=== PATIENT | male | born 1935 | race American Indian/Alaskan Native ===

== ENCOUNTER 2017-07-29 07:00 | Inpatient (IN) | payer MEDICARE ==
[2017-07-29 07:50] LABS: Basophils % (Auto) 0.1 % (0.0-1.8); Eosinophils % (Auto) 0.9 % (0.0-4.3); Hematocrit 32.7 % (35.5-45.6); Hemoglobin 10.4 gm/dl (11.8-15.2); Mean Corpuscular HGB Conc 32 % (32-34); Mean Corpuscular Hemoglobin 30 pg (28-32); Mean Corpuscular Volume 93 fl (84-94); Platelet Count 136 K/mm3 (140-440); Red Blood Count 3.52 M/mm3 (3.65-5.03); Red Cell Distribution Width 17.8 % (13.2-15.2); White Blood Count 8.3 K/mm3 (4.5-11.0)
[2017-07-29 08:08] LABS: INR 1.85 (0.87-1.13)
[2017-07-29 08:10] LABS: Albumin 2.9 g/dL (3.9-5); Albumin/Globulin Ratio 0.6 %; Bilirubin,Total 0.8 mg/dL (0.1-1.2); Calcium 8.4 mg/dL (8.4-10.2); Chloride 99.9 mmol/L (98-107); Potassium 4.4 mmol/L (3.6-5.0); Total Protein 7.7 g/dL (6.3-8.2)
--- NOTE | 2017-07-29 09:49 | Emergency Department Report ---
ED General Adult HPI - General Chief complaint: Pain General Stated complaint: LT LEG PAIN Time Seen by Provider: 07/29/17 09:35 Source: patient, EMS Mode of arrival: Stretcher Limitations: Physical Limitation - History of Present Illness Initial comments: She is very poor historian. However he states he has seen a realtime court reporter at [place] in the past. He states he's never been offered an AICD pacemaker. He denies previous myocardial infarction. He smokes concerned with his left leg which has become red and painful over the last week. However he also complains of substantial edema to involve both lower extremities and his scrotum. He complains of shortness of breath on exertion and somewhat at rest. He has been taking Lasix and lisinopril. -: days(s), week(s) Location: left, lower extremity Radiation: non-radiation Severity scale (0 -10): 8 Quality: burning Consistency: intermittent Improves with: none Worsens with: none Associated Symptoms: shortness of breath (as above indicated), other - Related Data Home Medications Medication Instructions Recorded Confirmed Last Taken Allopurinol 300 mg PO DAILY 02/24/16 04/09/16 04/09/16 09:00 Colchicine 0.6 mg PO DAILY 02/24/16 04/09/16 04/09/16 09:00 Furosemide 20 mg PO DAILY 02/24/16 04/09/16 04/09/16 09:00 Hydralazine HCl [Apresoline TAB] 50 mg PO DAILY 02/24/16 04/09/16 04/09/16 09:00 Lisinopril 20 mg PO DAILY 02/24/16 04/09/16 04/09/16 09:00 amLODIPine 10 mg PO DAILY 02/24/16 04/09/16 04/09/16 09:00 Allergies Allergy/AdvReac Type Severity Reaction Status Date / Time No Known Allergies Allergy Verified 02/24/16 11:14 ED Review of Systems ROS: Stated complaint: LT LEG PAIN Other details as noted in HPI Constitutional: weakness. denies: chills, fever Eyes: denies: eye pain, eye discharge, vision change ENT: denies: ear pain, throat pain Respiratory: shortness of breath. denies: cough, wheezing Cardiovascular: denies: chest pain, palpitations Endocrine: no symptoms reported Gastrointestinal: other (scrotal edema). denies: abdominal pain, nausea, diarrhea Genitourinary: denies: urgency, dysuria Musculoskeletal: denies: back pain, joint swelling, arthralgia Skin: other (walk-in erythema of the left leg below the knee and above the ankle. Somewhat brawny/lymphedema. There is 3-4+ edema of both legs but just erythema and warmth of the left leg.). denies: rash, lesions Neurological: other (no acute focal change). denies: headache, weakness, paresthesias Psychiatric: denies: anxiety, depression Hematological/Lymphatic: denies: easy bleeding, easy bruising ED Past Medical Hx - Past Medical History Hx Hypertension: Yes Hx Heart Attack/AMI: Yes - Surgical History Hx Coronary Stent: Yes - Social History Smoking Status: Unknown if ever smoked Substance Use Type: None - Medications Home Medications: Home Medications Medication Instructions Recorded Confirmed Last Taken Type Allopurinol 300 mg PO DAILY 02/24/16 04/09/16 04/09/16 09:00 History Colchicine 0.6 mg PO DAILY 02/24/16 04/09/16 04/09/16 09:00 History Furosemide 20 mg PO DAILY 02/24/16 04/09/16 04/09/16 09:00 History Hydralazine HCl [Apresoline TAB] 50 mg PO DAILY 02/24/16 04/09/16 04/09/16 09: 00 History Lisinopril 20 mg PO DAILY 02/24/16 04/09/16 04/09/16 09:00 History amLODIPine 10 mg PO DAILY 02/24/16 04/09/16 04/09/16 09:00 History ED Physical Exam - General Limitations: Physical Limitation General appearance: alert, in no apparent distress - Head Head exam: Present: atraumatic, normocephalic - Eye Eye exam: Present: normal appearance. Absent: scleral icterus - ENT ENT exam: Present: mucous membranes moist - Neck Neck exam: Present: normal inspection. Absent: tenderness, meningismus - Respiratory Respiratory exam: Present: rhonchi (at the bases), other (mildly tachypneic at rest). Absent: respiratory distress - Cardiovascular Cardiovascular Exam: Present: regular rate, normal rhythm. Absent: systolic murmur, diastolic murmur, rubs, gallop - GI/Abdominal GI/Abdominal exam: Present: soft, distended, normal bowel sounds. Absent: tenderness, guarding, rebound, rigid - Rectal Rectal exam: Present: deferred - External exam: Present: other (unable to visualize. Multiple nurses required for examination. They state swelling but no evidence of infection.) - Extremities Exam Extremities exam: Present: pedal edema (bilateral leg edema to the groin), other (erythema and warmth below the left knee and above the left ankle) - Back Exam Back exam: Present: normal inspection - Neurological Exam Neurological exam: Present: alert, oriented X3 - Psychiatric Psychiatric exam: Present: normal affect, normal mood - Skin Skin exam: Present: warm, dry, intact, normal color. Absent: rash ED Course Vital Signs 07/29/17 07/29/17 07/29/17 07:54 07:55 12:59 Temperature 99.3 F Pulse Rate 79 76 Respiratory 21 21 17 Rate Blood Pressure 121/51 128/82 [Left] O2 Sat by Pulse 90 92 95 Oximetry 07/29/17 07/29/17 14:00 14:47 Temperature 97.9 F Pulse Rate 77 Respiratory 16 Rate Blood Pressure 155/65 [Left] O2 Sat by Pulse 95 Oximetry - Reevaluation(s) Reevaluation #1: The patient is severely prerenal already., His chest x-rays did show cystoscopy with congestive heart failure. It appears that he has a very low EF and prerenal azotemia. Cardiology consultation was placed to Dr. Najera. The patient's rhythm is atrial fibrillation with a controlled rate. Vancomycin was prescribed for his cellulitis. He is admitted by Dr. Dotson for further care and evaluation. A Doppler of his left leg was negative for DVT. 07/29/17 15:52 07/29/17 15:54 ED Medical Decision Making - Lab Data Result diagrams: 07/29/17 07:28 07/29/17 07:28 Laboratory Results - last 24 hr 07/29/17 07/29/17 07/29/17 07:28 07:28 07:28 WBC 8.3 RBC 3.52 L Hgb 10.4 L Hct 32.7 L MCV 93 MCH 30 MCHC 32 RDW 17.8 H Plt Count 136 L Lymph % (Auto) 3.2 L [place] % (Auto) 9.5 H Eos % (Auto) 0.9 Baso % (Auto) 0.1 Lymph # 0.3 L [place] # 0.8 Eos # 0.1 Baso # 0.0 Seg Neutrophils % 86.3 H Seg Neutrophils # 7.2 PT 22.2 H INR 1.85 H Sodium 137 Potassium 4.4 Chloride 99.9 Carbon Dioxide 23 Anion Gap 19 BUN 82 H Creatinine 2.0 H Estimated GFR 39 BUN/Creatinine Ratio 41 Glucose 114 H Calcium 8.4 Total Bilirubin 0.80 AST 74 H ALT 33 Alkaline Phosphatase 152 H Total Protein 7.7 Albumin 2.9 L Albumin/Globulin Ratio 0.6 Critical care attestation.: If time is entered above; I have spent that time in minutes in the direct care of this critically ill patient, excluding procedure time. ED Disposition Clinical Impression: Congestive cardiomyopathy, Prerenal azotemia, Bilateral leg edema, Cellulitis of left leg Disposition: OP ADMIT IP TO THIS HOSP Is pt being admited?: Yes Does the pt Need Aspirin: Yes Condition: Stable Referrals: PRIMARY CARE, [Primary Care Provider] - 3-5 Days Time of Disposition: 15:55
[2017-07-29] MEDS ORDERED: NACL 0.9% 1000 ML 1,000 ML IV ONE (09:51)
--- NOTE | 2017-07-29 10:12 | XRay Report ---
AP CHEST: HISTORY: Edema No comparison. Mild cardiomegaly, mild pulmonary venous congestion and small right pleural effusion. There is compressive atelectasis at the right lung base. No obvious pneumonia or pneumothorax. IMPRESSION: Mild CHF.
[2017-07-29 10:44] LABS: Magnesium 2.5 mg/dL (1.7-2.3)
[2017-07-29] MEDS ORDERED: VANCOMYCIN 2,000 MG in NACL 0.9% 500 ML 500 ML IV ONE (10:45)
[2017-07-29] MEDS ORDERED: VANCOMYCIN PHARMACY TO DOSE IV SCH (11:00)
[2017-07-29 11:18] LABS: Creatine Kinase MB 5.5 ng/mL (0.0-4.0)
[2017-07-29 11:19] LABS: Phosphorous 4.1 mg/dL (2.5-4.5)
[2017-07-29 15:21] LABS: Bacteria,Urine 1+ /HPF (Negative); Bilirubin,Urine NEG (Negative); Blood,Urine MOD (Negative); Ketones,Urine NEG (Negative); Leukocyte Esterase,Urine NEG (Negative); Mucus,Urine FEW /HPF; Nitrite,Urine NEG (Negative); Protein,Urine <15 mg/dL mg/dL (Negative)
--- NOTE | 2017-07-29 15:31 | History and Physical Report ---
History of Present Illness Date of examination: 07/29/17 Date of admission: 07/29/17 Chief complaint: CC Increasing SOB and Increased swelling of both Lower extremities 1 week History of present illness: History of Present Illness Initial comments: 82 y/o AAM Obese with PMH significant for Htn Gout and CHF comes in for increased weight of about 30 Lbs, Sob on minimal exertion and increasing swelling of both lower extremities He is more concerned with his left leg which has become red and painful over the last week. However he also complains of substantial edema to involve both lower extremities and his scrotum. He complains of shortness of breath on exertion and somewhat at rest. He has been taking Lasix and lisinopril.Also orthopnea present.No Chest pain or palpitations. Has class IVNYHA symptoms. Exacerbating symptoms Exertion Relieving Symptoms Rest Past Medical History Hx Hypertension: Yes Hx Heart Attack/AMI: Yes ??CHF - Surgical History Hx Coronary Stent: Yes - Social History Smoking Status: Unknown if ever smoked Substance Use Type: None Fam Hx HTN - Medications Home Medications: Home Medications Medication Instructions Recorded Confirmed Last Taken Type Allopurinol 300 mg PO DAILY 02/24/16 04/09/16 04/09/16 09:00 History Colchicine 0.6 mg PO DAILY 02/24/16 04/09/16 04/09/16 09:00 History Furosemide 20 mg PO DAILY 02/24/16 04/09/16 04/09/16 09:00 History Hydralazine HCl [Apresoline TAB] 50 mg PO DAILY 02/24/16 04/09/16 04/09/16 09: 00 History Lisinopril 20 mg PO DAILY 02/24/16 04/09/16 04/09/16 09:00 History amLODIPine 10 mg PO DAILY 02/24/16 04/09/16 04/09/16 09:00 History Review of Systems Stated complaint: LT LEG PAIN Other details as noted in HPI Constitutional: weakness. denies: chills, fever Eyes: denies: eye pain, eye discharge, vision change ENT: denies: ear pain, throat pain Respiratory: shortness of breath. denies: cough, wheezing Cardiovascular: denies: chest pain, palpitations Endocrine: no symptoms reported Gastrointestinal: other (scrotal edema). denies: abdominal pain, nausea, diarrhea Genitourinary: denies: urgency, dysuria Musculoskeletal: denies: back pain, joint swelling, arthralgia Skin: other (walk-in erythema of the left leg below the knee and above the ankle. Somewhat brawny/lymphedema. There is 3-4+ edema of both legs but just erythema and warmth of the left leg.). denies: rash, lesions Neurological: other (no acute focal change). denies: headache, weakness, paresthesias Psychiatric: denies: anxiety, depression Hematological/Lymphatic: denies: easy bleeding, easy bruising Past History Past Medical History: heart failure, hypertension Social history: lives with family, full code. denies: smoking, alcohol abuse Family history: hypertension Medications and Allergies Allergies Allergy/AdvReac Type Severity Reaction Status Date / Time No Known Allergies Allergy Verified 02/24/16 11:14 Home Medications Medication Instructions Recorded Confirmed Last Taken Type Allopurinol 300 mg PO DAILY 02/24/16 07/29/17 07/28/17 History Colchicine 0.6 mg PO DAILY 02/24/16 07/29/17 07/28/17 History Furosemide 20 mg PO DAILY 02/24/16 07/29/17 07/28/17 History Hydralazine HCl [Apresoline TAB] 50 mg PO DAILY 02/24/16 07/29/17 07/28/17 History Lisinopril 20 mg PO DAILY 02/24/16 07/29/17 07/28/17 History Amlodipine Besylate [Norvasc] 10 mg PO QDAY 07/29/17 07/29/17 07/28/17 History traMADol [Ultram] 50 mg PO Q6HR PRN 07/29/17 07/29/17 Unknown History Active Meds: Active Medications Sodium Chloride (Nacl 0.9% 1000 Ml) 1,000 mls @ 125 mls/hr IV ONCE ONE Stop: 07/29/17 17:50 Last Admin: 07/29/17 15:12 Dose: Not Given Vancomycin HCl 2,000 mg/ (Sodium Chloride) 520 mls @ 250 mls/hr IV Q24H MARCUS Vancomycin HCl (Vancomycin Pharmacy To Dose) 1 each IV PKCONSULT MARCUS PRN Reason: Protocol Exam - Physical Exam Narrative exam: In slight distress - Constitutional Vitals: Temp Pulse Resp BP Pulse Ox 97.9 F 77 16 155/65 95 07/29/17 14:47 07/29/17 14:00 07/29/17 14:00 07/29/17 14:00 07/29/17 14:00 General appearance: Present: mild distress, well-nourished - EENT Eyes: Present: PERRL ENT: hearing intact, clear oral mucosa - Neck Neck: Present: supple, normal ROM - Respiratory Respiratory effort: normal Respiratory: bilateral: CTA, rales - Cardiovascular Heart rate: 80 Rhythm: regular Heart Sounds: Present: S1 & S2. Absent: rub, click - Extremities Extremities: no ischemia, pulses intact, pulses symmetrical, No edema Extremity abnormal: edema (Errol pitting edema), erythema (LLE from mid ant tibial region to ankle Left) Peripheral Pulses: within normal limits - Abdominal General gastrointestinal: Present: soft, non-tender, non-distended, normal bowel sounds Male genitourinary: Present: normal - Integumentary Integumentary: Present: clear, warm, dry - Musculoskeletal Musculoskeletal: gait normal, strength equal bilaterally - Psychiatric Psychiatric: appropriate mood/affect, intact judgment & insight - Neurologic Neurologic: CNII-XII intact, moves all extremities Results - Labs CBC & Chem 7: 07/29/17 07:28 07/29/17 07:28 Labs: Laboratory Last Values WBC 8.3 K/mm3 (4.5-11.0) 07/29/17 07:28 RBC 3.52 M/mm3 (3.65-5.03) L 07/29/17 07:28 Hgb 10.4 gm/dl (11.8-15.2) L 07/29/17 07:28 Hct 32.7 % (35.5-45.6) L 07/29/17 07:28 MCV 93 fl (84-94) 07/29/17 07:28 MCH 30 pg (28-32) 07/29/17 07:28 MCHC 32 % (32-34) 07/29/17 07:28 RDW 17.8 % (13.2-15.2) H 07/29/17 07:28 Plt Count 136 K/mm3 (140-440) L 07/29/17 07:28 Lymph % (Auto) 3.2 % (13.4-35.0) L 07/29/17 07:28 [place] % (Auto) 9.5 % (0.0-7.3) H 07/29/17 07:28 Eos % (Auto) 0.9 % (0.0-4.3) 07/29/17 07:28 Baso % (Auto) 0.1 % (0.0-1.8) 07/29/17 07:28 Lymph # 0.3 K/mm3 (1.2-5.4) L 07/29/17 07:28 [place] # 0.8 K/mm3 (0.0-0.8) 07/29/17 07:28 Eos # 0.1 K/mm3 (0.0-0.4) 07/29/17 07:28 Baso # 0.0 K/mm3 (0.0-0.1) 07/29/17 07:28 Seg Neutrophils % 86.3 % (40.0-70.0) H 07/29/17 07:28 Seg Neutrophils # 7.2 K/mm3 (1.8-7.7) 07/29/17 07:28 PT 22.2 Sec. (12.2-14.9) H 07/29/17 07:28 INR 1.85 (0.87-1.13) H 07/29/17 07:28 D-Dimer 683.47 ng/mlDDU (0-234) H 07/29/17 07:28 Sodium 137 mmol/L (137-145) 07/29/17 07:28 Potassium 4.4 mmol/L (3.6-5.0) 07/29/17 07:28 Chloride 99.9 mmol/L (98-107) 07/29/17 07:28 Carbon Dioxide 23 mmol/L (22-30) 07/29/17 07:28 Anion Gap 19 mmol/L 07/29/17 07:28 BUN 82 mg/dL (9-20) H 07/29/17 07:28 Creatinine 2.0 mg/dL (0.8-1.5) H 07/29/17 07:28 Estimated GFR 39 ml/min 07/29/17 07:28 BUN/Creatinine Ratio 41 % 07/29/17 07:28 Glucose 114 mg/dL (75-100) H 07/29/17 07:28 Lactic Acid 1.50 mmol/L (0.7-2.0) 07/29/17 10:05 Calcium 8.4 mg/dL (8.4-10.2) 07/29/17 07:28 Phosphorus 4.10 mg/dL (2.5-4.5) 07/29/17 07:28 Magnesium 2.50 mg/dL (1.7-2.3) H 07/29/17 07:28 Total Bilirubin 0.80 mg/dL (0.1-1.2) 07/29/17 07:28 AST 74 units/L (5-40) H 07/29/17 07:28 ALT 33 units/L (7-56) 07/29/17 07:28 Alkaline Phosphatase 152 units/L (35-129) H 07/29/17 07:28 Total Creatine Kinase 451 units/L (55-170) H 07/29/17 07:28 CK-MB (CK-2) 5.5 ng/mL (0.0-4.0) H 07/29/17 07:28 CK-MB (CK-2) Rel Index 1.2 (0-4) 07/29/17 07:28 Troponin T 0.087 ng/mL (0.00-0.029) H 07/29/17 07:28 NT-Pro-B Natriuret Pep 81582 pg/mL (0-900) H 07/29/17 07:28 Total Protein 7.7 g/dL (6.3-8.2) 07/29/17 07:28 Albumin 2.9 g/dL (3.9-5) L 07/29/17 07:28 Albumin/Globulin Ratio 0.6 % 07/29/17 07:28 Triglycerides 75 mg/dL (2-149) 07/29/17 07:28 Cholesterol 78 mg/dL (50-199) 07/29/17 07:28 LDL Cholesterol Direct 48 mg/dL (50-130) L 07/29/17 07:28 HDL Cholesterol 15 mg/dL (40-59) L 07/29/17 07:28 Cholesterol/HDL Ratio 5.20 % 07/29/17 07:28 Urine Bilirubin Neg (Negative) 07/29/17 14:47 Urine RBC (Auto) 6.0 /HPF (0.0-6.0) 07/29/17 14:47 U Epithel Cells (Auto) 1.0 /HPF (0-13.0) 07/29/17 14:47 Short CBC 07/29/17 Range/Units 07:28 WBC 8.3 (4.5-11.0) K/mm3 Hgb 10.4 L (11.8-15.2) gm/dl Hct 32.7 L (35.5-45.6) % Plt Count 136 L (140-440) K/mm3 BMP 07/29/17 07:28 Sodium 137 Potassium 4.4 Chloride 99.9 Carbon Dioxide 23 BUN 82 H Creatinine 2.0 H Glucose 114 H Calcium 8.4 Cardiac Enzymes 07/29/17 07/29/17 Range/Units 07:28 07:28 Total Creatine Kinase 451 H (55-170) units/L CK-MB (CK-2) 5.5 H (0.0-4.0) ng/mL Troponin T 0.087 H (0.00-0.029) ng/mL Liver Function 07/29/17 Range/Units 07:28 Total Bilirubin 0.80 (0.1-1.2) mg/dL AST 74 H (5-40) units/L ALT 33 (7-56) units/L Alkaline Phosphatase 152 H (35-129) units/L Albumin 2.9 L (3.9-5) g/dL Urine 07/29/17 Range/Units 14:47 Urine Color Yellow (Yellow) Urine pH 5.0 (5.0-7.0) Ur Specific [place] 1.013 (1.003-1.030) Urine Protein <15 mg/dl (Negative) mg/dL Urine Glucose (UA) Neg (Negative) mg/dL - Imaging and Cardiology EKG: report reviewed Chest x-ray: report reviewed (Mild CHF) Assessment and Plan Advance Directives: Yes (Full code) VTE prophylaxis?: Chemical Plan of care discussed with patient/family: Yes - Patient Problems (1) Cellulitis of left leg Current Visit: Yes Status: Acute Plan to address problem: Patient started on Clindamycin for possible Staph cellulitis (2) Acute exacerbation of CHF (congestive heart failure) Current Visit: Yes Status: Acute Qualifiers: Congestive heart failure type: combined Qualified Code(s): I50.43 - Acute on chronic combined systolic (congestive) and diastolic (congestive) heart failure Plan to address problem: Patient initiated on IV lAsix and Kcl Daily weights and Check Echo.For EF [place] [id number] (3) HTN (hypertension) Current Visit: Yes Status: Chronic Qualifiers: Hypertension type: essential hypertension Qualified Code(s): I10 - Essential (primary) hypertension Plan to address problem: Cont Hydralazine (4) Morbid obesity with BMI of 50.0-59.9, adult Current Visit: Yes Status: Chronic Plan to address problem: Counseled about weight loss requirements (5) Anemia Current Visit: Yes Status: Chronic Qualifiers: Anemia type: iron deficiency Plan to address problem: Check Iron b12 and folic acid (6) DVT prophylaxis Current Visit: Yes Status: Acute Plan to address problem: On lovenox
[2017-07-29] MEDS ORDERED: BABY ASPIRIN PO ONE (15:55)
[2017-07-29] MEDS ORDERED: ULTRAM PO PRN (20:14)
[2017-07-29] MEDS ORDERED: NON-FORMULARY (Hydralazine Hcl [Apresoline Tab] 50 MG) PO SCH (20:15)
[2017-07-29] MEDS ORDERED: ZOFRAN IV PRN (20:17)
[2017-07-29] MEDS ORDERED: AMBIEN PO PRN (20:17)
[2017-07-29] MEDS ORDERED: TYLENOL PO PRN (20:17)
[2017-07-29] MEDS ORDERED: MORPHINE IV PRN (20:17)
[2017-07-29] MEDS ORDERED: MILK OF MAGNESIA PO PRN (20:17)
[2017-07-29] MEDS ORDERED: DULCOLAX PR PRN (20:17)
[2017-07-29] MEDS ORDERED: LASIX PO SCH (21:00)
[2017-07-29] MEDS ORDERED: ZYLOPRIM PO SCH (21:00)
[2017-07-29] MEDS ORDERED: PEPCID PO SCH (22:00)
[2017-07-29] MEDS ORDERED: LASIX IV ONE (23:07)
[2017-07-29] MEDS: CLEOCIN 900 MG/50 mL 900 MG/50 ML BAG IV SCH (23:26)
[2017-07-29] MEDS: PEPCID PO SCH (23:26)
[2017-07-29] MEDS: K-DUR PO SCH (23:27)
[2017-07-29] MEDS: ZYLOPRIM PO SCH (23:27)
[2017-07-29] MEDS: ZESTRIL PO SCH (23:28)
[2017-07-29] MEDS: APRESOLINE PO SCH (23:28)
[2017-07-29] MEDS: NORVASC PO SCH (23:29)
[2017-07-29] MEDS: COLCRYS PO SCH (23:46)
[2017-07-30] MEDS: APRESOLINE PO SCH ×3 (05:18→23:13)
[2017-07-30] MEDS: LASIX IV SCH ×2 (05:18→18:09)
[2017-07-30] MEDS: CLEOCIN 900 MG/50 mL 900 MG/50 ML BAG IV SCH ×3 (05:18→23:13)
--- NOTE | 2017-07-30 08:36 | Progress Note ---
<KARO ALVARES - Last Filed: 07/30/17 15:11> Assessment and Plan Assessment and plan: 82 y/o AAM Obese with PMH significant for HTN Gout and CHF comes in for increased weight of about 30 Lbs, Sob on minimal exertion and increasing swelling of both lower extremities He is more concerned with his left leg which has become red and painful over the last week. However he also complains of substantial edema to involve both lower extremities and his scrotum. He complains of shortness of breath on exertion and somewhat at rest. He has been taking Lasix and lisinopril.Also orthopnea present.No Chest pain or palpitations. Altered Mental Status Head CT unremarkable Will monitor labs Nephrology consulted for PAO PAO Renal US ordered Nephrology consulted Scrotal edema / epididymitis Scrotal support Testicular doppler Cellulitis of left leg Blood cultures taken Pt on empiric clindamycin Acute exacerbation of CHF (congestive heart failure) Patient initiated on IV lAsix and Kcl Daily weights and Check Echo.[place] [id number] Rodriguez catheter to measure urine output HTN (hypertension) Cont Hydralazine Anemia Check Iron b12 and folic acid Gout Allopurinol DVT prophylaxis SCD History Interval history: Patient very lethargic and drowsy, difficult to arouse, only mumbling when aroused Hospitalist Physical - Constitutional Vitals: Temp Pulse Resp BP Pulse Ox 98.5 F 78 22 101/45 97 07/30/17 05:13 07/30/17 05:18 07/30/17 05:13 07/30/17 05:18 07/30/17 05:13 General appearance: Present: mild distress, well-nourished, obese - EENT Eyes: Present: PERRL, EOM intact ENT: hearing intact, clear oral mucosa - Neck Neck: Present: supple, normal ROM - Respiratory Respiratory effort: normal Respiratory: bilateral: CTA - Cardiovascular Rhythm: regular Heart Sounds: Present: S1 & S2 - Extremities Extremities: no ischemia Extremity abnormal: edema (bilateral 2+ pitting) Peripheral Pulses: within normal limits - Abdominal General gastrointestinal: deferred - Integumentary Integumentary: Present: clear, warm, dry - Psychiatric Psychiatric: other - Neurologic Neurologic: moves all extremities - Allied Health Allied health notes reviewed: nursing Results - Labs CBC & Chem 7: 07/30/17 08:29 07/30/17 13:04 Labs: Laboratory Last Values WBC 8.3 K/mm3 (4.5-11.0) 07/29/17 07:28 RBC 3.52 M/mm3 (3.65-5.03) L 07/29/17 07:28 Hgb 10.4 gm/dl (11.8-15.2) L 07/29/17 07:28 Hct 32.7 % (35.5-45.6) L 07/29/17 07:28 MCV 93 fl (84-94) 07/29/17 07:28 MCH 30 pg (28-32) 07/29/17 07:28 MCHC 32 % (32-34) 07/29/17 07:28 RDW 17.8 % (13.2-15.2) H 07/29/17 07:28 Plt Count 136 K/mm3 (140-440) L 07/29/17 07:28 Lymph % (Auto) 3.2 % (13.4-35.0) L 07/29/17 07:28 [place] % (Auto) 9.5 % (0.0-7.3) H 07/29/17 07:28 Eos % (Auto) 0.9 % (0.0-4.3) 07/29/17 07:28 Baso % (Auto) 0.1 % (0.0-1.8) 07/29/17 07:28 Lymph # 0.3 K/mm3 (1.2-5.4) L 07/29/17 07:28 [place] # 0.8 K/mm3 (0.0-0.8) 07/29/17 07:28 Eos # 0.1 K/mm3 (0.0-0.4) 07/29/17 07:28 Baso # 0.0 K/mm3 (0.0-0.1) 07/29/17 07:28 Seg Neutrophils % 86.3 % (40.0-70.0) H 07/29/17 07:28 Seg Neutrophils # 7.2 K/mm3 (1.8-7.7) 07/29/17 07:28 PT 22.2 Sec. (12.2-14.9) H 07/29/17 07:28 INR 1.85 (0.87-1.13) H 07/29/17 07:28 D-Dimer 683.47 ng/mlDDU (0-234) H 07/29/17 07:28 Sodium 137 mmol/L (137-145) 07/29/17 07:28 Potassium 4.4 mmol/L (3.6-5.0) 07/29/17 07:28 Chloride 99.9 mmol/L (98-107) 07/29/17 07:28 Carbon Dioxide 23 mmol/L (22-30) 07/29/17 07:28 Anion Gap 19 mmol/L 07/29/17 07:28 BUN 82 mg/dL (9-20) H 07/29/17 07:28 Creatinine 2.0 mg/dL (0.8-1.5) H 07/29/17 07:28 Estimated GFR 39 ml/min 07/29/17 07:28 BUN/Creatinine Ratio 41 % 07/29/17 07:28 Glucose 114 mg/dL (75-100) H 07/29/17 07:28 Hemoglobin A1c 5.6 % (4-6) 07/29/17 Unknown Lactic Acid 1.50 mmol/L (0.7-2.0) 07/29/17 10:05 Calcium 8.4 mg/dL (8.4-10.2) 07/29/17 07:28 Phosphorus 4.10 mg/dL (2.5-4.5) 07/29/17 07:28 Magnesium 2.50 mg/dL (1.7-2.3) H 07/29/17 07:28 Total Bilirubin 0.80 mg/dL (0.1-1.2) 07/29/17 07:28 AST 74 units/L (5-40) H 07/29/17 07:28 ALT 33 units/L (7-56) 07/29/17 07:28 Alkaline Phosphatase 152 units/L (35-129) H 07/29/17 07:28 Total Creatine Kinase 451 units/L (55-170) H 07/29/17 07:28 CK-MB (CK-2) 5.5 ng/mL (0.0-4.0) H 07/29/17 07:28 CK-MB (CK-2) Rel Index 1.2 (0-4) 07/29/17 07:28 Troponin T 0.087 ng/mL (0.00-0.029) H 07/29/17 07:28 NT-Pro-B Natriuret Pep 84951 pg/mL (0-900) H 07/29/17 07:28 Total Protein 7.7 g/dL (6.3-8.2) 07/29/17 07:28 Albumin 2.9 g/dL (3.9-5) L 07/29/17 07:28 Albumin/Globulin Ratio 0.6 % 07/29/17 07:28 Triglycerides 75 mg/dL (2-149) 07/29/17 07:28 Cholesterol 78 mg/dL (50-199) 07/29/17 07:28 LDL Cholesterol Direct 48 mg/dL (50-130) L 07/29/17 07:28 HDL Cholesterol 15 mg/dL (40-59) L 07/29/17 07:28 Cholesterol/HDL Ratio 5.20 % 07/29/17 07:28 Urine Color Yellow (Yellow) 07/29/17 14:47 Urine Turbidity Clear (Clear) 07/29/17 14:47 Urine pH 5.0 (5.0-7.0) 07/29/17 14:47 Ur Specific [place] 1.013 (1.003-1.030) 07/29/17 14:47 Urine Protein <15 mg/dl mg/dL (Negative) 07/29/17 14:47 Urine Glucose (UA) Neg mg/dL (Negative) 07/29/17 14:47 Urine Ketones Neg mg/dL (Negative) 07/29/17 14:47 Urine Blood Mod (Negative) 07/29/17 14:47 Urine Nitrite Neg (Negative) 07/29/17 14:47 Urine Bilirubin Neg (Negative) 07/29/17 14:47 Urine Urobilinogen 2.0 mg/dL (<2.0) 07/29/17 14:47 Ur Leukocyte Esterase Neg (Negative) 07/29/17 14:47 Urine WBC (Auto) 2.0 /HPF (0.0-6.0) 07/29/17 14:47 Urine RBC (Auto) 6.0 /HPF (0.0-6.0) 07/29/17 14:47 U Epithel Cells (Auto) 1.0 /HPF (0-13.0) 07/29/17 14:47 Urine Bacteria (Auto) 1+ /HPF (Negative) 07/29/17 14:47 Urine Mucus Few /HPF 07/29/17 14:47 <ALEC CORDOAV - Last Filed: 07/31/17 12:43> Assessment and Plan Assessment and plan: I saw and evaluated the patient. I agree with the findings and the plan of care as documented in the Physician [employer] Operations Supervisor's~note, with the following corrections and additions. Acute Diastolic exacerbation of CHF (congestive heart failure)- Cardiology following. Hospitalist Physical - Constitutional Vitals: Temp Pulse Resp BP Pulse Ox 97.6 F 60 20 113/56 94 07/31/17 05:23 07/31/17 10:31 07/31/17 05:23 07/31/17 10:31 07/31/17 10:00 Results - Labs CBC & Chem 7: 07/30/17 08:29 07/31/17 04:03 Labs: Laboratory Last Values WBC 6.8 K/mm3 (4.5-11.0) 07/30/17 08:29 RBC 3.36 M/mm3 (3.65-5.03) L 07/30/17 08:29 Hgb 9.9 gm/dl (11.8-15.2) L 07/30/17 08:29 Hct 31.6 % (35.5-45.6) L 07/30/17 08:29 MCV 94 fl (84-94) 07/30/17 08:29 MCH 29 pg (28-32) 07/30/17 08:29 MCHC 31 % (32-34) L 07/30/17 08:29 RDW 17.9 % (13.2-15.2) H 07/30/17 08:29 Plt Count 163 K/mm3 (140-440) 07/30/17 08:29 Lymph % (Auto) 4.3 % (13.4-35.0) L 07/30/17 08:29 [place] % (Auto) 9.3 % (0.0-7.3) H 07/30/17 08:29 Eos % (Auto) 1.0 % (0.0-4.3) 07/30/17 08:29 Baso % (Auto) 0.1 % (0.0-1.8) 07/30/17 08:29 Lymph # 0.3 K/mm3 (1.2-5.4) L 07/30/17 08:29 [place] # 0.6 K/mm3 (0.0-0.8) 07/30/17 08:29 Eos # 0.1 K/mm3 (0.0-0.4) 07/30/17 08:29 Baso # 0.0 K/mm3 (0.0-0.1) 07/30/17 08:29 Seg Neutrophils % 85.3 % (40.0-70.0) H 07/30/17 08:29 Seg Neutrophils # 5.8 K/mm3 (1.8-7.7) 07/30/17 08:29 PT 22.2 Sec. (12.2-14.9) H 07/29/17 07:28 INR 1.85 (0.87-1.13) H 07/29/17 07:28 D-Dimer 683.47 ng/mlDDU (0-234) H 07/29/17 07:28 POC ABG pH 7.276 (7.35-7.45) L 07/30/17 10:20 POC ABG pCO2 47.3 (35-45) H 07/30/17 10:20 POC ABG pO2 75 (80-105) L 07/30/17 10:20 POC ABG HCO3 22.0 07/30/17 10:20 POC ABG Total CO2 23 07/30/17 10:20 POC ABG O2 Sat 93 07/30/17 10:20 POC ABG Base Excess -5 07/30/17 10:20 FiO2 6 % 07/30/17 10:20 Sodium 138 mmol/L (137-145) 07/31/17 04:03 Potassium 5.3 mmol/L (3.6-5.0) H 07/31/17 04:03 Chloride 103.0 mmol/L (98-107) 07/31/17 04:03 Carbon Dioxide 18 mmol/L (22-30) L 07/31/17 04:03 Anion Gap 22 mmol/L 07/31/17 04:03 BUN 91 mg/dL (9-20) H 07/31/17 04:03 Creatinine 2.6 mg/dL (0.8-1.5) H 07/31/17 04:03 Estimated GFR 29 ml/min 07/31/17 04:03 BUN/Creatinine Ratio 35 % 07/31/17 04:03 Glucose 92 mg/dL (75-100) 07/31/17 04:03 Hemoglobin A1c 5.6 % (4-6) 07/29/17 Unknown Lactic Acid 1.50 mmol/L (0.7-2.0) 07/29/17 10:05 Calcium 8.2 mg/dL (8.4-10.2) L 07/31/17 04:03 Phosphorus 4.10 mg/dL (2.5-4.5) 07/29/17 07:28 Magnesium 2.50 mg/dL (1.7-2.3) H 07/29/17 07:28 Iron 25 ug/dL (49-181) L 07/30/17 08:29 TIBC 141 mcg/dL (250-450) L 07/30/17 08:29 % Saturation 17.73 % 07/30/17 08:29 Transferrin 133 mg/dl (180-329) L 07/30/17 08:29 Total Bilirubin 0.70 mg/dL (0.1-1.2) 07/30/17 08:29 AST 46 units/L (5-40) H 07/30/17 08:29 ALT 28 units/L (7-56) 07/30/17 08:29 Alkaline Phosphatase 134 units/L (35-129) H 07/30/17 08:29 Ammonia 32.0 umol/L (25-60) 07/30/17 13:04 Total Creatine Kinase 451 units/L (55-170) H 07/29/17 07:28 CK-MB (CK-2) 5.5 ng/mL (0.0-4.0) H 07/29/17 07:28 CK-MB (CK-2) Rel Index 1.2 (0-4) 07/29/17 07:28 Troponin T 0.083 ng/mL (0.00-0.029) H 07/30/17 18:24 NT-Pro-B Natriuret Pep 30987 pg/mL (0-900) H 07/29/17 07:28 Total Protein 7.8 g/dL (6.3-8.2) 07/30/17 08:29 Albumin 2.6 g/dL (3.9-5) L 07/30/17 08:29 Albumin/Globulin Ratio 0.5 % 07/30/17 08:29 Triglycerides 75 mg/dL (2-149) 07/29/17 07:28 Cholesterol 78 mg/dL (50-199) 07/29/17 07:28 LDL Cholesterol Direct 48 mg/dL (50-130) L 07/29/17 07:28 HDL Cholesterol 15 mg/dL (40-59) L 07/29/17 07:28 Cholesterol/HDL Ratio 5.20 % 07/29/17 07:28 Vitamin B12 > 2000 pg/mL (211-911) H 07/30/17 13:04 Urine Color Yellow (Yellow) 07/29/17 14:47 Urine Turbidity Clear (Clear) 07/29/17 14:47 Urine pH 5.0 (5.0-7.0) 07/29/17 14:47 Ur Specific [place] 1.013 (1.003-1.030) 07/29/17 14:47 Urine Protein <15 mg/dl mg/dL (Negative) 07/29/17 14:47 Urine Glucose (UA) Neg mg/dL (Negative) 07/29/17 14:47 Urine Ketones Neg mg/dL (Negative) 07/29/17 14:47 Urine Blood Mod (Negative) 07/29/17 14:47 Urine Nitrite Neg (Negative) 07/29/17 14:47 Urine Bilirubin Neg (Negative) 07/29/17 14:47 Urine Urobilinogen 2.0 mg/dL (<2.0) 07/29/17 14:47 Ur Leukocyte Esterase Neg (Negative) 07/29/17 14:47 Urine WBC (Auto) 2.0 /HPF (0.0-6.0) 07/29/17 14:47 Urine RBC (Auto) 6.0 /HPF (0.0-6.0) 07/29/17 14:47 U Epithel Cells (Auto) 1.0 /HPF (0-13.0) 07/29/17 14:47 Urine Bacteria (Auto) 1+ /HPF (Negative) 07/29/17 14:47 Urine Mucus Few /HPF 07/29/17 14:47 Hepatitis A IgM Ab Non-reactive (NonReactive) 07/30/17 13:04 Hep Bs Antigen Non-reactive (Negative) 07/30/17 13:04 Hep B Core IgM Ab Non-reactive (NonReactive) 07/30/17 13:04 Hepatitis C Antibody Non-reactive (NonReactive) 07/30/17 13:04
[2017-07-30 08:58] LABS: Basophils % (Auto) 0.1 % (0.0-1.8); Hematocrit 31.6 % (35.5-45.6); Hemoglobin 9.9 gm/dl (11.8-15.2); Mean Corpuscular HGB Conc 31 % (32-34); Mean Corpuscular Hemoglobin 29 pg (28-32); Mean Corpuscular Volume 94 fl (84-94); Platelet Count 163 K/mm3 (140-440); Red Blood Count 3.36 M/mm3 (3.65-5.03); Red Cell Distribution Width 17.9 % (13.2-15.2); White Blood Count 6.8 K/mm3 (4.5-11.0)
[2017-07-30 09:08] LABS: Albumin 2.6 g/dL (3.9-5); Albumin/Globulin Ratio 0.5 %; Bilirubin,Total 0.7 mg/dL (0.1-1.2); Calcium 8.3 mg/dL (8.4-10.2); Chloride 105.4 mmol/L (98-107); Potassium 5.1 mmol/L (3.6-5.0); Total Protein 7.8 g/dL (6.3-8.2)
[2017-07-30 10:24] LABS: ISTAT Base Excess -5; ISTAT PCO2 47.3 (35-45); ISTAT PH 7.276 (7.35-7.45); ISTAT PO2 75 (80-105); ISTAT SO2 93; ISTAT TCO2 23
[2017-07-30] MEDS: NORVASC PO SCH (11:00)
[2017-07-30] MEDS: ZYLOPRIM PO SCH (11:00)
[2017-07-30] MEDS: PEPCID PO SCH ×2 (11:00→23:13)
--- NOTE | 2017-07-30 11:00 | Consultation ---
History of Present Illness Consult date: 07/30/17 Consult reason: other (Anasarca) History of present illness: 82yr old male who was brought to this hospital with complaints of shortness of breath, left lower extremity pain and edema. Cardiology consultation was requested for anasarca. Chest x-ray reports mild cardiomegaly and mild CHF. History is unobtainable due to alteration on mental status. There was no reports of chest pain. A 12 lead ECG is atrial fibrillation with a well controlled ventricular rate. Prior records reviewed. Patient follows with [facility] on [place]. He has a history of chronic atrial fibrillation but is not on oral anticoagulation therapy for unclear reasons. A year ago he had a cardiac cath that reports no significant coronary artery disease with a preserved LV systolic fraction. He also has a history of chronic kidney disease and hypertension. Past History Social history: lives with family, full code. denies: smoking, alcohol abuse Family history: hypertension Medications and Allergies Allergies Allergy/AdvReac Type Severity Reaction Status Date / Time No Known Allergies Allergy Verified 02/24/16 11:14 Home Medications Medication Instructions Recorded Confirmed Last Taken Type Allopurinol 300 mg PO DAILY 02/24/16 07/29/17 07/28/17 History Colchicine 0.6 mg PO DAILY 02/24/16 07/29/17 07/28/17 History Furosemide 20 mg PO DAILY 02/24/16 07/29/17 07/28/17 History Hydralazine HCl [Apresoline TAB] 50 mg PO DAILY 02/24/16 07/29/17 07/28/17 History Lisinopril 20 mg PO DAILY 02/24/16 07/29/17 07/28/17 History Amlodipine Besylate [Norvasc] 10 mg PO QDAY 07/29/17 07/29/17 07/28/17 History traMADol [Ultram] 50 mg PO Q6HR PRN 07/29/17 07/29/17 Unknown History Active Meds: Active Medications Acetaminophen (Tylenol) 650 mg PO Q4H PRN PRN Reason: Pain MILD(1-3)/Fever >100.5/MANCIA Allopurinol (Zyloprim) 100 mg PO QDAY [facility] Last Admin: 07/29/17 23:27 Dose: 100 mg Amlodipine Besylate (Norvasc) 10 mg PO QDAY [facility] Last Admin: 07/29/17 23:29 Dose: Not Given Bisacodyl (Dulcolax) 10 mg [place] QDAY PRN PRN Reason: Constipation unrelieved by MOM Famotidine (Pepcid) 10 mg PO BID [facility] Last Admin: 07/29/17 23:26 Dose: 10 mg Furosemide (Lasix) 40 mg IV 0600,1800 [facility] Last Admin: 07/30/17 05:18 Dose: 40 mg Hydralazine HCl (Apresoline) 50 mg PO Q8HR [facility] Last Admin: 07/30/17 05:18 Dose: Not Given Clindamycin HCl (Cleocin 900 Mg/50 Ml) 900 mg in 50 mls @ 100 mls/hr IV Q8HR MARCUS PRN Reason: Protocol Last Admin: 07/30/17 05:18 Dose: 100 mls/hr Magnesium Hydroxide (Milk Of Magnesia) 30 ml PO Q4H PRN PRN Reason: Constipation Morphine Sulfate (Morphine) 4 mg IV Q4H PRN PRN Reason: Pain , Severe (7-10) Ondansetron HCl (Zofran) 4 mg IV Q8H PRN PRN Reason: N/V unrelieved by Reglan Oxycodone/Acetaminophen (Percocet 5/325) 1 tab PO Q6H PRN PRN Reason: Pain, Moderate (4-6) Tramadol HCl (Ultram) 50 mg PO Q6HR PRN PRN Reason: Pain Zolpidem Tartrate (Ambien) 5 mg PO QHS PRN PRN Reason: Insomnia Physical Examination Vital Signs Temp Pulse Resp BP Pulse Ox 99.3 F 79 21 121/51 90 07/29/17 07:54 07/29/17 07:54 07/29/17 07:54 07/29/17 07:54 07/29/17 07:54 Cardiac: Positive: irregularly irregular Results 07/30/17 08:29 07/30/17 08:29 Cardiac Enzymes 07/29/17 07/30/17 Range/Units 07:28 08:29 AST 46 H (5-40) units/L CK-MB (CK-2) 5.5 H (0.0-4.0) ng/mL Lipids 07/29/17 Range/Units 07:28 Triglycerides 75 (2-149) mg/dL Cholesterol 78 (50-199) mg/dL HDL Cholesterol 15 L (40-59) mg/dL Cholesterol/HDL Ratio 5.20 % CBC 07/30/17 Range/Units 08:29 WBC 6.8 (4.5-11.0) K/mm3 RBC 3.36 L (3.65-5.03) M/mm3 Hgb 9.9 L (11.8-15.2) gm/dl Hct 31.6 L (35.5-45.6) % Plt Count 163 (140-440) K/mm3 Lymph # 0.3 L (1.2-5.4) K/mm3 [place] # 0.6 (0.0-0.8) K/mm3 Eos # 0.1 (0.0-0.4) K/mm3 Baso # 0.0 (0.0-0.1) K/mm3 Comprehensive Metabolic Panel 07/30/17 Range/Units 08:29 Sodium 140 (137-145) mmol/L Potassium 5.1 H (3.6-5.0) mmol/L Chloride 105.4 (98-107) mmol/L Carbon Dioxide 21 L (22-30) mmol/L BUN 89 H (9-20) mg/dL Creatinine 2.2 H (0.8-1.5) mg/dL Glucose 115 H (75-100) mg/dL Calcium 8.3 L (8.4-10.2) mg/dL AST 46 H (5-40) units/L ALT 28 (7-56) units/L Alkaline Phosphatase 134 H (35-129) units/L Total Protein 7.8 (6.3-8.2) g/dL Albumin 2.6 L (3.9-5) g/dL Assessment and Plan Alteration of mental status Left lower extremity cellulitis no evidence of DVT CKD Hypertension Chronic Afib, rate controlled [facility] 2016: no significant CAD with preserved LV systolic function.
--- NOTE | 2017-07-30 11:07 | Consultation ---
History of Present Illness - Reason for Consult Consult date: 07/30/17 acute renal failure Requesting physician: ALEC CORDOVA - History of Present Illness 82 y/o AAM Obese with PMH significant for Htn Gout and CHF comes in for increased weight of about 30 Lbs, Sob on minimal exertion and increasing swelling of both lower extremities . Patient is lethargic at this time. Unable to give me any additional history. Information obtained from patient's current chart . He complained of shortness of breath on exertion and somewhat at rest. He has been taking Lasix and lisinopril.Also orthopnea present.No Chest pain or palpitations. Renal consult is requested because of a serum creatinine of 2.2. Unknown whether he has had any renal insufficiency in the past Past History Past Medical History: heart failure, hypertension Social history: lives with family, full code. denies: smoking, alcohol abuse Family history: hypertension Medications and Allergies Allergies Allergy/AdvReac Type Severity Reaction Status Date / Time No Known Allergies Allergy Verified 02/24/16 11:14 Home Medications Medication Instructions Recorded Confirmed Last Taken Type Allopurinol 300 mg PO DAILY 02/24/16 07/29/17 07/28/17 History Colchicine 0.6 mg PO DAILY 02/24/16 07/29/17 07/28/17 History Furosemide 20 mg PO DAILY 02/24/16 07/29/17 07/28/17 History Hydralazine HCl [Apresoline TAB] 50 mg PO DAILY 02/24/16 07/29/17 07/28/17 History Lisinopril 20 mg PO DAILY 02/24/16 07/29/17 07/28/17 History Amlodipine Besylate [Norvasc] 10 mg PO QDAY 07/29/17 07/29/17 07/28/17 History traMADol [Ultram] 50 mg PO Q6HR PRN 07/29/17 07/29/17 Unknown History Active Meds: Active Medications Acetaminophen (Tylenol) 650 mg PO Q4H PRN PRN Reason: Pain MILD(1-3)/Fever >100.5/MANCIA Allopurinol (Zyloprim) 100 mg PO QDAY [facility] Last Admin: 07/29/17 23:27 Dose: 100 mg Amlodipine Besylate (Norvasc) 10 mg PO QDAY [facility] Last Admin: 07/29/17 23:29 Dose: Not Given Bisacodyl (Dulcolax) 10 mg [place] QDAY PRN PRN Reason: Constipation unrelieved by MOM Famotidine (Pepcid) 10 mg PO BID [facility] Last Admin: 07/29/17 23:26 Dose: 10 mg Furosemide (Lasix) 40 mg IV 0600,1800 [facility] Last Admin: 07/30/17 05:18 Dose: 40 mg Hydralazine HCl (Apresoline) 50 mg PO Q8HR [facility] Last Admin: 07/30/17 05:18 Dose: Not Given Clindamycin HCl (Cleocin 900 Mg/50 Ml) 900 mg in 50 mls @ 100 mls/hr IV Q8HR [facility]US PRN Reason: Protocol Last Admin: 07/30/17 05:18 Dose: 100 mls/hr Magnesium Hydroxide (Milk Of Magnesia) 30 ml PO Q4H PRN PRN Reason: Constipation Morphine Sulfate (Morphine) 4 mg IV Q4H PRN PRN Reason: Pain , Severe (7-10) Ondansetron HCl (Zofran) 4 mg IV Q8H PRN PRN Reason: N/V unrelieved by Reglan Oxycodone/Acetaminophen (Percocet 5/325) 1 tab PO Q6H PRN PRN Reason: Pain, Moderate (4-6) Tramadol HCl (Ultram) 50 mg PO Q6HR PRN PRN Reason: Pain Zolpidem Tartrate (Ambien) 5 mg PO QHS PRN PRN Reason: Insomnia Review of Systems ROS unobtainable: due to mental status Exam - Vital Signs Vital signs: Vital Signs Temp Pulse Resp BP Pulse Ox 99.3 F 79 21 121/51 90 07/29/17 07:54 07/29/17 07:54 07/29/17 07:54 07/29/17 07:54 07/29/17 07:54 - General Appearance General appearance: well-developed, well-nourished, appears stated age EENT: PERRL, mucous membranes moist Neck: Present: neck supple, trachea midline. Absent: JVD/HJR, Masses Respiratory: Decreased Breath Sounds (at the bases) Heart: regular, normal heart rate Gastrointestinal: Present: normal, normoactive bowel sounds Integumentary: other (2+ pitting edema) Results - Lab Results 07/30/17 08:29 07/30/17 08:29 Most recent lab results Calcium 8.3 mg/dL (8.4-10.2) L 07/30/17 08:29 Phosphorus 4.10 mg/dL (2.5-4.5) 07/29/17 07:28 Magnesium 2.50 mg/dL (1.7-2.3) H 07/29/17 07:28 Assessment and Plan Impression * Renal insufficiency. He probably has a component of chronic kidney disease * Congestive heart failure * Peripheral edema * Mild hyperkalemia * History of hypertension * History of gout * Elevated transaminases level * Microhematuria Recommendations * Patient's urine does show a few red cells but no significant dipstick protein. No need to consider ATN and other causes of acute kidney injury * Agree with renal ultrasound * Patient is clinically volume overloaded. Shall add intravenous diuretic * Would also recommend placing a Rodriguez catheter and monitor his intake and output closely * Avoid nephrotoxins * Vasculitis workup * Shall hold his JOSE ALEJANDRO inhibitor for now * Monitor patient's fluid status and electrolytes closely * Thank you very much for the consultation. Shall follow along with you
[2017-07-30] MEDS ORDERED: VANCOMYCIN 2,000 MG in NACL 0.9% 500 ML 500 ML IV SCH (11:15)
--- NOTE | 2017-07-30 12:14 | Cat Scan Report ---
CT HEAD WITHOUT CONTRAST: HISTORY: Altered mental status. TECHNIQUE: Sequential 2.5mm CT images. COMPARISON: none. FINDINGS: Cerebral Parenchyma: Within normal limits. Cerebellum: Within normal limits. Brainstem: Within normal limits. Ventricles: Normal. Sella: Normal. Extra-axial spaces: Normal. Basal Cisterns: Normal. Intracranial Hemorrhage: None. Midline Shift: None. Calvarium: Normal. Sinuses: Normal. Mastoid Air Cells: Normal. Visualized Orbits: Normal. IMPRESSION: Cranial CT scan within normal limits.
[2017-07-30 13:40] LABS: Calcium 8.4 mg/dL (8.4-10.2); Chloride 104.3 mmol/L (98-107); Potassium 5.1 mmol/L (3.6-5.0)
[2017-07-30] MEDS: ZAROXOLYN PO SCH (14:11)
[2017-07-30] MEDS: K-DUR PO SCH (23:56)
[2017-07-30] MEDS: ZESTRIL PO SCH (23:56)
[2017-07-30] MEDS: COLCRYS PO SCH (23:56)
[2017-07-31] MEDS: LASIX IV SCH (06:44)
[2017-07-31] MEDS: APRESOLINE PO SCH ×3 (06:45→21:33)
[2017-07-31] MEDS: THERMAZENE 50 GRAM TP SCH ×3 (06:45→23:06)
[2017-07-31 06:48] LABS: Calcium 8.2 mg/dL (8.4-10.2); Potassium 5.3 mmol/L (3.6-5.0)
[2017-07-31] MEDS: CLEOCIN 900 MG/50 mL 900 MG/50 ML BAG IV SCH (07:06)
--- NOTE | 2017-07-31 08:26 | Ultrasound Report ---
FINAL REPORT EXAM: US TESTICULAR DOPPLER COMP HISTORY: epiddymitis COMPARISONS: None FINDINGS: Grayscale, color and spectral Doppler ultrasound evaluation of the testicles The right testicle measures 3.5 x 2.1 x 2.4 cm and demonstrates normal echotexture and color and spectral Doppler evaluation. The epididymis is within normal limits with incidental 5 millimeter epididymal head cyst noted. No intra or extratesticular mass. The left testicle measures 3.6 x 2.2 x 2.6 cm and demonstrates normal echotexture and color and spectral Doppler evaluation. The epididymis demonstrates suggested hyperemia on color Doppler evaluation. Incidental 4 millimeter epididymal head cyst is noted. No intra or extratesticular mass. Bilateral hydroceles. No varicocele. Scrotal skin thickening and edema. IMPRESSION: Scrotal cellulitis with possible left epididymitis are suggested.
--- NOTE | 2017-07-31 08:40 | Ultrasound Report ---
FINAL REPORT EXAM: US RENAL BILAT HISTORY: PAO COMPARISONS: None. FINDINGS: Grayscale and color Doppler renal ultrasound The right kidney measures 11.2 cm and contains 12 millimeter interpolar simple appearing cyst. No abdominal ascites or free fluid in Morison's pouch. The left kidney measures 10.5 cm in length. No hydronephrosis or echogenic shadowing foci to suggest nephrolithiasis in either kidney. IMPRESSION: No hydronephrosis.
--- NOTE | 2017-07-31 10:03 | Progress Note ---
Assessment and Plan 1. 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 2. Chronic atrial fibrillation 3. Chronic kidney disease stage III 4. Essential hypertension 5. Obesity Plan. Patient has predominantly right-sided heart failure within normal LV ejection fraction of 50-55%. Cautious diuresis given possibility of worsening renal failure in the presence of excessive right ventricular pretibial reduction. We will consider adding dobutamine to improve right ventricular systolic ejection fraction Subjective Date of service: 07/31/17 Principal diagnosis: CHF Interval history: Patient resting did not wake him up. family member in the room. No complains as per nurse Objective Vital Signs Temp Pulse Resp BP BP Pulse Ox 07/31/17 07:00 50 L 07/31/17 05:24 55 L 98 07/31/17 05:23 97.6 F 61 20 113/53 97 07/31/17 02:51 98.7 F 56 L 20 120/56 91 07/31/17 01:35 63 95 07/30/17 22:00 18 07/30/17 21:31 95 07/30/17 20:47 64 95 07/30/17 18:36 98.1 F 61 20 112/56 94 07/30/17 17:00 98.1 F 20 L 20 112/56 07/30/17 16:10 188/79 99 07/30/17 16:00 188/79 07/30/17 14:13 66 128/68 07/30/17 11:00 72 121/70 - Physical Examination General: Appears Well, No Apparent Distress, Other (obese) HEENT: Positive: PERRL, Sinus Tenderness Neck: Positive: neck supple, trachea midline. Negative: JVD/HJR, Masses Cardiac: Positive: Regular Rate, S1/S2, Systolic Murmur, PMI, Dilated, Laterally Displaced Lungs: Positive: clear to auscultation, No Wheeze, Rales, Rhonchi Neuro: Positive: Grossly Intact Extremities: Present: +2 Edema - Labs and Meds Comprehensive Metabolic Panel 07/30/17 07/31/17 Range/Units 13:04 04:03 Sodium 140 138 (137-145) mmol/L Potassium 5.1 H 5.3 H (3.6-5.0) mmol/L Chloride 104.3 103.0 (98-107) mmol/L Carbon Dioxide 23 18 L (22-30) mmol/L BUN 91 H 91 H (9-20) mg/dL Creatinine 2.4 H 2.6 H (0.8-1.5) mg/dL Glucose 116 H 92 (75-100) mg/dL Calcium 8.4 8.2 L (8.4-10.2) mg/dL - Imaging and Cardiology EKG: report reviewed
[2017-07-31] MEDS: PEPCID PO SCH ×2 (10:31→21:33)
[2017-07-31] MEDS: ZAROXOLYN PO SCH (10:31)
[2017-07-31] MEDS: ZYLOPRIM PO SCH (10:31)
[2017-07-31] MEDS: NORVASC PO SCH (10:31)
[2017-07-31] MEDS ORDERED: KIONEX PO ONE (11:47)
[2017-07-31] MEDS ORDERED: HYDROMET PO PRN (12:10)
[2017-07-31] MEDS: DILAUDID IV PRN (12:25)
[2017-07-31] MEDS: DELTASONE PO SCH (12:26)
[2017-07-31] MEDS: ceFAZolin 1 GM in NACL 0.9% 20 ML IV SCH ×2 (13:20→21:33)
--- NOTE | 2017-07-31 14:00 | Progress Note ---
Assessment and Plan Impression * Renal insufficiency. He probably has a component of chronic kidney disease * Congestive heart failure * Peripheral edema * Mild hyperkalemia * History of hypertension * History of gout * Elevated transaminases level * Microhematuria Recommendations * Patient's urine does showed a few red cells but no significant dipstick protein. No need to consider ATN and other causes of acute kidney injury * renal ultrasound is essentially normal. No hydronephrosis * Patient is clinically volume overloaded. Continue intravenous loop diuretic * Shall check a bladder scan. If patient is retaining urine and not able to put a Rodriguez in, consider urology evaluation for coude catheter * Avoid nephrotoxins * Follow up results of Vasculitis workup * Continue to hold his JOSE ALEJANDRO inhibitor for now * Monitor patient's fluid status and electrolytes closely * If patient's renal function does not improve and/or if he has inadequate response to diuretics, would need to consider renal replacement therapy. * Discussed with patient's daughter at bedside Subjective Date of service: 07/31/17 Principal diagnosis: CHF Interval history: Patient is comfortable. Denies any shortness of breath. Nursing staff was unable to put a Rodriguez catheter in. Asked her to do a bedside bladder scan Objective - Vital Signs Vital signs: Vital Signs - 12hr 07/31/17 07/31/17 07/31/17 02:51 05:23 05:24 Temperature 98.7 F 97.6 F Pulse Rate 56 L 61 55 L Respiratory 20 20 Rate Blood Pressure 113/53 Blood Pressure 120/56 [Left] O2 Sat by Pulse 91 97 98 Oximetry 07/31/17 07/31/17 07/31/17 07:00 08:23 10:00 Temperature Pulse Rate 50 L 59 L Respiratory Rate Blood Pressure Blood Pressure [Left] O2 Sat by Pulse 96 94 Oximetry 07/31/17 07/31/17 07/31/17 10:31 11:10 12:37 Temperature 98.2 F Pulse Rate 60 65 60 Respiratory 18 Rate Blood Pressure 113/56 Blood Pressure 123/57 [Left] O2 Sat by Pulse 93 95 Oximetry 07/31/17 13:21 Temperature Pulse Rate 60 Respiratory Rate Blood Pressure 123/56 Blood Pressure [Left] O2 Sat by Pulse Oximetry - General Appearance General appearance: well-developed, well-nourished, appears stated age EENT: PERRL, mucous membranes moist Neck: no JVD, no thyromegaly, no carotid bruit, supple Respiratory: Present: Clear to Ascultation, Decreased Breath Sounds (at the bases) Cardiology: irregularly irregular Gastrointestinal: normal, normoactive bowel sounds Integumentary: other (1+ edema) - Lab 07/30/17 08:29 07/31/17 04:03 Most recent lab results Calcium 8.2 mg/dL (8.4-10.2) L 07/31/17 04:03 Phosphorus 4.10 mg/dL (2.5-4.5) 07/29/17 07:28 Magnesium 2.50 mg/dL (1.7-2.3) H 07/29/17 07:28
--- NOTE | 2017-07-31 16:32 | Progress Note ---
Assessment and Plan Assessment and plan: 82 y/o AAM Obese with PMH significant for HTN Gout and CHF comes in for increased weight of about 30 Lbs, Sob on minimal exertion and increasing swelling of both lower extremities He is more concerned with his left leg which has become red and painful over the last week. However he also complains of substantial edema to involve both lower extremities and his scrotum. He complains of shortness of breath on exertion and somewhat at rest. He has been taking Lasix and lisinopril. Also orthopnea present.No Chest pain or palpitations. Acute metabolic Encephlopathy- Resolved Head CT unremarkable Will monitor labs Nephrology consulted for PAO PAO- Vasomotor Nephrolopathy, Unknown baseline Renal US ordered Nephrology consulted Scrotal edema / epididymitis Scrotal support Testicular doppler Cellulitis of left leg Blood cultures taken Change ancef Gout Hold cochicine [place] of low dose steroids Acute exacerbation of CHF (congestive heart failure) Patient initiated on IV Lasix and Kcl Daily weights and Check Echo[place] [id number] Sharif catheter to measure urine output HTN (hypertension) Cont Hydralazine Anemia Check Iron b12 and folic acid Gout Allopurinol Hematuria * Traumatic with sharif placement, now stopped. Discussed with urology, will avoid sharif unless evidence of urinary retention * Bladder scan- Negative for urinary retention. DVT prophylaxis SCD History Interval history: Patient seen and examined, improving but still very edematus and still with pain in the left leg. Denies chest pain, nausea, vomiting, diarrhea. very poor urine output. Hospitalist Physical - Physical exam Narrative exam: General appearance: Present: mild distress, well-nourished, obese - EENT Eyes: Present: PERRL, EOM intact ENT: hearing intact, clear oral mucosa - Neck Neck: Present: supple, normal ROM - Respiratory Respiratory effort: normal Respiratory: bilateral: CTA - Cardiovascular Rhythm: regular Heart Sounds: Present: S1 & S2 - Extremities Extremities: no ischemia Extremity abnormal: edema (bilateral 2+ pitting) Peripheral Pulses: within normal limits - Abdominal General gastrointestinal: deferred - Integumentary Integumentary: Present: clear, warm, dry - Psychiatric Psychiatric: other - Neurologic Neurologic: moves all extremities - Allied Health Allied health notes reviewed: nursing - Constitutional Vitals: Temp Pulse Resp BP Pulse Ox 98.2 F 60 18 123/56 95 07/31/17 11:10 07/31/17 13:21 07/31/17 11:10 07/31/17 13:21 07/31/17 12:37 General appearance: Present: mild distress, well-nourished, obese Results - Labs CBC & Chem 7: 07/30/17 08:29 07/31/17 04:03 Labs: Laboratory Last Values WBC 6.8 K/mm3 (4.5-11.0) 07/30/17 08:29 RBC 3.36 M/mm3 (3.65-5.03) L 07/30/17 08:29 Hgb 9.9 gm/dl (11.8-15.2) L 07/30/17 08:29 Hct 31.6 % (35.5-45.6) L 07/30/17 08:29 MCV 94 fl (84-94) 07/30/17 08:29 MCH 29 pg (28-32) 07/30/17 08: MCHC 31 % (32-34) L 07/30/17 08:29 RDW 17.9 % (13.2-15.2) H 07/30/17 08:29 Plt Count 163 K/mm3 (140-440) 07/30/17 08:29 Lymph % (Auto) 4.3 % (13.4-35.0) L 07/30/17 08:29 [place] % (Auto) 9.3 % (0.0-7.3) H 07/30/17 08:29 Eos % (Auto) 1.0 % (0.0-4.3) 07/30/17 08: Baso % (Auto) 0.1 % (0.0-1.8) 07/30/17 08:29 Lymph # 0.3 K/mm3 (1.2-5.4) L 07/30/17 08:29 [place] # 0.6 K/mm3 (0.0-0.8) 07/30/17 08:29 Eos # 0.1 K/mm3 (0.0-0.4) 07/30/17 08:29 Baso # 0.0 K/mm3 (0.0-0.1) 07/30/17 08:29 Seg Neutrophils % 85.3 % (40.0-70.0) H 07/30/17 08:29 Seg Neutrophils # 5.8 K/mm3 (1.8-7.7) 07/30/17 08:29 PT 22.2 Sec. (12.2-14.9) H 07/29/17 07:28 INR 1.85 (0.87-1.13) H 07/29/17 07:28 D-Dimer 683.47 ng/mlDDU (0-234) H 07/29/17 07:28 POC ABG pH 7.276 (7.35-7.45) L 07/30/17 10:20 POC ABG pCO2 47.3 (35-45) H 07/30/17 10:20 POC ABG pO2 75 (80-105) L 07/30/17 10:20 POC ABG HCO3 22.0 07/30/17 10:20 POC ABG Total CO2 23 07/30/17 10:20 POC ABG O2 Sat 93 07/30/17 10:20 POC ABG Base Excess -5 07/30/17 10:20 FiO2 6 % 07/30/17 10:20 Sodium 138 mmol/L (137-145) 07/31/17 04:03 Potassium 5.3 mmol/L (3.6-5.0) H 07/31/17 04:03 Chloride 103.0 mmol/L (98-107) 07/31/17 04:03 Carbon Dioxide 18 mmol/L (22-30) L 07/31/17 04:03 Anion Gap 22 mmol/L 07/31/17 04:03 BUN 91 mg/dL (9-20) H 07/31/17 04:03 Creatinine 2.6 mg/dL (0.8-1.5) H 07/31/17 04:03 Estimated GFR 29 ml/min 07/31/17 04:03 BUN/Creatinine Ratio 35 % 07/31/17 04:03 Glucose 92 mg/dL (75-100) 07/31/17 04:03 Hemoglobin A1c 5.6 % (4-6) 07/29/17 Unknown Lactic Acid 1.50 mmol/L (0.7-2.0) 07/29/17 10:05 Calcium 8.2 mg/dL (8.4-10.2) L 07/31/17 04:03 Phosphorus 4.10 mg/dL (2.5-4.5) 07/29/17 07:28 Magnesium 2.50 mg/dL (1.7-2.3) H 07/29/17 07:28 Iron 25 ug/dL (49-181) L 07/30/17 08:29 TIBC 141 mcg/dL (250-450) L 07/30/17 08:29 % Saturation 17.73 % 07/30/17 08:29 Transferrin 133 mg/dl (180-329) L 07/30/17 08:29 Total Bilirubin 0.70 mg/dL (0.1-1.2) 07/30/17 08:29 AST 46 units/L (5-40) H 07/30/17 08:29 ALT 28 units/L (7-56) 07/30/17 08:29 Alkaline Phosphatase 134 units/L (35-129) H 07/30/17 08:29 Ammonia 32.0 umol/L (25-60) 07/30/17 13:04 Total Creatine Kinase 451 units/L (55-170) H 07/29/17 07:28 CK-MB (CK-2) 5.5 ng/mL (0.0-4.0) H 07/29/17 07:28 CK-MB (CK-2) Rel Index 1.2 (0-4) 07/29/17 07:28 Troponin T 0.083 ng/mL (0.00-0.029) H 07/30/17 18:24 NT-Pro-B Natriuret Pep 43347 pg/mL (0-900) H 07/29/17 07:28 Total Protein 7.8 g/dL (6.3-8.2) 07/30/17 08:29 Albumin 2.6 g/dL (3.9-5) L 07/30/17 08:29 Albumin/Globulin Ratio 0.5 % 07/30/17 08:29 Triglycerides 75 mg/dL (2-149) 07/29/17 07:28 Cholesterol 78 mg/dL (50-199) 07/29/17 07:28 LDL Cholesterol Direct 48 mg/dL (50-130) L 07/29/17 07:28 HDL Cholesterol 15 mg/dL (40-59) L 07/29/17 07:28 Cholesterol/HDL Ratio 5.20 % 07/29/17 07:28 Vitamin B12 > 2000 pg/mL (211-911) H 07/30/17 13:04 Urine Color Yellow (Yellow) 07/29/17 14:47 Urine Turbidity Clear (Clear) 07/29/17 14:47 Urine pH 5.0 (5.0-7.0) 07/29/17 14:47 Ur Specific [place] 1.013 (1.003-1.030) 07/29/17 14:47 Urine Protein <15 mg/dl mg/dL (Negative) 07/29/17 14:47 Urine Glucose (UA) Neg mg/dL (Negative) 07/29/17 14:47 Urine Ketones Neg mg/dL (Negative) 07/29/17 14:47 Urine Blood Mod (Negative) 07/29/17 14:47 Urine Nitrite Neg (Negative) 07/29/17 14:47 Urine Bilirubin Neg (Negative) 07/29/17 14:47 Urine Urobilinogen 2.0 mg/dL (<2.0) 07/29/17 14:47 Ur Leukocyte Esterase Neg (Negative) 07/29/17 14:47 Urine WBC (Auto) 2.0 /HPF (0.0-6.0) 07/29/17 14:47 Urine RBC (Auto) 6.0 /HPF (0.0-6.0) 07/29/17 14:47 U Epithel Cells (Auto) 1.0 /HPF (0-13.0) 07/29/17 14:47 Urine Bacteria (Auto) 1+ /HPF (Negative) 07/29/17 14:47 Urine Mucus Few /HPF 07/29/17 14:47 Hepatitis A IgM Ab Non-reactive (NonReactive) 07/30/17 13:04 Hep Bs Antigen Non-reactive (Negative) 07/30/17 13:04 Hep B Core IgM Ab Non-reactive (NonReactive) 07/30/17 13:04 Hepatitis C Antibody Non-reactive (NonReactive) 07/30/17 13:04
[2017-07-31] MEDS: BUMEX IV SCH (23:07)
[2017-08-01] MEDS: DILAUDID IV PRN ×4 (05:46→22:09)
[2017-08-01] MEDS: APRESOLINE PO SCH ×3 (05:46→22:09)
[2017-08-01] MEDS: BUMEX IV SCH (05:46)
[2017-08-01] MEDS: ceFAZolin 1 GM in NACL 0.9% 20 ML IV SCH (05:46)
[2017-08-01 08:02] LABS: Calcium 7.9 mg/dL (8.4-10.2); Chloride 101.8 mmol/L (98-107); Potassium 4.7 mmol/L (3.6-5.0)
[2017-08-01] MEDS: NORVASC PO SCH (10:07)
[2017-08-01] MEDS: PEPCID PO SCH ×2 (10:07→22:08)
[2017-08-01] MEDS: ZYLOPRIM PO SCH (10:07)
[2017-08-01] MEDS: ZAROXOLYN PO SCH (10:07)
[2017-08-01] MEDS: DELTASONE PO SCH (10:07)
[2017-08-01] MEDS: THERMAZENE 50 GRAM TP SCH ×2 (10:13→23:55)
--- NOTE | 2017-08-01 11:32 | Progress Note ---
Assessment and Plan 1. 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 2. Chronic atrial fibrillation 3. Chronic kidney disease stage III 4. Essential hypertension 5. Obesity Plan. Patient has predominantly right-sided heart failure within normal LV ejection fraction of 50-55%. Cautious diuresis given possibility of worsening renal failure in the presence of excessive right ventricular pretibial reduction. Subjective Date of service: 08/01/17 Principal diagnosis: CHF Interval history: Alert no cardiac complaints. Objective Vital Signs Temp Pulse Resp BP BP Pulse Ox 08/01/17 10:07 64 08/01/17 08:04 96 08/01/17 07:40 98.4 F 68 22 118/50 96 08/01/17 04:33 98.1 F 68 16 118/60 86 08/01/17 03:00 60 08/01/17 00:48 98.3 F 66 16 116/51 97 07/31/17 22:00 95 07/31/17 19:15 97.9 F 62 16 109/49 94 07/31/17 19:08 82 07/31/17 17:35 98.6 F 79 20 136/58 94 07/31/17 13:21 60 123/56 07/31/17 12:37 60 95 - Physical Examination General: Appears Well, No Apparent Distress, Other (obese) HEENT: Positive: PERRL, Sinus Tenderness Neck: Positive: neck supple, trachea midline. Negative: JVD/HJR, Masses Cardiac: Positive: Regular Rate, S1/S2, S3, PMI, Dilated, Laterally Displaced Lungs: Positive: clear to auscultation, No Wheeze, Rales, Rhonchi Neuro: Positive: Grossly Intact Abdomen: Positive: Unremarkable, Active Bowel Sounds Extremities: Present: +2 Edema - Labs and Meds Comprehensive Metabolic Panel 08/01/17 Range/Units 07:01 Sodium 139 (137-145) mmol/L Potassium 4.7 (3.6-5.0) mmol/L Chloride 101.8 (98-107) mmol/L Carbon Dioxide 23 (22-30) mmol/L BUN 103 H (9-20) mg/dL Creatinine 2.9 H (0.8-1.5) mg/dL Glucose 104 H (75-100) mg/dL Calcium 7.9 L (8.4-10.2) mg/dL - Imaging and Cardiology EKG: report reviewed
--- NOTE | 2017-08-01 12:12 | Progress Note ---
Assessment and Plan Impression * Renal insufficiency. He probably has a component of chronic kidney disease * Congestive heart failure * Peripheral edema * Mild hyperkalemia * History of hypertension * History of gout * Elevated transaminases level * Microhematuria Recommendations * Patient's urine does showed a few red cells but no significant dipstick protein. No need to consider ATN and other causes of acute kidney injury * renal ultrasound is essentially normal. No hydronephrosis * Patient is clinically volume overloaded. Continue intravenous loop diuretic * Bladder scan yesterday reported as showing only 8 mL of urine. Awaiting repeat bladder scan from today. Rodriguez catheter placement was unsuccessful by nursing staff. Apparently he had some bloody urine in his diaper * Avoid nephrotoxins * Follow up results of Vasculitis workup * Continue to hold his JOSE ALEJANDRO inhibitor for now * Patient is clinically volume overloaded and his mental status is not at baseline. Discussed at length with his 2 daughters and son at bedside. They' re agreeable with dialysis. * Spoke with Dr. Thacker regarding a PermCath placement in the morning. Shall keep him NPO from midnight. Shall initiate dialysis after access tomorrow Subjective Date of service: 08/01/17 Principal diagnosis: CHF Interval history: Patient is somewhat lethargic. Appears comfortable. Her 2 daughters and son all at bedside. Objective - Vital Signs Vital signs: Vital Signs - 12hr 08/01/17 08/01/17 08/01/17 00:48 03:00 04:33 Temperature 98.3 F 98.1 F Pulse Rate 66 60 68 Respiratory 16 16 Rate Blood Pressure 118/60 Blood Pressure 116/51 [Left] O2 Sat by Pulse 97 86 Oximetry 08/01/17 08/01/17 08/01/17 07:40 08:04 10:07 Temperature 98.4 F Pulse Rate 68 64 Respiratory 22 Rate Blood Pressure 118/50 Blood Pressure [Left] O2 Sat by Pulse 96 96 Oximetry - General Appearance General appearance: well-developed, well-nourished, appears stated age EENT: PERRL, mucous membranes moist Neck: no JVD, no thyromegaly, no carotid bruit, supple Respiratory: Present: Decreased Breath Sounds (at the bases) Cardiology: regular, normal heart rate, S1S2, no murmurs Gastrointestinal: normal, normoactive bowel sounds Integumentary: other (2+ edema) - Lab 07/30/17 08:29 12/03/17 07:01 Most recent lab results Calcium 7.9 mg/dL (8.4-10.2) L 08/01/17 07:01 Phosphorus 4.10 mg/dL (2.5-4.5) 07/29/17 07:28 Magnesium 2.50 mg/dL (1.7-2.3) H 07/29/17 07:28
[2017-08-01] MEDS ORDERED: NACL 0.9% 100 ML IV PRN (12:14)
--- NOTE | 2017-08-01 17:31 | Progress Note ---
Assessment and Plan - Patient Problems (1) Cellulitis of left leg Current Visit: Yes Status: Acute Plan to address problem: Patient started on Clindamycin for possible Staph cellulitis (2) CKD (chronic kidney disease) Current Visit: Yes Status: Acute Qualifiers: Chronic kidney disease stage: stage 5, not on chronic dialysis Qualified Code(s): N18.5 - Chronic kidney disease, stage 5 Plan to address problem: For vascath tomorrow (3) Acute exacerbation of CHF (congestive heart failure) Current Visit: Yes Status: Acute Qualifiers: Congestive heart failure type: combined Qualified Code(s): I50.43 - Acute on chronic combined systolic (congestive) and diastolic (congestive) heart failure Plan to address problem: Patient initiated on IV lAsix and Kcl Daily weights and Check Echo.[place] [id number] (4) HTN (hypertension) Current Visit: Yes Status: Chronic Qualifiers: Hypertension type: essential hypertension Qualified Code(s): I10 - Essential (primary) hypertension Plan to address problem: Cont Hydralazine (5) Morbid obesity with BMI of 50.0-59.9, adult Current Visit: Yes Status: Chronic Plan to address problem: Counseled about weight loss requirements (6) Anemia Current Visit: Yes Status: Chronic Qualifiers: Anemia type: iron deficiency Plan to address problem: Check Iron b12 and folic acid (7) DVT prophylaxis Current Visit: Yes Status: Acute Plan to address problem: On lovenox Subjective Date of service: 08/01/17 Principal diagnosis: CHF cellulitis LLE Interval history: Improving Objective - Exam Narrative Exam: In slight distress - Constitutional Vitals: Vital Signs - 12hr 08/01/17 08/01/17 08/01/17 07:40 08:04 10:07 Temperature 98.4 F Pulse Rate 68 64 Respiratory 22 Rate Blood Pressure 118/50 Blood Pressure [Right] O2 Sat by Pulse 96 96 Oximetry 08/01/17 08/01/17 12:39 15:54 Temperature 97.7 F Pulse Rate 61 Respiratory 22 Rate Blood Pressure 94/60 Blood Pressure 98/40 [Right] O2 Sat by Pulse 94 Oximetry General appearance: Present: no acute distress, well-nourished - EENT Eyes: PERRL, EOM intact ENT: hearing intact, clear oral mucosa Ears: bilateral: normal - Neck Neck: supple, normal ROM - Respiratory Respiratory effort: normal Respiratory: bilateral: CTA - Breasts Breasts: normal - Cardiovascular Rhythm: regular Heart Sounds: Present: S1 & S2. Absent: gallop, rub Extremities: pulses intact, No edema, normal color, Full ROM Extremity abnormal: edema (Improved), erythema (Improved) - Gastrointestinal General gastrointestinal: Present: soft, non-tender, non-distended, normal bowel sounds - Genitourinary Male genitourinary: normal - Integumentary Integumentary: clear, warm, dry - Musculoskeletal Musculoskeletal: 1, strength equal bilaterally - Neurologic Neurologic: moves all extremities - Psychiatric Psychiatric: memory intact, appropriate mood/affect, intact judgment & insight - Labs CBC & Chem 7: 07/30/17 08:29 08/02/17 04:58 Labs: Abnormal lab results 08/01/17 Range/Units 07:01 BUN 103 H (9-20) mg/dL Creatinine 2.9 H (0.8-1.5) mg/dL Glucose 104 H (75-100) mg/dL Calcium 7.9 L (8.4-10.2) mg/dL
[2017-08-01] MEDS ORDERED: ceFAZolin 1 GM in NACL 0.9% 20 ML IV SCH (22:00)
[2017-08-02] MEDS: DILAUDID IV PRN ×3 (02:43→20:37)
[2017-08-02] MEDS: BUMEX IV SCH (06:00)
[2017-08-02] MEDS: APRESOLINE PO SCH ×3 (06:01→21:00)
[2017-08-02 06:06] LABS: Calcium 8.3 mg/dL (8.4-10.2); Chloride 101.7 mmol/L (98-107)
[2017-08-02 06:10] LABS: Potassium 5.7 mmol/L (3.6-5.0)
[2017-08-02] MEDS ORDERED: HEPARIN/NS 5000 UNIT/500ML(CATH LAB) 500 ML IR ONE (08:42)
[2017-08-02] MEDS ORDERED: XYLOCAINE 1%/ EPI 1:100,000 INFILTRATI ONE (08:42)
[2017-08-02] MEDS ORDERED: ANCEF/STERILE WATER 2 GM/20 ML 2 GM/20 ML SYRINGE IV ONE (08:42)
[2017-08-02] MEDS ORDERED: HEPARIN 10,000 UNITS/10 ML ONE (08:42)
[2017-08-02] MEDS ORDERED: NACL 0.9% 50 ML ONE (08:42)
[2017-08-02] MEDS: PEPCID PO SCH ×3 (09:00→22:00)
[2017-08-02] MEDS: ZYLOPRIM PO SCH (09:00)
[2017-08-02] MEDS: ZAROXOLYN PO SCH (09:00)
[2017-08-02] MEDS: DELTASONE PO SCH (09:00)
[2017-08-02] MEDS: NORVASC PO SCH (09:00)
--- NOTE | 2017-08-02 09:03 | Operative Report ---
Operative Report Operative Report: EXAM: ULTRASOUND AND FLUOROSCOPIC GUIDED PLACEMENT OF TUNNELED HEMODIALYSIS CATHETER CLINICAL INDICATION: PATIENT WITH A HISTORY OF END-STAGE RENAL DISEASE REQUIRING DIALYSIS ACCESS DATE: 08/02/2017 PROCEDURE: Following an explanation of the risks, benefits and alternatives; written informed consent was obtained. The patient was brought to the indirect suite and placed in supine position on the examination table. Initial ultrasound evaluation of the neck demonstrated a patent right internal jugular vein. The right neck and chest wall were prepped and draped in usual sterile fashion. 1% lidocaine was used for anesthesia. Under ultrasound guidance, the right internal jugular vein was cannulated with a 7 cm 18-gauge needle. A 0.035 guidewire was advanced into the IVC under fluoroscopy to document intravenous positioning. The needle was removed. Catheter exit site was chosen along the lateral right chest wall. 1% lidocaine was used for anesthesia at the catheter exit site along the tunnel tract. A part 23 cm glide past tunneled hemodialysis catheter was then tunneled antegrade from the catheter exit site to the being on any site. Following serial dilation over the guidewire under fluoroscopy, a 16 [place] peel -away sheath was placed over the guidewire under fluoroscopy and advanced to the proximal right atrium. The guidewire and trocar were removed. The cath was placed through the peel-away sheath in the peel-away sheath removed. The catheter tip was in position in the proximal right atrium. Both ports flushed and aspirated easily and were then locked with appropriate volumes of heparin. The venotomy was closed using 4-0 Vicryl suture and Dermabond. Dermabond was also applied to the catheter exit site. Sterile dressings were then applied. The patient tolerated the procedure well. There were no immediate post procedure complications. Conscious sedation was performed under the guidance of radiologic nursing. Continuous cardiopulmonary monitoring was utilized. IMPRESSION: 1) Ultrasound and fluoroscopic guided placement of tunneled hemodialysis catheter via the right internal jugular vein.
--- NOTE | 2017-08-02 10:05 | Progress Note ---
Assessment and Plan Assessment and plan: 82 y/o AAM Obese with PMH significant for HTN Gout and CHF comes in for increased weight of about 30 Lbs, Sob on minimal exertion and increasing swelling of both lower extremities He is more concerned with his left leg which has become red and painful over the last week. However he also complains of substantial edema to involve both lower extremities and his scrotum. He complains of shortness of breath on exertion and somewhat at rest. He has been taking Lasix and lisinopril.Also orthopnea present.No Chest pain or palpitations. CKD Renal US revealed no hydronephrosis HD initiated today Nephrology following Scrotal edema / epididymitis Scrotal support Testicular doppler Cellulitis of left leg Blood cultures taken Pt on cefazolin Acute exacerbation of CHF (congestive heart failure) Patient initiated on IV Lssix and Kcl Daily weights and Check Echo showed EF of 50-55 Rodriguez catheter to measure urine output HTN (hypertension) Cont Hydralazine Anemia Check Iron b12 and folic acid Gout Allopurinol DVT prophylaxis SCD History Interval history: Patient receiving HD. Still mildly sedated from cath placement Hospitalist Physical - Constitutional Vitals: Temp Pulse Resp BP Pulse Ox 97.4 F L 65 18 126/63 93 08/02/17 09:16 08/02/17 09:31 08/02/17 09:31 08/02/17 09:31 08/02/17 09:31 General appearance: Present: no acute distress, well-nourished - EENT Eyes: Present: PERRL, EOM intact ENT: hearing intact, clear oral mucosa - Neck Neck: Present: supple, normal ROM - Respiratory Respiratory effort: normal Respiratory: bilateral: CTA - Cardiovascular Rhythm: regular Heart Sounds: Present: S1 & S2 - Extremities Extremities: no ischemia Extremity abnormal: edema Peripheral Pulses: within normal limits - Abdominal General gastrointestinal: soft, non-tender - Integumentary Integumentary: Present: clear, warm, dry - Psychiatric Psychiatric: other (mildly sedated unable to evaluate) - Neurologic Neurologic: CNII-XII intact, moves all extremities - Allied Health Allied health notes reviewed: nursing Results - Labs CBC & Chem 7: 07/30/17 08:29 08/02/17 04:58 Labs: Laboratory Last Values WBC 6.8 K/mm3 (4.5-11.0) 07/30/17 08:29 RBC 3.36 M/mm3 (3.65-5.03) L 07/30/17 08:29 Hgb 9.9 gm/dl (11.8-15.2) L 07/30/17 08: Hct 31.6 % (35.5-45.6) L 07/30/17 08: MCV 94 fl (84-94) 07/30/17 08: MCH 29 pg (28-32) 07/30/17 08: MCHC 31 % (32-34) L 07/30/17 08: RDW 17.9 % (13.2-15.2) H 07/30/17 08:29 Plt Count 163 K/mm3 (140-440) 07/30/17 08: Lymph % (Auto) 4.3 % (13.4-35.0) L 07/30/17 08: [place] % (Auto) 9.3 % (0.0-7.3) H 07/30/17 08: Eos % (Auto) 1.0 % (0.0-4.3) 07/30/17 08:29 Baso % (Auto) 0.1 % (0.0-1.8) 07/30/17 08: Lymph # 0.3 K/mm3 (1.2-5.4) L 07/30/17 08: [place] # 0.6 K/mm3 (0.0-0.8) 07/30/17 08: Eos # 0.1 K/mm3 (0.0-0.4) 07/30/17 08: Baso # 0.0 K/mm3 (0.0-0.1) 07/30/17 08:29 Seg Neutrophils % 85.3 % (40.0-70.0) H 07/30/17 08:29 Seg Neutrophils # 5.8 K/mm3 (1.8-7.7) 07/30/17 08: PT 22.2 Sec. (12.2-14.9) H 07/29/17 07:28 INR 1.85 (0.87-1.13) H 07/29/17 07:28 D-Dimer 683.47 ng/mlDDU (0-234) H 07/29/17 07:28 POC ABG pH 7.276 (7.35-7.45) L 07/30/17 10:20 POC ABG pCO2 47.3 (35-45) H 07/30/17 10:20 POC ABG pO2 75 (80-105) L 07/30/17 10:20 POC ABG HCO3 22.0 07/30/17 10:20 POC ABG Total CO2 23 07/30/17 10:20 POC ABG O2 Sat 93 07/30/17 10:20 POC ABG Base Excess -5 07/30/17 10:20 FiO2 6 % 07/30/17 10:20 Sodium 138 mmol/L (137-145) 08/02/17 04:58 Potassium 5.7 mmol/L (3.6-5.0) H D 08/02/17 04:58 Chloride 101.7 mmol/L (98-107) 08/02/17 04:58 Carbon Dioxide 21 mmol/L (22-30) L 08/02/17 04:58 Anion Gap 21 mmol/L 08/02/17 04:58 BUN 99 mg/dL (9-20) H 08/02/17 04:58 Creatinine 2.7 mg/dL (0.8-1.5) H 08/02/17 04:58 Estimated GFR 28 ml/min 08/02/17 04:58 BUN/Creatinine Ratio 37 % 08/02/17 04:58 Glucose 100 mg/dL (75-100) 08/02/17 04:58 Hemoglobin A1c 5.6 % (4-6) 07/29/17 Unknown Lactic Acid 1.50 mmol/L (0.7-2.0) 07/29/17 10:05 Calcium 8.3 mg/dL (8.4-10.2) L 08/02/17 04:58 Phosphorus 4.10 mg/dL (2.5-4.5) 07/29/17 07:28 Magnesium 2.50 mg/dL (1.7-2.3) H 07/29/17 07:28 Iron 25 ug/dL (49-181) L 07/30/17 08:29 TIBC 141 mcg/dL (250-450) L 07/30/17 08:29 % Saturation 17.73 % 07/30/17 08:29 Transferrin 133 mg/dl (180-329) L 07/30/17 08:29 Total Bilirubin 0.70 mg/dL (0.1-1.2) 07/30/17 08:29 AST 46 units/L (5-40) H 07/30/17 08:29 ALT 28 units/L (7-56) 07/30/17 08:29 Alkaline Phosphatase 134 units/L (35-129) H 07/30/17 08:29 Ammonia 32.0 umol/L (25-60) 07/30/17 13:04 Total Creatine Kinase 451 units/L (55-170) H 07/29/17 07:28 CK-MB (CK-2) 5.5 ng/mL (0.0-4.0) H 07/29/17 07:28 CK-MB (CK-2) Rel Index 1.2 (0-4) 07/29/17 07:28 Troponin T 0.083 ng/mL (0.00-0.029) H 07/30/17 18:24 NT-Pro-B Natriuret Pep 72380 pg/mL (0-900) H 07/29/17 07:28 Total Protein 7.8 g/dL (6.3-8.2) 07/30/17 08:29 Albumin 2.6 g/dL (3.9-5) L 07/30/17 08:29 Albumin/Globulin Ratio 0.5 % 07/30/17 08:29 Triglycerides 75 mg/dL (2-149) 07/29/17 07:28 Cholesterol 78 mg/dL (50-199) 07/29/17 07:28 LDL Cholesterol Direct 48 mg/dL (50-130) L 07/29/17 07:28 HDL Cholesterol 15 mg/dL (40-59) L 07/29/17 07:28 Cholesterol/HDL Ratio 5.20 % 07/29/17 07:28 Vitamin B12 > 2000 pg/mL (211-911) H 07/30/17 13:04 Urine Color Yellow (Yellow) 07/29/17 14:47 Urine Turbidity Clear (Clear) 07/29/17 14:47 Urine pH 5.0 (5.0-7.0) 07/29/17 14:47 Ur Specific [place] 1.013 (1.003-1.030) 07/29/17 14:47 Urine Protein <15 mg/dl mg/dL (Negative) 07/29/17 14:47 Urine Glucose (UA) Neg mg/dL (Negative) 07/29/17 14:47 Urine Ketones Neg mg/dL (Negative) 07/29/17 14:47 Urine Blood Mod (Negative) 07/29/17 14:47 Urine Nitrite Neg (Negative) 07/29/17 14:47 Urine Bilirubin Neg (Negative) 07/29/17 14:47 Urine Urobilinogen 2.0 mg/dL (<2.0) 07/29/17 14:47 Ur Leukocyte Esterase Neg (Negative) 07/29/17 14:47 Urine WBC (Auto) 2.0 /HPF (0.0-6.0) 07/29/17 14:47 Urine RBC (Auto) 6.0 /HPF (0.0-6.0) 07/29/17 14:47 U Epithel Cells (Auto) 1.0 /HPF (0-13.0) 07/29/17 14:47 Urine Bacteria (Auto) 1+ /HPF (Negative) 07/29/17 14:47 Urine Mucus Few /HPF 07/29/17 14:47 Hepatitis A IgM Ab Non-reactive (NonReactive) 07/30/17 13:04 Hep Bs Antigen Non-reactive (Negative) 07/30/17 13:04 Hep B Core IgM Ab Non-reactive (NonReactive) 07/30/17 13:04 Hepatitis C Antibody Non-reactive (NonReactive) 07/30/17 13:04 - Imaging and Cardiology Imaging and Cardiology: Permcath placed for HD
--- NOTE | 2017-08-02 10:09 | Progress Note ---
Assessment and Plan Impression * Acute Renal insufficiency on chronic kidney disease * Congestive heart failure * Peripheral edema * Mild hyperkalemia * History of hypertension * History of gout * Elevated transaminases level * Microhematuria Recommendations * Patient's urine does showed a few red cells but no significant dipstick protein. need to consider ATN and other causes of acute kidney injury * renal ultrasound is essentially normal. No hydronephrosis * Patient is clinically volume overloaded. Continue intravenous loop diuretic * Bladder scan yesterday reported as showing only 8 mL of urine. Awaiting repeat bladder scan from today. Rodriguez catheter placement was unsuccessful by nursing staff. Apparently he had some bloody urine in his diaper * Avoid nephrotoxins * Follow up results of Vasculitis workup * Continue to hold his JOSE ALEJANDRO inhibitor for now * Patient is clinically volume overloaded and his mental status is not at baseline. Discussed at length with his 2 daughters and son at bedside. They' re agreeable with dialysis. * s/p PermCath placement in the morning. Shall initiate dialysis after access tomorrow Subjective Date of service: 08/02/17 Principal diagnosis: CHF cellulitis LLE Interval history: Patient is somewhat lethargic. Appears comfortable. Objective - Exam Narrative Exam: General appearance: well-developed, well-nourished, appears stated age EENT: PERRL, mucous membranes moist Neck: no JVD, no thyromegaly, no carotid bruit, supple Respiratory: Present: Decreased Breath Sounds (at the bases) Cardiology: regular, normal heart rate, S1S2, no murmurs Gastrointestinal: normal, normoactive bowel sounds Integumentary: other (2+ edema) - Vital Signs Vital signs: Vital Signs - 12hr 08/01/17 08/01/17 08/02/17 22:09 23:00 04:43 Temperature 98.1 F Pulse Rate 58 L 58 L Respiratory 18 Rate Blood Pressure 117/58 156/58 O2 Sat by Pulse Oximetry 08/02/17 08/02/17 09:16 09:31 Temperature 97.4 F L Pulse Rate 64 65 Respiratory 18 18 Rate Blood Pressure 148/56 126/63 O2 Sat by Pulse 93 93 Oximetry - Lab 07/30/17 08:29 08/02/17 04:58 Most recent lab results Calcium 8.3 mg/dL (8.4-10.2) L 08/02/17 04:58 Phosphorus 4.10 mg/dL (2.5-4.5) 07/29/17 07:28 Magnesium 2.50 mg/dL (1.7-2.3) H 07/29/17 07:28
[2017-08-02] MEDS ORDERED: KIONEX PO NR (10:30)
[2017-08-02] MEDS: THERMAZENE 50 GRAM TP SCH ×3 (10:35→22:00)
[2017-08-02] MEDS ORDERED: NACL 0.9 (PRIMING MACHINE ONLY DIALYSIS) MC ONE (11:24)
--- NOTE | 2017-08-02 13:52 | Progress Note ---
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 Subjective Date of service: 08/02/17 Principal diagnosis: CHF cellulitis LLE Interval history: No cardiac issues. Initiated on dialysis. Objective Vital Signs Temp Pulse Resp BP Pulse Ox 08/02/17 12:00 66 130/58 08/02/17 11:45 63 131/50 08/02/17 11:30 66 138/60 08/02/17 11:15 30 L 130/58 08/02/17 11:00 63 135/60 08/02/17 10:45 62 138/67 08/02/17 10:30 65 139/63 08/02/17 10:15 51 L 132/60 08/02/17 10:00 64 124/66 08/02/17 09:45 98.1 F 63 20 143/72 08/02/17 09:31 65 18 126/63 93 08/02/17 09:16 97.4 F L 64 18 148/56 93 08/02/17 04:43 98.1 F 18 156/58 08/01/17 23:00 58 L 08/01/17 22:09 58 L 117/58 08/01/17 22:05 18 08/01/17 20:23 98.8 F 58 L 18 117/56 94 08/01/17 19:40 97.8 F 58 L 23 121/56 89 08/01/17 15:54 94/60 - Physical Examination General: No Apparent Distress, Other (obese) HEENT: Positive: PERRL Cardiac: Positive: irregularly irregular Neuro: Positive: Grossly Intact - Labs and Meds Comprehensive Metabolic Panel 08/02/17 Range/Units 04:58 Sodium 138 (137-145) mmol/L Potassium 5.7 H D (3.6-5.0) mmol/L Chloride 101.7 (98-107) mmol/L Carbon Dioxide 21 L (22-30) mmol/L BUN 99 H (9-20) mg/dL Creatinine 2.7 H (0.8-1.5) mg/dL Glucose 100 (75-100) mg/dL Calcium 8.3 L (8.4-10.2) mg/dL - Imaging and Cardiology EKG: report reviewed
[2017-08-02] MEDS: ceFAZolin 1 GM in NACL 0.9% 20 ML IV SCH (14:15)
[2017-08-03] MEDS: DILAUDID IV PRN (02:32)
[2017-08-03 05:36] LABS: Calcium 8.3 mg/dL (8.4-10.2); Chloride 101.2 mmol/L (98-107); Potassium 4.5 mmol/L (3.6-5.0)
[2017-08-03] MEDS: APRESOLINE PO SCH ×3 (06:43→22:55)
[2017-08-03] MEDS: BUMEX IV SCH ×2 (06:43→18:30)
--- NOTE | 2017-08-03 08:42 | Progress Note ---
Assessment and Plan Impression * Acute Renal insufficiency on chronic kidney disease * Congestive heart failure * Peripheral edema * Mild hyperkalemia * History of hypertension * History of gout * Elevated transaminases level * Microhematuria Recommendations * HD daily for now for volume control * monitor mental status--may have some degree of uremia * uf as tolerated * daily lytes * Patient's urine does showed a few red cells but no significant dipstick protein. need to consider ATN and other causes of acute kidney injury * renal ultrasound is essentially normal. No hydronephrosis * Patient is clinically volume overloaded. Continue intravenous loop diuretic * Avoid nephrotoxins * Follow up results of Vasculitis workup * Continue to hold his JOSE ALEJANDRO inhibitor for now * urology to see for retension and scrotal wound and cellulitis * pt to eval and treat Subjective Date of service: 08/03/17 Principal diagnosis: CHF cellulitis LLE Interval history: Patient is somewhat lethargic. Appears comfortable. Objective - Exam Narrative Exam: General appearance: well-developed, well-nourished, appears stated age EENT: PERRL, mucous membranes moist Neck: no JVD, no thyromegaly, no carotid bruit, supple Respiratory: Present: Decreased Breath Sounds (at the bases) Cardiology: regular, normal heart rate, S1S2, no murmurs Gastrointestinal: normal, normoactive bowel sounds Integumentary: other (2+ edema) - Vital Signs Vital signs: Vital Signs - 12hr 08/02/17 08/02/17 08/02/17 21:01 22:00 23:00 Temperature Pulse Rate 66 Respiratory 20 Rate Blood Pressure O2 Sat by Pulse 97 Oximetry 08/03/17 08/03/17 04:04 06:43 Temperature 97.6 F Pulse Rate Respiratory 20 Rate Blood Pressure 132/51 132/51 O2 Sat by Pulse Oximetry - Lab 07/30/17 08:29 08/03/17 04:42 Most recent lab results Calcium 8.3 mg/dL (8.4-10.2) L 08/03/17 04:42 Phosphorus 4.10 mg/dL (2.5-4.5) 07/29/17 07:28 Magnesium 2.50 mg/dL (1.7-2.3) H 07/29/17 07:28
[2017-08-03] MEDS: PEPCID PO SCH ×3 (08:56→22:55)
[2017-08-03] MEDS: ZAROXOLYN PO SCH ×2 (08:56→10:00)
[2017-08-03] MEDS: DELTASONE PO SCH ×2 (08:57→10:00)
[2017-08-03] MEDS: NORVASC PO SCH ×2 (08:57→10:00)
[2017-08-03] MEDS: ZYLOPRIM PO SCH ×2 (08:58→10:00)
[2017-08-03] MEDS: THERMAZENE 50 GRAM TP SCH ×2 (09:03→22:55)
--- NOTE | 2017-08-03 09:45 | Progress Note ---
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 [facility] 2016: no significant CAD with preserved LV systolic function. Plan: It's presumed the patient is taking warfarin for his chronic atrial fibrillation as his INR was 1.85 on presentation. We will therefore, resume warfarin at 2.5mg daily. Subjective Date of service: 08/03/17 Principal diagnosis: CHF cellulitis LLE Interval history: Patient has no complaints. Objective Vital Signs Temp Pulse Resp BP Pulse Ox 08/03/17 08:57 66 156/62 08/03/17 08:52 96 08/03/17 08:46 98.3 F 66 20 156/62 82 L 08/03/17 06:43 132/51 08/03/17 04:04 97.6 F 20 132/51 08/02/17 23:00 66 08/02/17 22:00 20 08/02/17 21:01 97 08/02/17 20:17 98.6 F 66 20 142/69 90 08/02/17 15:40 20 08/02/17 15:10 20 08/02/17 14:35 98.3 F 62 18 146/66 94 08/02/17 13:45 65 134/65 08/02/17 13:00 98.1 F 90 20 126/54 08/02/17 12:30 59 L 129/50 08/02/17 12:15 64 139/55 08/02/17 12:00 66 130/58 08/02/17 11:45 63 131/50 08/02/17 11:30 66 138/60 08/02/17 11:15 30 L 130/58 08/02/17 11:00 63 135/60 08/02/17 10:45 62 138/67 08/02/17 10:30 65 139/63 08/02/17 10:15 51 L 132/60 08/02/17 10:00 64 124/66 08/02/17 09:45 98.1 F 63 20 143/72 - Physical Examination General: No Apparent Distress, Other (obese) HEENT: Positive: PERRL Cardiac: Positive: irregularly irregular Neuro: Positive: Grossly Intact Extremities: Present: +2 Edema - Labs and Meds Comprehensive Metabolic Panel 08/03/17 Range/Units 04:42 Sodium 140 (137-145) mmol/L Potassium 4.5 D (3.6-5.0) mmol/L Chloride 101.2 (98-107) mmol/L Carbon Dioxide 25 (22-30) mmol/L BUN 58 H (9-20) mg/dL Creatinine 1.8 H (0.8-1.5) mg/dL Glucose 105 H (75-100) mg/dL Calcium 8.3 L (8.4-10.2) mg/dL - Imaging and Cardiology EKG: report reviewed
--- NOTE | 2017-08-03 11:06 | Vascular Lab Report ---
MISCELLANEOUS VESSEL IDENTIFICATION: COMMENTS ON THE SCAN: The right internal jugular vein was identified and under real-time ultrasound guidance was cannulated. IMPRESSION: Successful ultrasound guided vein cannulation.
[2017-08-03] MEDS ORDERED: NACL 0.9% 100 ML IV PRN (11:44)
[2017-08-03] MEDS ORDERED: HEPARIN IV PRN (11:44)
--- NOTE | 2017-08-03 12:23 | Consultation ---
History of Present Illness - Reason for Consult Consult date: 08/03/17 - History of Present Illness CC - scrotal swelling 82 y/o AAM Obese with PMH significant for Htn Gout and CHF comes in for increased weight of about 30 Lbs, Sob on minimal exertion and increasing swelling of both lower extremities He is more concerned with his left leg which has become red and painful over the last week. However he also complains of substantial edema to involve both lower extremities and his scrotum. He complains of shortness of breath on exertion and somewhat at rest. He has been taking Lasix and lisinopril.Also orthopnea present.No Chest pain or palpitations. renal us (07-30-17) normal scrotal us )07-30-17) - cellulitis with possible epididymitis exam condom cath scrotal skin slightly irritated A/p Scrotal edema continue ancef & silvadene cream Past History Past Medical History: heart failure, hypertension Social history: lives with family, full code. denies: smoking, alcohol abuse Family history: hypertension Medications and Allergies Allergies Allergy/AdvReac Type Severity Reaction Status Date / Time No Known Allergies Allergy Verified 02/24/16 11:14 Home Medications Medication Instructions Recorded Confirmed Last Taken Type Allopurinol 300 mg PO DAILY 02/24/16 07/29/17 07/28/17 History Colchicine 0.6 mg PO DAILY 02/24/16 07/29/17 07/28/17 History Furosemide 20 mg PO DAILY 02/24/16 07/29/17 07/28/17 History Hydralazine HCl [Apresoline TAB] 50 mg PO DAILY 02/24/16 07/29/17 07/28/17 History Lisinopril 20 mg PO DAILY 02/24/16 07/29/17 07/28/17 History Amlodipine Besylate [Norvasc] 10 mg PO QDAY 07/29/17 07/29/17 07/28/17 History traMADol [Ultram] 50 mg PO Q6HR PRN 07/29/17 07/29/17 Unknown History Active Meds: Active Medications Acetaminophen (Tylenol) 650 mg PO Q4H PRN PRN Reason: Pain MILD(1-3)/Fever >100.5/MANCIA Allopurinol (Zyloprim) 100 mg PO QDAY [facility] Last Admin: 08/03/17 08:58 Dose: 100 mg Amlodipine Besylate (Norvasc) 10 mg PO QDAY [facility] Last Admin: 08/03/17 08:57 Dose: 10 mg Bisacodyl (Dulcolax) 10 mg [place] QDAY PRN PRN Reason: Constipation unrelieved by MOM Bumetanide (Bumex) 1 mg IV BID@0600,1800 [facility] Last Admin: 08/03/17 06:43 Dose: 1 mg Famotidine (Pepcid) 10 mg PO BID [facility] Last Admin: 08/03/17 08:56 Dose: 10 mg Heparin Sodium (Porcine) (Heparin) 5,000 unit IV MOE PRN PRN Reason: hemodialysis Hydralazine HCl (Apresoline) 50 mg PO Q8HR [facility] Last Admin: 08/03/17 06:43 Dose: Not Given Hydrocodone Bit/Homatropine Methylb (Hydromet) 10 ml PO Q6H PRN PRN Reason: Cough Hydromorphone HCl (Dilaudid) 1 mg IV Q4H PRN PRN Reason: Pain , Severe (7-10) Last Admin: 08/03/17 02:32 Dose: 1 mg Sodium Chloride (Nacl 0.9%) 100 mls @ 999 mls/hr IV MOE PRN PRN Reason: Hypotension Cefazolin Sodium 1 gm/ Sodium (Chloride) 20 mls @ 20 mls/10 min IV Q24HR [facility] PRN Reason: Protocol Last Admin: 08/02/17 14:15 Dose: Not Given Sodium Chloride (Nacl 0.9%) 100 mls @ 999 mls/hr IV MOE PRN PRN Reason: Hypotension Metolazone (Zaroxolyn) 2.5 mg PO QDAY [facility] Last Admin: 08/03/17 08:56 Dose: 2.5 mg Ondansetron HCl (Zofran) 4 mg IV Q8H PRN PRN Reason: N/V unrelieved by Reglan Oxycodone/Acetaminophen (Percocet 5/325) 1 tab PO Q6H PRN PRN Reason: Pain, Moderate (4-6) Prednisone (Deltasone) 10 mg PO QDAY [facility] Last Admin: 08/03/17 08:57 Dose: 10 mg Silver Sulfadiazine (Thermazene 50 Gram) 1 applic TP BID [facility] Last Admin: 08/03/17 09:03 Dose: 1 applic Tramadol HCl (Ultram) 50 mg PO Q6HR PRN PRN Reason: Pain Zolpidem Tartrate (Ambien) 5 mg PO QHS PRN PRN Reason: Insomnia Exam - Constitutional Vitals: Temp Pulse Resp BP Pulse Ox 98.5 F 67 18 169/77 96 08/03/17 10:30 08/03/17 11:45 08/03/17 10:30 08/03/17 11:45 08/03/17 08:52 Results - Labs CBC & Chem 7: 07/30/17 08:29 08/03/17 04:42 Labs: Abnormal lab results 08/03/17 Range/Units 04:42 BUN 58 H (9-20) mg/dL Creatinine 1.8 H (0.8-1.5) mg/dL Glucose 105 H (75-100) mg/dL Calcium 8.3 L (8.4-10.2) mg/dL
[2017-08-03] MEDS ORDERED: NACL 0.9 (PRIMING MACHINE ONLY DIALYSIS) MC ONE (13:42)
--- NOTE | 2017-08-03 13:55 | Progress Note ---
Assessment and Plan Assessment and plan: 82 y/o AAM Obese with PMH significant for HTN Gout and CHF comes in for increased weight of about 30 Lbs, Sob on minimal exertion and increasing swelling of both lower extremities He is more concerned with his left leg which has become red and painful over the last week. However he also complains of substantial edema to involve both lower extremities and his scrotum. He complains of shortness of breath on exertion and somewhat at rest. He has been taking Lasix and lisinopril.Also orthopnea present.No Chest pain or palpitations. CKD HD today, TTS schedule Nephrology following Scrotal cellulitis with possible L epididymitis Scrotal support Testicular doppler revealed hydrocele and possible epididymitis Urology following - recommends continued Ancef and silvadene creme Cellulitis of left leg Blood cultures taken shows no growth Pt on Ancef Acute Diastolic Heart Failure Patient on Bumex Daily weights and Check Echo showed EF of 50-55 Condom catheter to measure urine output HTN (hypertension) Controlled on Hydralazine Anemia of CKD Will continue to monitor - last labs 9.9 Will order CBC Atrial Fibrillation Rate controlled on BB, on Warfarin, monitoring INR Cardiology following Gout Allopurinol DVT prophylaxis SCD Heparin started History Interval history: Patient receiving HD resting comfortably. He denies CP, SOB, [place] Hospitalist Physical - Constitutional Vitals: Temp Pulse Resp BP Pulse Ox 98.5 F 67 18 169/77 96 08/03/17 10:30 08/03/17 11:45 08/03/17 10:30 08/03/17 11:45 08/03/17 08:52 General appearance: Present: no acute distress, well-nourished - EENT Eyes: Present: PERRL, EOM intact ENT: hearing intact, clear oral mucosa, poor dentition - Neck Neck: Present: supple, normal ROM - Respiratory Respiratory effort: normal Respiratory: bilateral: CTA - Cardiovascular Rhythm: irregularly irregular Heart Sounds: Present: S1 & S2 - Extremities Extremities: no ischemia Extremity abnormal: edema (L leg cellulitis) Peripheral Pulses: within normal limits - Abdominal General gastrointestinal: soft, non-tender - Integumentary Integumentary: Present: clear, warm, dry - Psychiatric Psychiatric: appropriate mood/affect, cooperative - Neurologic Neurologic: CNII-XII intact, moves all extremities - Allied Health Allied health notes reviewed: nursing Results - Labs CBC & Chem 7: 12/01/17 08:29 08/04/17 04:59 Labs: Laboratory Last Values WBC 6.8 K/mm3 (4.5-11.0) 07/30/17 08:29 RBC 3.36 M/mm3 (3.65-5.03) L 07/30/17 08:29 Hgb 9.9 gm/dl (11.8-15.2) L 07/30/17 08:29 Hct 31.6 % (35.5-45.6) L 07/30/17 08:29 MCV 94 fl (84-94) 07/30/17 08: MCH 29 pg (28-32) 07/30/17 08: MCHC 31 % (32-34) L 07/30/17 08: RDW 17.9 % (13.2-15.2) H 07/30/17 08:29 Plt Count 163 K/mm3 (140-440) 07/30/17 08:29 Lymph % (Auto) 4.3 % (13.4-35.0) L 07/30/17 08:29 [place] % (Auto) 9.3 % (0.0-7.3) H 07/30/17 08:29 Eos % (Auto) 1.0 % (0.0-4.3) 07/30/17 08: Baso % (Auto) 0.1 % (0.0-1.8) 07/30/17 08:29 Lymph # 0.3 K/mm3 (1.2-5.4) L 07/30/17 08:29 [place] # 0.6 K/mm3 (0.0-0.8) 07/30/17 08:29 Eos # 0.1 K/mm3 (0.0-0.4) 07/30/17 08:29 Baso # 0.0 K/mm3 (0.0-0.1) 07/30/17 08:29 Seg Neutrophils % 85.3 % (40.0-70.0) H 07/30/17 08:29 Seg Neutrophils # 5.8 K/mm3 (1.8-7.7) 07/30/17 08:29 PT 22.2 Sec. (12.2-14.9) H 07/29/17 07:28 INR 1.85 (0.87-1.13) H 07/29/17 07:28 D-Dimer 683.47 ng/mlDDU (0-234) H 07/29/17 07:28 POC ABG pH 7.276 (7.35-7.45) L 07/30/17 10:20 POC ABG pCO2 47.3 (35-45) H 07/30/17 10:20 POC ABG pO2 75 (80-105) L 07/30/17 10:20 POC ABG HCO3 22.0 07/30/17 10:20 POC ABG Total CO2 23 07/30/17 10:20 POC ABG O2 Sat 93 07/30/17 10:20 POC ABG Base Excess -5 07/30/17 10:20 FiO2 6 % 07/30/17 10:20 Sodium 140 mmol/L (137-145) 08/03/17 04:42 Potassium 4.5 mmol/L (3.6-5.0) D 08/03/17 04:42 Chloride 101.2 mmol/L (98-107) 08/03/17 04:42 Carbon Dioxide 25 mmol/L (22-30) 08/03/17 04:42 Anion Gap 18 mmol/L 08/03/17 04:42 BUN 58 mg/dL (9-20) H 08/03/17 04:42 Creatinine 1.8 mg/dL (0.8-1.5) H 08/03/17 04:42 Estimated GFR 44 ml/min 08/03/17 04:42 BUN/Creatinine Ratio 32 % 08/03/17 04:42 Glucose 105 mg/dL (75-100) H 08/03/17 04:42 Hemoglobin A1c 5.6 % (4-6) 07/29/17 Unknown Lactic Acid 1.50 mmol/L (0.7-2.0) 07/29/17 10:05 Calcium 8.3 mg/dL (8.4-10.2) L 08/03/17 04:42 Phosphorus 4.10 mg/dL (2.5-4.5) 07/29/17 07:28 Magnesium 2.50 mg/dL (1.7-2.3) H 07/29/17 07:28 Iron 25 ug/dL (49-181) L 07/30/17 08:29 TIBC 141 mcg/dL (250-450) L 07/30/17 08:29 % Saturation 17.73 % 07/30/17 08:29 Transferrin 133 mg/dl (180-329) L 07/30/17 08:29 Total Bilirubin 0.70 mg/dL (0.1-1.2) 07/30/17 08:29 AST 46 units/L (5-40) H 07/30/17 08:29 ALT 28 units/L (7-56) 07/30/17 08:29 Alkaline Phosphatase 134 units/L (35-129) H 07/30/17 08:29 Ammonia 32.0 umol/L (25-60) 07/30/17 13:04 Total Creatine Kinase 451 units/L (55-170) H 07/29/17 07:28 CK-MB (CK-2) 5.5 ng/mL (0.0-4.0) H 07/29/17 07:28 CK-MB (CK-2) Rel Index 1.2 (0-4) 07/29/17 07:28 Troponin T 0.083 ng/mL (0.00-0.029) H 07/30/17 18:24 NT-Pro-B Natriuret Pep 71387 pg/mL (0-900) H 07/29/17 07:28 Total Protein 7.8 g/dL (6.3-8.2) 07/30/17 08:29 Albumin 2.6 g/dL (3.9-5) L 07/30/17 08:29 Albumin/Globulin Ratio 0.5 % 07/30/17 08:29 Triglycerides 75 mg/dL (2-149) 07/29/17 07:28 Cholesterol 78 mg/dL (50-199) 07/29/17 07:28 LDL Cholesterol Direct 48 mg/dL (50-130) L 07/29/17 07:28 HDL Cholesterol 15 mg/dL (40-59) L 07/29/17 07:28 Cholesterol/HDL Ratio 5.20 % 07/29/17 07:28 Vitamin B12 > 2000 pg/mL (211-911) H 07/30/17 13:04 Urine Color Yellow (Yellow) 07/29/17 14:47 Urine Turbidity Clear (Clear) 07/29/17 14:47 Urine pH 5.0 (5.0-7.0) 07/29/17 14:47 Ur Specific [place] 1.013 (1.003-1.030) 07/29/17 14:47 Urine Protein <15 mg/dl mg/dL (Negative) 07/29/17 14:47 Urine Glucose (UA) Neg mg/dL (Negative) 07/29/17 14:47 Urine Ketones Neg mg/dL (Negative) 07/29/17 14:47 Urine Blood Mod (Negative) 07/29/17 14:47 Urine Nitrite Neg (Negative) 07/29/17 14:47 Urine Bilirubin Neg (Negative) 07/29/17 14:47 Urine Urobilinogen 2.0 mg/dL (<2.0) 07/29/17 14:47 Ur Leukocyte Esterase Neg (Negative) 07/29/17 14:47 Urine WBC (Auto) 2.0 /HPF (0.0-6.0) 07/29/17 14:47 Urine RBC (Auto) 6.0 /HPF (0.0-6.0) 07/29/17 14:47 U Epithel Cells (Auto) 1.0 /HPF (0-13.0) 07/29/17 14:47 Urine Bacteria (Auto) 1+ /HPF (Negative) 07/29/17 14:47 Urine Mucus Few /HPF 07/29/17 14:47 Hepatitis A IgM Ab Non-reactive (NonReactive) 07/30/17 13:04 Hep Bs Antigen Non-reactive (Negative) 07/30/17 13:04 Hep B Core IgM Ab Non-reactive (NonReactive) 07/30/17 13:04 Hepatitis C Antibody Non-reactive (NonReactive) 07/30/17 13:04
[2017-08-03] MEDS ORDERED: HEPARIN SUB-Q SCH (14:00)
[2017-08-03] MEDS: ceFAZolin 1 GM in NACL 0.9% 20 ML IV SCH (15:19)
[2017-08-03] MEDS ORDERED: COUMADIN PO SCH (17:00)
[2017-08-03] MEDS: PERCOCET 5/325 PO PRN (18:35)
[2017-08-03] MEDS: COUMADIN PO SCH (20:45)
[2017-08-04 05:36] LABS: INR 1.21 (0.87-1.13)
[2017-08-04 05:42] LABS: Anion Gap 16 mmol/L; BUN/Creatinine Ratio 28; Blood Urea Nitrogen 36 mg/dL (9-20); Carbon Dioxide 28 mmol/L (22-30); Chloride 98.1 mmol/L (98-107); Glucose 107 mg/dL (75-100); Potassium 3.7 mmol/L (3.6-5.0); Sodium 138 mmol/L (137-145)
[2017-08-04] MEDS: APRESOLINE PO SCH ×3 (06:51→22:51)
[2017-08-04] MEDS: BUMEX IV SCH ×2 (06:52→17:12)
--- NOTE | 2017-08-04 08:18 | Progress Note ---
Assessment and Plan Impression * Acute Renal insufficiency on chronic kidney disease * Congestive heart failure * Peripheral edema * Mild hyperkalemia * History of hypertension * History of gout * Elevated transaminases level * Microhematuria Recommendations * HD prn for volume control, s/p 2 treatments * monitor mental status--do not think he is uremic--?baseline * neurology evaluation needed * daily lytes * Patient's urine does showed a few red cells but no significant dipstick protein. need to consider ATN and other causes of acute kidney injury * renal ultrasound is essentially normal. No hydronephrosis * Patient is clinically volume overloaded. Continue intravenous loop diuretic * Avoid nephrotoxins * Follow up results of Vasculitis workup * Continue to hold his JOSE ALEJANDRO inhibitor for now * urology following and scrotal wound and cellulitis * pt to eval and treat * no ready for dc today * may need rehab placement * unsure if she need penitentiary hd as of yet Subjective Date of service: 08/04/17 Principal diagnosis: CHF cellulitis LLE Interval history: Patient is somewhat lethargic. Appears comfortable. Objective - Exam Narrative Exam: General appearance: well-developed, well-nourished, appears stated age EENT: PERRL, mucous membranes moist Neck: no JVD, no thyromegaly, no carotid bruit, supple Respiratory: Present: Decreased Breath Sounds (at the bases) Cardiology: regular, normal heart rate, S1S2, no murmurs Gastrointestinal: normal, normoactive bowel sounds Integumentary: other (2+ edema) - Vital Signs Vital signs: Vital Signs - 12hr 08/03/17 08/03/17 08/03/17 20:19 20:52 22:46 Temperature 99.9 F H Pulse Rate 68 Respiratory 20 Rate Blood Pressure 159/66 Blood Pressure [Right] O2 Sat by Pulse 95 84 Oximetry 08/03/17 08/04/17 08/04/17 22:55 04:04 06:51 Temperature 97.2 F L Pulse Rate 68 69 69 Respiratory 20 Rate Blood Pressure 159/66 151/65 151/65 Blood Pressure [Right] O2 Sat by Pulse 91 Oximetry 08/04/17 08/04/17 08:09 08:10 Temperature 99.4 F Pulse Rate 57 L Respiratory 20 Rate Blood Pressure Blood Pressure 155/68 [Right] O2 Sat by Pulse 92 Oximetry - Lab 07/30/17 08:29 08/04/17 04:59 Most recent lab results Calcium 8.0 mg/dL (8.4-10.2) L 08/04/17 04:59 Phosphorus 4.10 mg/dL (2.5-4.5) 07/29/17 07:28 Magnesium 2.50 mg/dL (1.7-2.3) H 07/29/17 07:28
[2017-08-04] MEDS: ZYLOPRIM PO SCH (09:24)
[2017-08-04] MEDS: ZAROXOLYN PO SCH (09:24)
[2017-08-04] MEDS: ceFAZolin 1 GM in NACL 0.9% 20 ML IV SCH (09:24)
[2017-08-04] MEDS: DELTASONE PO SCH (09:24)
[2017-08-04] MEDS: NORVASC PO SCH (09:25)
[2017-08-04] MEDS: PEPCID PO SCH ×2 (09:25→22:51)
[2017-08-04] MEDS: THERMAZENE 50 GRAM TP SCH (09:30)
--- NOTE | 2017-08-04 10:01 | Progress Note ---
Assessment and Plan Alteration of mental status normal head CT Left lower extremity cellulitis no evidence of DVT Severe pulmonary hypertension CKD -initiated on dialysis Hypertension Chronic Afib rate control is optimal without AV aaron blocking agents suggesting that the patient has underlying conduction system disease. on warfarin therapy for oral anticoagulation [facility] 2016: no significant CAD with preserved LV systolic function. EF 50-55% on echocardiogram this admission. Recommend: Continue anticoagulation for stroke prophylaxis. Subjective Date of service: 08/04/17 Principal diagnosis: CHF cellulitis LLE Interval history: Short burst of NSVT overnight. Patient remained asymptomatic. Objective Vital Signs Temp Pulse Resp BP BP Pulse Ox 08/04/17 09:25 57 L 155/68 08/04/17 08:10 99.4 F 155/68 08/04/17 08:09 57 L 20 92 08/04/17 06:51 69 151/65 08/04/17 04:04 97.2 F L 69 20 151/65 91 08/03/17 22:55 68 159/66 08/03/17 22:46 68 84 08/03/17 22:00 20 08/03/17 20:52 95 08/03/17 20:19 99.9 F H 20 159/66 08/03/17 15:23 98.1 F 69 20 150/63 95 08/03/17 15:00 96 08/03/17 13:46 98.2 F 68 18 165/73 08/03/17 13:45 65 160/70 08/03/17 13:30 70 156/62 08/03/17 13:15 64 147/64 08/03/17 13:00 71 161/70 08/03/17 12:45 69 152/69 08/03/17 12:30 71 163/62 08/03/17 12:15 70 160/63 08/03/17 12:00 67 127/69 08/03/17 11:45 67 169/77 08/03/17 11:30 70 166/71 08/03/17 11:15 66 158/65 08/03/17 11:00 66 147/68 08/03/17 10:45 67 163/65 08/03/17 10:35 68 167/69 08/03/17 10:30 98.5 F 66 18 168/71 - Physical Examination General: No Apparent Distress, Other (obese) HEENT: Positive: PERRL Cardiac: Positive: irregularly irregular Neuro: Positive: Grossly Intact Extremities: Present: +2 Edema - Labs and Meds Coagulation 08/04/17 Range/Units 04:59 PT 16.0 H (12.2-14.9) Sec. INR 1.21 H (0.87-1.13) Comprehensive Metabolic Panel 08/04/17 Range/Units 04:59 Sodium 138 (137-145) mmol/L Potassium 3.7 (3.6-5.0) mmol/L Chloride 98.1 (98-107) mmol/L Carbon Dioxide 28 (22-30) mmol/L BUN 36 H (9-20) mg/dL Creatinine 1.3 (0.8-1.5) mg/dL Glucose 107 H (75-100) mg/dL Calcium 8.0 L (8.4-10.2) mg/dL - Imaging and Cardiology EKG: report reviewed
[2017-08-04] MEDS: PERCOCET 5/325 PO PRN (13:07)
--- NOTE | 2017-08-04 13:26 | Progress Note ---
Assessment and Plan Assessment and plan: 82 y/o AAM Obese with PMH significant for HTN Gout and CHF comes in for increased weight of about 30 Lbs, Sob on minimal exertion and increasing swelling of both lower extremities He is more concerned with his left leg which has become red and painful over the last week. However he also complains of substantial edema to involve both lower extremities and his scrotum. He complains of shortness of breath on exertion and somewhat at rest. He has been taking Lasix and lisinopril.Also orthopnea present.No Chest pain or palpitations. CKD S/p HD yesterday, TTS schedule Stable Nephrology following Scrotal cellulitis with possible L epididymitis Scrotal support Testicular doppler revealed hydrocele and possible epididymitis Urology following - recommends continued Ancef and silvadene creme Cellulitis of left leg Blood cultures taken shows no growth Pt on Ancef Acute Diastolic Heart Failure Patient on Bumex Daily weights and Check Echo showed EF of 50-55 Condom catheter to measure urine output HTN (hypertension) Controlled on Hydralazine Anemia of CKD Will continue to monitor - last labs 9.9 Will order CBC Atrial Fibrillation Rate controlled on BB, on Warfarin, monitoring INR Cardiology following Gout Allopurinol DVT prophylaxis SCD Heparin started History Interval history: Patient is sitting in wheelchair with family in room. He denies CP, SOB, [place]. He complains of L leg pain Hospitalist Physical - Constitutional Vitals: Temp Pulse Resp BP Pulse Ox 99.4 F 57 L 20 155/68 97 08/04/17 08:10 08/04/17 09:25 08/04/17 08:09 08/04/17 09:25 08/04/17 10:00 General appearance: Present: mild distress, well-nourished - EENT Eyes: Present: PERRL, EOM intact ENT: hearing intact, clear oral mucosa - Neck Neck: Present: supple, normal ROM - Respiratory Respiratory effort: normal Respiratory: bilateral: CTA - Cardiovascular Rhythm: regular Heart Sounds: Present: S1 & S2 - Extremities Extremities: no ischemia, pulses intact Extremity abnormal: edema (L lower extremity) Peripheral Pulses: within normal limits - Abdominal General gastrointestinal: deferred - Integumentary Integumentary: Present: clear, warm, dry - Psychiatric Psychiatric: appropriate mood/affect, cooperative - Neurologic Neurologic: CNII-XII intact, moves all extremities - Allied Health Allied health notes reviewed: nursing Results - Labs CBC & Chem 7: 07/30/17 08:29 08/04/17 04:59 Labs: Laboratory Last Values WBC 6.8 K/mm3 (4.5-11.0) 07/30/17 08:29 RBC 3.36 M/mm3 (3.65-5.03) L 07/30/17 08:29 Hgb 9.9 gm/dl (11.8-15.2) L 07/30/17 08:29 Hct 31.6 % (35.5-45.6) L 07/30/17 08:29 MCV 94 fl (84-94) 07/30/17 08: MCH 29 pg (28-32) 07/30/17 08: MCHC 31 % (32-34) L 07/30/17 08: RDW 17.9 % (13.2-15.2) H 07/30/17 08:29 Plt Count 163 K/mm3 (140-440) 07/30/17 08:29 Lymph % (Auto) 4.3 % (13.4-35.0) L 07/30/17 08:29 [place] % (Auto) 9.3 % (0.0-7.3) H 07/30/17 08:29 Eos % (Auto) 1.0 % (0.0-4.3) 07/30/17 08:29 Baso % (Auto) 0.1 % (0.0-1.8) 07/30/17 08:29 Lymph # 0.3 K/mm3 (1.2-5.4) L 07/30/17 08:29 [place] # 0.6 K/mm3 (0.0-0.8) 07/30/17 08:29 Eos # 0.1 K/mm3 (0.0-0.4) 07/30/17 08:29 Baso # 0.0 K/mm3 (0.0-0.1) 07/30/17 08:29 Seg Neutrophils % 85.3 % (40.0-70.0) H 07/30/17 08:29 Seg Neutrophils # 5.8 K/mm3 (1.8-7.7) 07/30/17 08:29 PT 16.0 Sec. (12.2-14.9) H 08/04/17 04:59 INR 1.21 (0.87-1.13) H 08/04/17 04:59 D-Dimer 683.47 ng/mlDDU (0-234) H 07/29/17 07:28 POC ABG pH 7.276 (7.35-7.45) L 07/30/17 10:20 POC ABG pCO2 47.3 (35-45) H 07/30/17 10:20 POC ABG pO2 75 (80-105) L 07/30/17 10:20 POC ABG HCO3 22.0 07/30/17 10:20 POC ABG Total CO2 23 07/30/17 10:20 POC ABG O2 Sat 93 07/30/17 10:20 POC ABG Base Excess -5 07/30/17 10:20 FiO2 6 % 07/30/17 10:20 Sodium 138 mmol/L (137-145) 08/04/17 04:59 Potassium 3.7 mmol/L (3.6-5.0) 08/04/17 04:59 Chloride 98.1 mmol/L (98-107) 08/04/17 04:59 Carbon Dioxide 28 mmol/L (22-30) 08/04/17 04:59 Anion Gap 16 mmol/L 08/04/17 04:59 BUN 36 mg/dL (9-20) H 08/04/17 04:59 Creatinine 1.3 mg/dL (0.8-1.5) 08/04/17 04:59 Estimated GFR > 60 ml/min 08/04/17 04:59 BUN/Creatinine Ratio 28 % 08/04/17 04:59 Glucose 107 mg/dL (75-100) H 08/04/17 04:59 Hemoglobin A1c 5.6 % (4-6) 07/29/17 Unknown Lactic Acid 1.50 mmol/L (0.7-2.0) 07/29/17 10:05 Calcium 8.0 mg/dL (8.4-10.2) L 08/04/17 04:59 Phosphorus 4.10 mg/dL (2.5-4.5) 07/29/17 07:28 Magnesium 2.50 mg/dL (1.7-2.3) H 07/29/17 07:28 Iron 25 ug/dL (49-181) L 07/30/17 08:29 TIBC 141 mcg/dL (250-450) L 07/30/17 08:29 % Saturation 17.73 % 07/30/17 08:29 Transferrin 133 mg/dl (180-329) L 07/30/17 08:29 Total Bilirubin 0.70 mg/dL (0.1-1.2) 07/30/17 08:29 AST 46 units/L (5-40) H 07/30/17 08:29 ALT 28 units/L (7-56) 07/30/17 08:29 Alkaline Phosphatase 134 units/L (35-129) H 07/30/17 08:29 Ammonia 32.0 umol/L (25-60) 07/30/17 13:04 Total Creatine Kinase 451 units/L (55-170) H 07/29/17 07:28 CK-MB (CK-2) 5.5 ng/mL (0.0-4.0) H 07/29/17 07:28 CK-MB (CK-2) Rel Index 1.2 (0-4) 07/29/17 07:28 Troponin T 0.083 ng/mL (0.00-0.029) H 07/30/17 18:24 NT-Pro-B Natriuret Pep 14039 pg/mL (0-900) H 07/29/17 07:28 Total Protein 7.8 g/dL (6.3-8.2) 07/30/17 08:29 Albumin 2.6 g/dL (3.9-5) L 07/30/17 08:29 Albumin/Globulin Ratio 0.5 % 07/30/17 08:29 Triglycerides 75 mg/dL (2-149) 07/29/17 07:28 Cholesterol 78 mg/dL (50-199) 07/29/17 07:28 LDL Cholesterol Direct 48 mg/dL (50-130) L 07/29/17 07:28 HDL Cholesterol 15 mg/dL (40-59) L 07/29/17 07:28 Cholesterol/HDL Ratio 5.20 % 07/29/17 07:28 Vitamin B12 > 2000 pg/mL (211-911) H 07/30/17 13:04 Urine Color Yellow (Yellow) 07/29/17 14:47 Urine Turbidity Clear (Clear) 07/29/17 14:47 Urine pH 5.0 (5.0-7.0) 07/29/17 14:47 Ur Specific [place] 1.013 (1.003-1.030) 07/29/17 14:47 Urine Protein <15 mg/dl mg/dL (Negative) 07/29/17 14:47 Urine Glucose (UA) Neg mg/dL (Negative) 07/29/17 14:47 Urine Ketones Neg mg/dL (Negative) 07/29/17 14:47 Urine Blood Mod (Negative) 07/29/17 14:47 Urine Nitrite Neg (Negative) 07/29/17 14:47 Urine Bilirubin Neg (Negative) 07/29/17 14:47 Urine Urobilinogen 2.0 mg/dL (<2.0) 07/29/17 14:47 Ur Leukocyte Esterase Neg (Negative) 07/29/17 14:47 Urine WBC (Auto) 2.0 /HPF (0.0-6.0) 07/29/17 14:47 Urine RBC (Auto) 6.0 /HPF (0.0-6.0) 07/29/17 14:47 U Epithel Cells (Auto) 1.0 /HPF (0-13.0) 07/29/17 14:47 Urine Bacteria (Auto) 1+ /HPF (Negative) 07/29/17 14:47 Urine Mucus Few /HPF 07/29/17 14:47 Hepatitis A IgM Ab Non-reactive (NonReactive) 07/30/17 13:04 Hep Bs Antigen Non-reactive (Negative) 07/30/17 13:04 Hep B Core IgM Ab Non-reactive (NonReactive) 07/30/17 13:04 Hepatitis C Antibody Non-reactive (NonReactive) 07/30/17 13:04
[2017-08-04] MEDS: COUMADIN PO SCH (17:11)
[2017-08-05 03:16] LABS: INR 1.18 (0.87-1.13)
[2017-08-05 06:10] LABS: Anion Gap 15 mmol/L; BUN/Creatinine Ratio 28; Blood Urea Nitrogen 36 mg/dL (9-20); Carbon Dioxide 29 mmol/L (22-30); Chloride 100.8 mmol/L (98-107); Glucose 106 mg/dL (75-100); Potassium 3.8 mmol/L (3.6-5.0); Sodium 141 mmol/L (137-145)
--- NOTE | 2017-08-05 09:13 | Progress Note ---
Assessment and Plan Alteration of mental status normal head CT Left lower extremity cellulitis no evidence of DVT Severe pulmonary hypertension Acute on CKD -initiated on dialysis Hypertension Chronic Afib rate control is optimal without AV aaron blocking agents suggesting that the patient has underlying conduction system disease. on warfarin therapy for oral anticoagulation [facility] 2016: no significant CAD with preserved LV systolic function. EF 50-55% on echocardiogram this admission. Conservative cardiac management. Subjective Date of service: 08/05/17 Principal diagnosis: CHF cellulitis LLE Interval history: Patient is resting in bed comfortably. He has no complaints. No cardiac events reported. Objective Vital Signs Temp Pulse Resp BP BP Pulse Ox 08/05/17 08:47 98.5 F 20 144/61 08/05/17 06:52 158/69 08/05/17 06:00 98.3 F 78 92 08/04/17 22:51 71 141/61 08/04/17 22:05 98.4 F 71 18 141/61 94 08/04/17 20:56 95 08/04/17 16:00 99.2 F 73 93 H 129/41 08/04/17 15:00 64 08/04/17 10:00 97 08/04/17 09:25 57 L 155/68 - Physical Examination General: No Apparent Distress, Other (obese) HEENT: Positive: PERRL Cardiac: Positive: irregularly irregular Neuro: Positive: Grossly Intact Extremities: Present: +2 Edema - Labs and Meds Coagulation 08/05/17 Range/Units 02:44 PT 15.6 H (12.2-14.9) Sec. INR 1.18 H (0.87-1.13) Comprehensive Metabolic Panel 08/05/17 Range/Units 05:36 Sodium 141 (137-145) mmol/L Potassium 3.8 (3.6-5.0) mmol/L Chloride 100.8 (98-107) mmol/L Carbon Dioxide 29 (22-30) mmol/L BUN 36 H (9-20) mg/dL Creatinine 1.3 (0.8-1.5) mg/dL Glucose 106 H (75-100) mg/dL Calcium 8.0 L (8.4-10.2) mg/dL - Imaging and Cardiology EKG: report reviewed
[2017-08-05] MEDS: DELTASONE PO SCH (09:43)
[2017-08-05] MEDS: ZYLOPRIM PO SCH (09:43)
[2017-08-05] MEDS: ZAROXOLYN PO SCH (09:44)
[2017-08-05] MEDS: PEPCID PO SCH ×2 (09:44→21:51)
[2017-08-05] MEDS: ceFAZolin 1 GM in NACL 0.9% 20 ML IV SCH ×2 (09:44→21:58)
[2017-08-05] MEDS: PERCOCET 5/325 PO PRN ×2 (11:16→21:52)
--- NOTE | 2017-08-05 13:12 | Progress Note ---
Assessment and Plan Impression * Acute Renal insufficiency on chronic kidney disease * Congestive heart failure * Peripheral edema * Mild hyperkalemia * History of hypertension * History of gout * Elevated transaminases level * Microhematuria Recommendations * HD prn for volume control, s/p 2 treatments * Monitor mental status--do not think he is uremic--?baseline * Patient is clinically volume overloaded. Continue intravenous loop diuretic * Avoid nephrotoxins * Follow up results of vasculitis workup * Continue to hold his JOSE ALEJANDRO inhibitor for now * Urology following for scrotal wound and cellulitis * pt to eval and treat * not ready for dc today * may need rehab placement * unsure if she need terminal worker hd as of yet Subjective Date of service: 08/05/17 Principal diagnosis: CHF cellulitis LLE Objective - Vital Signs Vital signs: Vital Signs - 12hr 08/05/17 08/05/17 08/05/17 06:00 06:52 08:47 Temperature 98.3 F 98.5 F Pulse Rate 78 Respiratory 20 Rate Blood Pressure 158/69 144/61 O2 Sat by Pulse 92 Oximetry 08/05/17 09:18 Temperature Pulse Rate Respiratory Rate Blood Pressure O2 Sat by Pulse 99 Oximetry - Lab 07/30/17 08:29 08/05/17 05:36 Most recent lab results Calcium 8.0 mg/dL (8.4-10.2) L 08/05/17 05:36 Phosphorus 4.10 mg/dL (2.5-4.5) 07/29/17 07:28 Magnesium 2.50 mg/dL (1.7-2.3) H 07/29/17 07:28
--- NOTE | 2017-08-05 14:09 | Discharge Summary ---
<KARO ALVARES - Last Filed: 08/09/17 13:17> Providers - Providers Date of Admission: 07/29/17 20:17 Date of discharge: 08/09/17 Attending physician: ROSAURA CARO 07/29/17 14:54 Consult to Physician [CONS] Urgent Consulting Provider: KRISSY WOODALL Reason For Exam: anasarca low EF cardiomyopathy on lasix Place consult to:: viky Notified:: yes Phone number called:: [phone] Was contact made?: Yes If yes, spoke with:: viky Time called:: 08:48 Comment:: skylar 07/30/17 06:14 Consult to Wound/ET Nurse [CONS] Routine Reason For Exam: wound eval 07/30/17 15:35 Consult to Physician [CONS] Urgent Consulting Provider: ANTOINE GARCIA Reason For Exam: PAO Place consult to:: office Notified:: Yes Was contact made?: Yes 08/01/17 12:12 Consult to Physician [CONS] Routine Consulting Provider: CHCIO THACKER Reason For Exam: permcath placement Place consult to:: Spoke with Dr. Thacker Notified:: yes Was contact made?: Yes 08/03/17 10:49 Consult to Wound/ET Nurse [CONS] Routine Reason For Exam: wound eval 08/04/17 08:18 Physical Therapy Evaluation and Treat [CONS] Routine Comment: Reason For Exam: deconditing Mode of Transport?: Wheelchair Assistive devices?: No Primary care physician: [facility] Hospitalization Condition: Stable Hospital course: 82 y/o AAM Obese with PMH significant for HTN Gout and CHF comes in for increased weight of about 30 Lbs, Sob on minimal exertion and increasing swelling of both lower extremities He is more concerned with his left leg which has become red and painful over the last week. However he also complains of substantial edema to involve both lower extremities and his scrotum. He complains of shortness of breath on exertion and somewhat at rest. He has been taking Lasix and lisinopril. Also orthopnea present. No Chest pain or palpitations. Chest X ray revealed mild CHF. Venous Duplex LE LT revealed no evidence of acute or chronic DVT in the L lower extremity. Head CT was within normal limits. Echocardiogram estimates EF 50-55%. Reval US was negative for hydronephrosis. Testicular US revealed scrotal cellulitis with possible left epididymitis. Permcath was inserted and patient was initiated on Hemodialysis X2 days. HD will continue PRN, nephrology following, patient to f/u as outpatient. Patient was treated with antibiotics, diuretics, Coumadin, antihypertensives, and IVF. Patient clinically stable. Discharge Diagnosis PAO superimposed on Chronic Kidney disease Cellulitis of Left leg HTN [place] Fibrillation Acute Ecacerbation of CHF Scrotal Cellulitis Peripheral edema Anemia Disposition: DC-01 TO HOME OR SELFCARE Core Measure Documentation - Palliative Care Palliative Care/ Comfort Measures: Not Applicable - Core Measures Any of the following diagnoses?: none, history only Exam - Constitutional Vitals: Temp Pulse Resp BP Pulse Ox 98.5 F 78 20 144/61 99 08/05/17 08:47 08/05/17 06:00 08/05/17 08:47 08/05/17 08:47 08/05/17 09:18 General appearance: Present: no acute distress - EENT Eyes: Present: PERRL ENT: hearing intact, clear oral mucosa - Neck Neck: Present: supple, normal ROM - Respiratory Respiratory effort: normal Respiratory: bilateral: CTA - Cardiovascular Rhythm: irregularly irregular Heart Sounds: Present: S1 & S2. Absent: rub, click - Extremities Extremities: pulses symmetrical Extremity abnormal: edema (L lower leg cellulitis) Peripheral Pulses: within normal limits - Abdominal General gastrointestinal: Present: soft, non-tender, non-distended, normal bowel sounds Male genitourinary: Present: deferred - Rectal Rectal Exam: deferred - Integumentary Integumentary: Present: warm, dry - Musculoskeletal Musculoskeletal: gait normal, strength equal bilaterally - Psychiatric Psychiatric: appropriate mood/affect, intact judgment & insight - Neurologic Neurologic: CNII-XII intact, moves all extremities - Allied Health Allied health notes reviewed: nursing Plan Activity: fall precautions Weight Bearing Status: Weight Bear as Tolerated Diet: low fat, low cholesterol, low salt Follow up with: PRIMARY CAREMD [Primary Care Provider] - 3-5 Days PATRICIA WALL MD [Staff Physician] - 7 Days ANDREAS SURESH MD [Staff Physician] - 7 Days Forms: Warfarin Discharge Instruction Prescriptions: RX: Bumetanide [Bumex INJ] 1 mg PO Q12H 30 Days tab RX: Clindamycin [Clindamycin CAP] 300 mg PO Q6H 10 Days capsule RX: Metolazone [Zaroxolyn] 2.5 mg PO QDAY 30 Days tablet RX: oxyCODONE /ACETAMINOPHEN [Percocet 5/325 mg] 1 tab PO Q6H PRN #20 tablet PRN Reason: Pain, Moderate (4-6) RX: SILVER sulfADIAZINE 50 GRAM [Thermazene 50 Gram] 1 applic TP BID #1 tube RX: Warfarin [Coumadin] 3 mg PO DAILY@1700 #30 tablet <LUPILLO BROCK - Last Filed: 08/09/17 17:05> Providers - Providers Date of Admission: 07/29/17 20:17 Attending physician: LUPILLO BROCK 07/30/17 06:14 Consult to Wound/ET Nurse [CONS] Routine Reason For Exam: wound eval 07/30/17 15:35 Consult to Physician [CONS] Urgent Consulting Provider: ANTOINE GARCIA Reason For Exam: PAO Place consult to:: office Notified:: Yes Was contact made?: Yes 08/01/17 12:12 Consult to Physician [CONS] Routine Consulting Provider: CHICO THACKER Reason For Exam: permcath placement Place consult to:: Spoke with Dr. Thacker Notified:: yes Was contact made?: Yes 08/03/17 10:49 Consult to Wound/ET Nurse [CONS] Routine Reason For Exam: wound eval 08/04/17 08:18 Physical Therapy Evaluation and Treat [CONS] Routine Comment: Reason For Exam: deconditing Mode of Transport?: Wheelchair Assistive devices?: No Primary care physician: [facility] Hospitalization Hospital course: I saw and evaluated the patient. I agree with the findings and the plan of care as documented in the Nurse Practitioner's~note, with the following corrections and additions. Patient was cleared by nephrology for discharge and follow-up with them in the office Patient received HD 2, being treated with diuretics for his fluid overload Prescriptions given for Bumex as recommended by nephrology, and clindamycin for his cellulitis Patient advised to follow up with primary care physician, nephrology, cardiology and urology per schedule Patient has Home health Time spent for discharge: 32 min Exam - Constitutional Vitals: Temp Pulse Resp BP Pulse Ox 100.2 F H 59 L 20 143/69 95 08/09/17 07:53 08/09/17 07:53 08/09/17 07:53 08/09/17 07:53 08/09/17 07:53 Plan Additional Instructions: Next INR in 2 days at [facility] office/ HH nurse, target INR 2-3
[2017-08-05] MEDS: APRESOLINE PO SCH ×2 (14:30→21:50)
--- NOTE | 2017-08-05 15:23 | Progress Note ---
Assessment and Plan Assessment and plan: 82 y/o AAM Obese with PMH significant for HTN Gout and CHF comes in for increased weight of about 30 Lbs, Sob on minimal exertion and increasing swelling of both lower extremities He is more concerned with his left leg which has become red and painful over the last week. However he also complains of substantial edema to involve both lower extremities and his scrotum. He complains of shortness of breath on exertion and somewhat at rest. He has been taking Lasix and lisinopril.Also orthopnea present.No Chest pain or palpitations. CKD HD today, TTS schedule Renal function continues to improve Nephrology following Scrotal cellulitis with possible L epididymitis Scrotal support Testicular doppler revealed hydrocele and possible epididymitis Urology following - recommends continued Ancef and silvadene creme Cellulitis of left leg Blood cultures taken shows no growth Pt on po cefuroxime Acute Diastolic Heart Failure Patient on Bumex Daily weights and Check Echo showed EF of 50-55 Condom catheter to measure urine output HTN (hypertension) Controlled on Hydralazine Anemia of CKD Will continue to monitor - last labs 9.9 Will order CBC Atrial Fibrillation Rate controlled on BB, on Warfarin, monitoring INR Cardiology following Gout Allopurinol DVT prophylaxis SCD Heparin started History Interval history: Patient is sitting in wheelchair with family in room. He denies CP, SOB, NV. He complains of L leg pain which has removed from yesterday Hospitalist Physical - Constitutional Vitals: Temp Pulse Resp BP Pulse Ox 98.5 F 78 20 144/61 99 08/05/17 08:47 08/05/17 06:00 08/05/17 08:47 08/05/17 08:47 08/05/17 09:18 General appearance: Present: no acute distress - EENT Eyes: Present: PERRL, EOM intact ENT: hearing intact, clear oral mucosa - Neck Neck: Present: supple, normal ROM - Respiratory Respiratory effort: normal Respiratory: bilateral: CTA - Cardiovascular Rhythm: regular Heart Sounds: Present: S1 & S2 - Extremities Extremities: no ischemia, No edema - Abdominal General gastrointestinal: soft, non-tender - Integumentary Integumentary: Present: clear, warm, dry - Psychiatric Psychiatric: appropriate mood/affect, cooperative - Neurologic Neurologic: CNII-XII intact, moves all extremities - Allied Health Allied health notes reviewed: nursing Results - Labs CBC & Chem 7: 12/01/17 08:29 08/05/17 05:36 Labs: Laboratory Last Values WBC 6.8 K/mm3 (4.5-11.0) 07/30/17 08:29 RBC 3.36 M/mm3 (3.65-5.03) L 07/30/17 08:29 Hgb 9.9 gm/dl (11.8-15.2) L 07/30/17 08: Hct 31.6 % (35.5-45.6) L 07/30/17 08:29 MCV 94 fl (84-94) 07/30/17 08: MCH 29 pg (28-32) 07/30/17 08: MCHC 31 % (32-34) L 07/30/17 08: RDW 17.9 % (13.2-15.2) H 07/30/17 08:29 Plt Count 163 K/mm3 (140-440) 07/30/17 08:29 Lymph % (Auto) 4.3 % (13.4-35.0) L 07/30/17 08:29 [place] % (Auto) 9.3 % (0.0-7.3) H 07/30/17 08:29 Eos % (Auto) 1.0 % (0.0-4.3) 07/30/17 08: Baso % (Auto) 0.1 % (0.0-1.8) 07/30/17 08:29 Lymph # 0.3 K/mm3 (1.2-5.4) L 07/30/17 08:29 [place] # 0.6 K/mm3 (0.0-0.8) 07/30/17 08:29 Eos # 0.1 K/mm3 (0.0-0.4) 07/30/17 08:29 Baso # 0.0 K/mm3 (0.0-0.1) 07/30/17 08:29 Seg Neutrophils % 85.3 % (40.0-70.0) H 07/30/17 08:29 Seg Neutrophils # 5.8 K/mm3 (1.8-7.7) 07/30/17 08:29 PT 15.6 Sec. (12.2-14.9) H 08/05/17 02:44 INR 1.18 (0.87-1.13) H 08/05/17 02:44 D-Dimer 683.47 ng/mlDDU (0-234) H 07/29/17 07:28 POC ABG pH 7.276 (7.35-7.45) L 07/30/17 10:20 POC ABG pCO2 47.3 (35-45) H 07/30/17 10:20 POC ABG pO2 75 (80-105) L 07/30/17 10:20 POC ABG HCO3 22.0 07/30/17 10:20 POC ABG Total CO2 23 07/30/17 10:20 POC ABG O2 Sat 93 07/30/17 10:20 POC ABG Base Excess -5 07/30/17 10:20 FiO2 6 % 07/30/17 10:20 Sodium 141 mmol/L (137-145) 08/05/17 05:36 Potassium 3.8 mmol/L (3.6-5.0) 08/05/17 05:36 Chloride 100.8 mmol/L (98-107) 08/05/17 05:36 Carbon Dioxide 29 mmol/L (22-30) 08/05/17 05:36 Anion Gap 15 mmol/L 08/05/17 05:36 BUN 36 mg/dL (9-20) H 08/05/17 05:36 Creatinine 1.3 mg/dL (0.8-1.5) 08/05/17 05:36 Estimated GFR > 60 ml/min 08/05/17 05:36 BUN/Creatinine Ratio 28 % 08/05/17 05:36 Glucose 106 mg/dL (75-100) H 08/05/17 05:36 Hemoglobin A1c 5.6 % (4-6) 07/29/17 Unknown Lactic Acid 1.50 mmol/L (0.7-2.0) 07/29/17 10:05 Calcium 8.0 mg/dL (8.4-10.2) L 08/05/17 05:36 Phosphorus 4.10 mg/dL (2.5-4.5) 07/29/17 07:28 Magnesium 2.50 mg/dL (1.7-2.3) H 07/29/17 07:28 Iron 25 ug/dL (49-181) L 07/30/17 08:29 TIBC 141 mcg/dL (250-450) L 07/30/17 08:29 % Saturation 17.73 % 07/30/17 08:29 Transferrin 133 mg/dl (180-329) L 07/30/17 08:29 Total Bilirubin 0.70 mg/dL (0.1-1.2) 07/30/17 08:29 AST 46 units/L (5-40) H 07/30/17 08:29 ALT 28 units/L (7-56) 07/30/17 08:29 Alkaline Phosphatase 134 units/L (35-129) H 07/30/17 08:29 Ammonia 32.0 umol/L (25-60) 07/30/17 13:04 Total Creatine Kinase 451 units/L (55-170) H 07/29/17 07:28 CK-MB (CK-2) 5.5 ng/mL (0.0-4.0) H 07/29/17 07:28 CK-MB (CK-2) Rel Index 1.2 (0-4) 07/29/17 07:28 Troponin T 0.083 ng/mL (0.00-0.029) H 07/30/17 18:24 NT-Pro-B Natriuret Pep 30286 pg/mL (0-900) H 07/29/17 07:28 Total Protein 7.8 g/dL (6.3-8.2) 07/30/17 08:29 Albumin 2.6 g/dL (3.9-5) L 07/30/17 08:29 Albumin/Globulin Ratio 0.5 % 07/30/17 08:29 Triglycerides 75 mg/dL (2-149) 07/29/17 07:28 Cholesterol 78 mg/dL (50-199) 07/29/17 07:28 LDL Cholesterol Direct 48 mg/dL (50-130) L 07/29/17 07:28 HDL Cholesterol 15 mg/dL (40-59) L 07/29/17 07:28 Cholesterol/HDL Ratio 5.20 % 07/29/17 07:28 Vitamin B12 > 2000 pg/mL (211-911) H 07/30/17 13:04 Urine Color Yellow (Yellow) 07/29/17 14:47 Urine Turbidity Clear (Clear) 07/29/17 14:47 Urine pH 5.0 (5.0-7.0) 07/29/17 14:47 Ur Specific [place] 1.013 (1.003-1.030) 07/29/17 14:47 Urine Protein <15 mg/dl mg/dL (Negative) 07/29/17 14:47 Urine Glucose (UA) Neg mg/dL (Negative) 07/29/17 14:47 Urine Ketones Neg mg/dL (Negative) 07/29/17 14:47 Urine Blood Mod (Negative) 07/29/17 14:47 Urine Nitrite Neg (Negative) 07/29/17 14:47 Urine Bilirubin Neg (Negative) 07/29/17 14:47 Urine Urobilinogen 2.0 mg/dL (<2.0) 07/29/17 14:47 Ur Leukocyte Esterase Neg (Negative) 07/29/17 14:47 Urine WBC (Auto) 2.0 /HPF (0.0-6.0) 07/29/17 14:47 Urine RBC (Auto) 6.0 /HPF (0.0-6.0) 07/29/17 14:47 U Epithel Cells (Auto) 1.0 /HPF (0-13.0) 07/29/17 14:47 Urine Bacteria (Auto) 1+ /HPF (Negative) 07/29/17 14:47 Urine Mucus Few /HPF 07/29/17 14:47 Hepatitis A IgM Ab Non-reactive (NonReactive) 07/30/17 13:04 Hep Bs Antigen Non-reactive (Negative) 07/30/17 13:04 Hep B Core IgM Ab Non-reactive (NonReactive) 07/30/17 13:04 Hepatitis C Antibody Non-reactive (NonReactive) 07/30/17 13:04
--- NOTE | 2017-08-05 15:39 | Progress Note ---
Assessment and Plan Impression * Acute Renal insufficiency on chronic kidney disease * Congestive heart failure * Peripheral edema * Mild hyperkalemia * History of hypertension * History of gout * Elevated transaminases level * Microhematuria * scrotal cellulitis Recommendations * HD prn for volume control, s/p 2 treatments * monitor mental status--do not think he is uremic--?baseline * hold hd today * continue aggressive diuresis--iv and po * continue iv abx for scrotal cellulitis * daily lytes * Patient's urine does showed a few red cells but no significant dipstick protein. need to consider ATN and other causes of acute kidney injury * renal ultrasound is essentially normal. No hydronephrosis * Patient is clinically volume overloaded. Continue intravenous loop diuretic * Avoid nephrotoxins * Continue to hold his JOSE ALEJANDRO inhibitor for now * urology following and scrotal wound and cellulitis * pt to eval and treat * no ready for dc today * may need rehab placement * unsure if she need correction hd as of yet--will hold again today Subjective Date of service: 08/05/17 Principal diagnosis: CHF cellulitis LLE Interval history: Patient is somewhat lethargic. Appears comfortable. Objective - Exam Narrative Exam: General appearance: well-developed, well-nourished, appears stated age EENT: PERRL, mucous membranes moist Neck: no JVD, no thyromegaly, no carotid bruit, supple Respiratory: Present: Decreased Breath Sounds (at the bases) Cardiology: regular, normal heart rate, S1S2, no murmurs Gastrointestinal: normal, normoactive bowel sounds Integumentary: other (2+ edema) - Vital Signs Vital signs: Vital Signs - 12hr 08/05/17 08/05/17 08/05/17 06:00 06:52 07:00 Temperature 98.3 F Pulse Rate 78 70 Respiratory Rate Blood Pressure 158/69 O2 Sat by Pulse 92 Oximetry 08/05/17 08/05/17 08/05/17 08:47 09:18 10:00 Temperature 98.5 F Pulse Rate 70 Respiratory 20 Rate Blood Pressure 144/61 O2 Sat by Pulse 99 Oximetry - Lab 07/30/17 08:29 08/05/17 05:36 Most recent lab results Calcium 8.0 mg/dL (8.4-10.2) L 08/05/17 05:36 Phosphorus 4.10 mg/dL (2.5-4.5) 07/29/17 07:28 Magnesium 2.50 mg/dL (1.7-2.3) H 07/29/17 07:28
[2017-08-05] MEDS: COUMADIN PO SCH (17:13)
[2017-08-05] MEDS: BUMEX IV SCH (17:14)
[2017-08-05] MEDS: THERMAZENE 50 GRAM TP SCH ×3 (17:15→21:54)
[2017-08-05] MEDS ORDERED: CEFTIN PO SCH (22:00)
[2017-08-06] MEDS: PERCOCET 5/325 PO PRN ×2 (05:47→13:14)
[2017-08-06] MEDS: APRESOLINE PO SCH ×3 (05:48→23:00)
[2017-08-06] MEDS: BUMEX IV SCH ×3 (05:49→17:21)
[2017-08-06] MEDS: ceFAZolin 1 GM in NACL 0.9% 20 ML IV SCH ×3 (05:49→22:30)
[2017-08-06 06:39] LABS: INR 1.34 (0.87-1.13)
[2017-08-06 06:48] LABS: Calcium 8.1 mg/dL (8.4-10.2); Chloride 99.6 mmol/L (98-107); Magnesium 1.8 mg/dL (1.7-2.3); Phosphorous 3.2 mg/dL (2.5-4.5); Potassium 4.3 mmol/L (3.6-5.0)
[2017-08-06] MEDS: PEPCID PO SCH ×2 (09:55→23:00)
[2017-08-06] MEDS: ZAROXOLYN PO SCH (09:56)
[2017-08-06] MEDS: ZYLOPRIM PO SCH (09:56)
[2017-08-06] MEDS: THERMAZENE 50 GRAM TP SCH (09:57)
--- NOTE | 2017-08-06 10:13 | Progress Note ---
Assessment and Plan Assessment and plan: 82 y/o AAM Obese with PMH significant for HTN Gout and CHF comes in for increased weight of about 30 Lbs, Sob on minimal exertion and increasing swelling of both lower extremities He is more concerned with his left leg which has become red and painful over the last week. However he also complains of substantial edema to involve both lower extremities and his scrotum. He complains of shortness of breath on exertion and somewhat at rest. He has been taking Lasix and lisinopril.Also orthopnea present.No Chest pain or palpitations. CKD HD today, TTS schedule Renal function continues to improve Nephrology following Scrotal cellulitis with possible L epididymitis Scrotal support Testicular doppler revealed hydrocele and possible epididymitis Urology following - recommends continued Ancef and silvadene creme Cellulitis of left leg Blood cultures taken shows no growth Pt on IV cefazolin Acute Diastolic Heart Failure Patient on Bumex Daily weights and Check Echo showed EF of 50-55 Condom catheter to measure urine output HTN (hypertension) Controlled on Hydralazine Anemia of CKD Will continue to monitor - last labs 9.9 Will order CBC Atrial Fibrillation Rate controlled on BB, on Warfarin, monitoring INR Cardiology following Gout Allopurinol DVT prophylaxis SCD Heparin started History Interval history: Patient is sitting in wheelchair with family in room. He denies CP, SOB, NV. He complains of L leg pain which has removed from yesterday Hospitalist Physical - Constitutional Vitals: Temp Pulse Resp BP Pulse Ox 98.5 F 48 L 20 129/50 100 08/06/17 08:16 08/06/17 08:16 08/06/17 08:16 08/06/17 08:16 08/06/17 09:53 General appearance: Present: no acute distress - EENT Eyes: Present: PERRL, EOM intact ENT: hearing intact, clear oral mucosa - Neck Neck: Present: supple, normal ROM - Respiratory Respiratory effort: normal Respiratory: bilateral: CTA - Cardiovascular Rhythm: regular Heart Sounds: Present: S1 & S2 - Extremities Extremities: no ischemia, No edema Peripheral Pulses: within normal limits - Abdominal General gastrointestinal: soft, non-tender - Integumentary Integumentary: Present: clear, warm - Psychiatric Psychiatric: appropriate mood/affect, cooperative - Neurologic Neurologic: CNII-XII intact, moves all extremities - Allied Health Allied health notes reviewed: nursing Results - Labs CBC & Chem 7: 07/30/17 08:29 08/06/17 05:56 Labs: Laboratory Last Values WBC 6.8 K/mm3 (4.5-11.0) 07/30/17 08:29 RBC 3.36 M/mm3 (3.65-5.03) L 07/30/17 08:29 Hgb 9.9 gm/dl (11.8-15.2) L 07/30/17 08: Hct 31.6 % (35.5-45.6) L 07/30/17 08:29 MCV 94 fl (84-94) 07/30/17 08: MCH 29 pg (28-32) 07/30/17 08: MCHC 31 % (32-34) L 07/30/17 08: RDW 17.9 % (13.2-15.2) H 07/30/17 08:29 Plt Count 163 K/mm3 (140-440) 07/30/17 08:29 Lymph % (Auto) 4.3 % (13.4-35.0) L 07/30/17 08:29 [place] % (Auto) 9.3 % (0.0-7.3) H 07/30/17 08:29 Eos % (Auto) 1.0 % (0.0-4.3) 07/30/17 08: Baso % (Auto) 0.1 % (0.0-1.8) 07/30/17 08:29 Lymph # 0.3 K/mm3 (1.2-5.4) L 07/30/17 08:29 Brown # 0.6 K/mm3 (0.0-0.8) 07/30/17 08:29 Eos # 0.1 K/mm3 (0.0-0.4) 07/30/17 08:29 Baso # 0.0 K/mm3 (0.0-0.1) 07/30/17 08: Seg Neutrophils % 85.3 % (40.0-70.0) H 07/30/17 08: Seg Neutrophils # 5.8 K/mm3 (1.8-7.7) 07/30/17 08: PT 17.3 Sec. (12.2-14.9) H 08/06/17 05:56 INR 1.34 (0.87-1.13) H 08/06/17 05:56 D-Dimer 683.47 ng/mlDDU (0-234) H 07/29/17 07:28 POC ABG pH 7.276 (7.35-7.45) L 07/30/17 10:20 POC ABG pCO2 47.3 (35-45) H 07/30/17 10:20 POC ABG pO2 75 (80-105) L 07/30/17 10:20 POC ABG HCO3 22.0 07/30/17 10:20 POC ABG Total CO2 23 07/30/17 10:20 POC ABG O2 Sat 93 07/30/17 10:20 POC ABG Base Excess -5 07/30/17 10:20 FiO2 6 % 07/30/17 10:20 Sodium 141 mmol/L (137-145) 08/06/17 05:56 Potassium 4.3 mmol/L (3.6-5.0) 08/06/17 05:56 Chloride 99.6 mmol/L (98-107) 08/06/17 05:56 Carbon Dioxide 30 mmol/L (22-30) 08/06/17 05:56 Anion Gap 16 mmol/L 08/06/17 05:56 BUN 36 mg/dL (9-20) H 08/06/17 05:56 Creatinine 1.4 mg/dL (0.8-1.5) 08/06/17 05:56 Estimated GFR 59 ml/min 08/06/17 05:56 BUN/Creatinine Ratio 26 % 08/06/17 05:56 Glucose 100 mg/dL (75-100) 08/06/17 05:56 Hemoglobin A1c 5.6 % (4-6) 07/29/17 Unknown Lactic Acid 1.50 mmol/L (0.7-2.0) 07/29/17 10:05 Calcium 8.1 mg/dL (8.4-10.2) L 08/06/17 05:56 Phosphorus 3.20 mg/dL (2.5-4.5) 08/06/17 05:56 Magnesium 1.80 mg/dL (1.7-2.3) 08/06/17 05:56 Iron 25 ug/dL (49-181) L 07/30/17 08:29 TIBC 141 mcg/dL (250-450) L 07/30/17 08:29 % Saturation 17.73 % 07/30/17 08:29 Transferrin 133 mg/dl (180-329) L 07/30/17 08:29 Total Bilirubin 0.70 mg/dL (0.1-1.2) 07/30/17 08:29 AST 46 units/L (5-40) H 07/30/17 08:29 ALT 28 units/L (7-56) 07/30/17 08:29 Alkaline Phosphatase 134 units/L (35-129) H 07/30/17 08:29 Ammonia 32.0 umol/L (25-60) 07/30/17 13:04 Total Creatine Kinase 451 units/L (55-170) H 07/29/17 07:28 CK-MB (CK-2) 5.5 ng/mL (0.0-4.0) H 07/29/17 07:28 CK-MB (CK-2) Rel Index 1.2 (0-4) 07/29/17 07:28 Troponin T 0.083 ng/mL (0.00-0.029) H 07/30/17 18:24 NT-Pro-B Natriuret Pep 98345 pg/mL (0-900) H 07/29/17 07:28 Total Protein 7.8 g/dL (6.3-8.2) 07/30/17 08:29 Albumin 2.6 g/dL (3.9-5) L 07/30/17 08:29 Albumin/Globulin Ratio 0.5 % 07/30/17 08:29 Triglycerides 75 mg/dL (2-149) 07/29/17 07:28 Cholesterol 78 mg/dL (50-199) 07/29/17 07:28 LDL Cholesterol Direct 48 mg/dL (50-130) L 07/29/17 07:28 HDL Cholesterol 15 mg/dL (40-59) L 07/29/17 07:28 Cholesterol/HDL Ratio 5.20 % 07/29/17 07:28 Vitamin B12 > 2000 pg/mL (211-911) H 07/30/17 13:04 Urine Color Yellow (Yellow) 07/29/17 14:47 Urine Turbidity Clear (Clear) 07/29/17 14:47 Urine pH 5.0 (5.0-7.0) 07/29/17 14:47 Ur Specific [place] 1.013 (1.003-1.030) 07/29/17 14:47 Urine Protein <15 mg/dl mg/dL (Negative) 07/29/17 14:47 Urine Glucose (UA) Neg mg/dL (Negative) 07/29/17 14:47 Urine Ketones Neg mg/dL (Negative) 07/29/17 14:47 Urine Blood Mod (Negative) 07/29/17 14:47 Urine Nitrite Neg (Negative) 07/29/17 14:47 Urine Bilirubin Neg (Negative) 07/29/17 14:47 Urine Urobilinogen 2.0 mg/dL (<2.0) 07/29/17 14:47 Ur Leukocyte Esterase Neg (Negative) 07/29/17 14:47 Urine WBC (Auto) 2.0 /HPF (0.0-6.0) 07/29/17 14:47 Urine RBC (Auto) 6.0 /HPF (0.0-6.0) 07/29/17 14:47 U Epithel Cells (Auto) 1.0 /HPF (0-13.0) 07/29/17 14:47 Urine Bacteria (Auto) 1+ /HPF (Negative) 07/29/17 14:47 Urine Mucus Few /HPF 07/29/17 14:47 Hepatitis A IgM Ab Non-reactive (NonReactive) 07/30/17 13:04 Hep Bs Antigen Non-reactive (Negative) 07/30/17 13:04 Hep B Core IgM Ab Non-reactive (NonReactive) 07/30/17 13:04 Hepatitis C Antibody Non-reactive (NonReactive) 07/30/17 13:04
--- NOTE | 2017-08-06 14:55 | Progress Note ---
Assessment and Plan Impression * Nonoliguric acute kidney injury --Previously on HD for volume control; s/p HD x 2 treatments --Renal u/s without hydronephrosis * Scrotal cellulitis * Congestive heart failure * Peripheral edema * Mild hyperkalemia, resolved * Hypertension Recommendations * Continue to hold HD * Continue IV diuresis as patient still with edema to thighs * IV abx per urology - Ancef * Avoid nephrotoxins * Continue to hold his JOSE ALEJANDRO inhibitor for now * Strict I/O * Patient is not yet stable for d/c as he requires IV diuresis Subjective Date of service: 08/06/17 Principal diagnosis: CHF cellulitis LLE Interval history: Patient has no complaints. Objective - Vital Signs Vital signs: Vital Signs - 12hr 08/06/17 08/06/17 08/06/17 04:47 05:48 08:16 Temperature 98.2 F 98.5 F Pulse Rate 54 L 54 L 48 L Respiratory 18 20 Rate Blood Pressure 153/75 153/75 129/50 Blood Pressure [Left] O2 Sat by Pulse 99 100 Oximetry 08/06/17 08/06/17 08/06/17 09:53 10:00 13:09 Temperature 97.3 F L Pulse Rate 57 L 55 L Respiratory 16 Rate Blood Pressure Blood Pressure 118/55 [Left] O2 Sat by Pulse 100 100 Oximetry 08/06/17 13:14 Temperature Pulse Rate 55 L Respiratory Rate Blood Pressure 118/55 Blood Pressure [Left] O2 Sat by Pulse Oximetry - General Appearance General appearance: well-developed, well-nourished EENT: ATNC Respiratory: Present: Decreased Breath Sounds Cardiology: regular, S1S2 Gastrointestinal: normal, no tenderness, no distended Neurologic: no focal deficit Musculoskeletal: other (bilateral LE edema to thigh left>right) Psychiatric: mood/affect appropriate, cooperative - Lab 07/30/17 08:29 08/06/17 05:56 Most recent lab results Calcium 8.1 mg/dL (8.4-10.2) L 08/06/17 05:56 Phosphorus 3.20 mg/dL (2.5-4.5) 08/06/17 05:56 Magnesium 1.80 mg/dL (1.7-2.3) 08/06/17 05:56
[2017-08-06] MEDS: COUMADIN PO SCH (17:20)
[2017-08-07 06:53] LABS: INR 1.23 (0.87-1.13)
[2017-08-07 07:02] LABS: Calcium 8.2 mg/dL (8.4-10.2); Chloride 97.1 mmol/L (98-107); Potassium 4.3 mmol/L (3.6-5.0)
[2017-08-07] MEDS: ZAROXOLYN PO SCH (11:00)
[2017-08-07] MEDS: PEPCID PO SCH ×2 (11:00→22:22)
[2017-08-07] MEDS: BUMEX IV SCH ×3 (11:00→22:24)
[2017-08-07] MEDS: ZYLOPRIM PO SCH (11:00)
[2017-08-07] MEDS: THERMAZENE 50 GRAM TP SCH ×2 (11:01→22:00)
[2017-08-07] MEDS: ceFAZolin 1 GM in NACL 0.9% 20 ML IV SCH ×2 (15:08→22:30)
[2017-08-07] MEDS: PERCOCET 5/325 PO PRN ×2 (15:09→22:25)
[2017-08-07] MEDS: APRESOLINE PO SCH ×2 (15:10→22:23)
--- NOTE | 2017-08-07 16:29 | Progress Note ---
Assessment and Plan Assessment and plan: 82 y/o AAM Obese with PMH significant for HTN Gout and CHF comes in for increased weight of about 30 Lbs, Sob on minimal exertion and increasing swelling of both lower extremities and scrotum agent is on diuretics --H/O Chronic kidney disease on hemodialysis Renal function significantly improved, off HD however patient has fluid overload, Generalized anasarca Continue IV diuretics, input output monitoring, daily weights Nephrology following --Scrotal edema/cellulitis; urology evaluated the patient Continue IV Ancef, supportive care --Lower extremity cellulitis/edema Elevate the limb, IV antibiotics, supportive care --Acute on chronic Diastolic congestive heart failure LVEF 50-55%, new Bumex, daily weights --Hypertension; moderate control, continue current antihypertensives When necessary hydralazine --H/O atrial fibrillation; rate controlled : Beta blockers, chronic anticoagulation with Coumadin, subtherapeutic INR --History of gout; continue allopurinol and supportive care --Morbid obesity; increase weight partly secondary to fluid overload Counseling done --DVT prophylaxis; patient already on Coumadin, SCD --full code Consults and recommendations noted and appreciated. DC planning. Case management; possible home with home health when medically stable Plan of care discussed with the patient and his nurse History Interval history: Patient seen and evaluated in his room medical records reviewed Complaints of mild shortness of breath, denies chest pain Alert awake and responding appropriately Vital signs reviewed Hospitalist Physical - Constitutional Vitals: Temp Pulse Resp BP Pulse Ox 99.1 F 65 20 143/62 96 08/07/17 15:12 08/07/17 15:12 08/07/17 15:12 08/07/17 15:12 08/07/17 15:12 General appearance: Present: no acute distress, well-nourished, obese, other ( edematous) - EENT Eyes: Present: PERRL, EOM intact - Neck Neck: Present: supple, normal ROM - Respiratory Respiratory effort: labored Respiratory: bilateral: diminished, rhonchi, negative: rales, wheezing - Cardiovascular Rhythm: regular Heart Sounds: Present: S1 & S2 - Extremities Extremities: no ischemia, normal temperature Extremity abnormal: edema - Abdominal General gastrointestinal: soft, non-tender, non-distended, normal bowel sounds - Integumentary Integumentary: Present: clear, warm - Psychiatric Psychiatric: appropriate mood/affect, cooperative - Neurologic Neurologic: CNII-XII intact, moves all extremities Results - Labs CBC & Chem 7: 07/30/17 08:29 08/07/17 06:01 Labs: Laboratory Last Values WBC 6.8 K/mm3 (4.5-11.0) 07/30/17 08:29 RBC 3.36 M/mm3 (3.65-5.03) L 07/30/17 08: Hgb 9.9 gm/dl (11.8-15.2) L 07/30/17 08: Hct 31.6 % (35.5-45.6) L 07/30/17 08: MCV 94 fl (84-94) 07/30/17 08: MCH 29 pg (28-32) 07/30/17 08: MCHC 31 % (32-34) L 07/30/17 08: RDW 17.9 % (13.2-15.2) H 07/30/17 08:29 Plt Count 163 K/mm3 (140-440) 07/30/17 08:29 Lymph % (Auto) 4.3 % (13.4-35.0) L 07/30/17 08:29 [place] % (Auto) 9.3 % (0.0-7.3) H 07/30/17 08: Eos % (Auto) 1.0 % (0.0-4.3) 07/30/17 08: Baso % (Auto) 0.1 % (0.0-1.8) 07/30/17 08: Lymph # 0.3 K/mm3 (1.2-5.4) L 07/30/17 08:29 [place] # 0.6 K/mm3 (0.0-0.8) 07/30/17 08:29 Eos # 0.1 K/mm3 (0.0-0.4) 07/30/17 08: Baso # 0.0 K/mm3 (0.0-0.1) 07/30/17 08:29 Seg Neutrophils % 85.3 % (40.0-70.0) H 07/30/17 08: Seg Neutrophils # 5.8 K/mm3 (1.8-7.7) 07/30/17 08:29 PT 16.2 Sec. (12.2-14.9) H 08/07/17 06:01 INR 1.23 (0.87-1.13) H 08/07/17 06:01 D-Dimer 683.47 ng/mlDDU (0-234) H 07/29/17 07:28 POC ABG pH 7.276 (7.35-7.45) L 07/30/17 10:20 POC ABG pCO2 47.3 (35-45) H 07/30/17 10:20 POC ABG pO2 75 (80-105) L 07/30/17 10:20 POC ABG HCO3 22.0 07/30/17 10:20 POC ABG Total CO2 23 07/30/17 10:20 POC ABG O2 Sat 93 07/30/17 10:20 POC ABG Base Excess -5 07/30/17 10:20 FiO2 6 % 07/30/17 10:20 Sodium 138 mmol/L (137-145) 08/07/17 06:01 Potassium 4.3 mmol/L (3.6-5.0) 08/07/17 06:01 Chloride 97.1 mmol/L (98-107) L 08/07/17 06:01 Carbon Dioxide 32 mmol/L (22-30) H 08/07/17 06:01 Anion Gap 13 mmol/L 08/07/17 06:01 BUN 35 mg/dL (9-20) H 08/07/17 06:01 Creatinine 1.4 mg/dL (0.8-1.5) 08/07/17 06:01 Estimated GFR 59 ml/min 08/07/17 06:01 BUN/Creatinine Ratio 25 % 08/07/17 06:01 Glucose 95 mg/dL (75-100) 08/07/17 06:01 Hemoglobin A1c 5.6 % (4-6) 07/29/17 Unknown Lactic Acid 1.50 mmol/L (0.7-2.0) 07/29/17 10:05 Calcium 8.2 mg/dL (8.4-10.2) L 08/07/17 06:01 Phosphorus 3.20 mg/dL (2.5-4.5) 08/06/17 05:56 Magnesium 1.80 mg/dL (1.7-2.3) 08/06/17 05:56 Iron 25 ug/dL (49-181) L 07/30/17 08:29 TIBC 141 mcg/dL (250-450) L 07/30/17 08:29 % Saturation 17.73 % 07/30/17 08:29 Transferrin 133 mg/dl (180-329) L 07/30/17 08:29 Total Bilirubin 0.70 mg/dL (0.1-1.2) 07/30/17 08:29 AST 46 units/L (5-40) H 07/30/17 08:29 ALT 28 units/L (7-56) 07/30/17 08:29 Alkaline Phosphatase 134 units/L (35-129) H 07/30/17 08:29 Ammonia 32.0 umol/L (25-60) 07/30/17 13:04 Total Creatine Kinase 451 units/L (55-170) H 07/29/17 07:28 CK-MB (CK-2) 5.5 ng/mL (0.0-4.0) H 07/29/17 07:28 CK-MB (CK-2) Rel Index 1.2 (0-4) 07/29/17 07:28 Troponin T 0.083 ng/mL (0.00-0.029) H 07/30/17 18:24 NT-Pro-B Natriuret Pep 28060 pg/mL (0-900) H 07/29/17 07:28 Total Protein 7.8 g/dL (6.3-8.2) 07/30/17 08:29 Albumin 2.6 g/dL (3.9-5) L 07/30/17 08:29 Albumin/Globulin Ratio 0.5 % 07/30/17 08:29 Triglycerides 75 mg/dL (2-149) 07/29/17 07:28 Cholesterol 78 mg/dL (50-199) 07/29/17 07:28 LDL Cholesterol Direct 48 mg/dL (50-130) L 07/29/17 07:28 HDL Cholesterol 15 mg/dL (40-59) L 07/29/17 07:28 Cholesterol/HDL Ratio 5.20 % 07/29/17 07:28 Vitamin B12 > 2000 pg/mL (211-911) H 07/30/17 13:04 Urine Color Yellow (Yellow) 07/29/17 14:47 Urine Turbidity Clear (Clear) 07/29/17 14:47 Urine pH 5.0 (5.0-7.0) 07/29/17 14:47 Ur Specific [place] 1.013 (1.003-1.030) 07/29/17 14:47 Urine Protein <15 mg/dl mg/dL (Negative) 07/29/17 14:47 Urine Glucose (UA) Neg mg/dL (Negative) 07/29/17 14:47 Urine Ketones Neg mg/dL (Negative) 07/29/17 14:47 Urine Blood Mod (Negative) 07/29/17 14:47 Urine Nitrite Neg (Negative) 07/29/17 14:47 Urine Bilirubin Neg (Negative) 07/29/17 14:47 Urine Urobilinogen 2.0 mg/dL (<2.0) 07/29/17 14:47 Ur Leukocyte Esterase Neg (Negative) 07/29/17 14:47 Urine WBC (Auto) 2.0 /HPF (0.0-6.0) 07/29/17 14:47 Urine RBC (Auto) 6.0 /HPF (0.0-6.0) 07/29/17 14:47 U Epithel Cells (Auto) 1.0 /HPF (0-13.0) 07/29/17 14:47 Urine Bacteria (Auto) 1+ /HPF (Negative) 07/29/17 14:47 Urine Mucus Few /HPF 07/29/17 14:47 Hepatitis A IgM Ab Non-reactive (NonReactive) 07/30/17 13:04 Hep Bs Antigen Non-reactive (Negative) 07/30/17 13:04 Hep B Core IgM Ab Non-reactive (NonReactive) 07/30/17 13:04 Hepatitis C Antibody Non-reactive (NonReactive) 07/30/17 13:04
--- NOTE | 2017-08-07 17:45 | Progress Note ---
Assessment and Plan Impression * Nonoliguric acute kidney injury --Previously on HD for volume control; s/p HD x 2 treatments --Renal u/s without hydronephrosis * Scrotal cellulitis * Atrial fibrillation * Congestive heart failure * Peripheral edema * Mild hyperkalemia, resolved * Hypertension Recommendations * Continue to hold HD * Continue IV diuresis as patient still with edema to thighs * IV abx per urology - Ancef * Anticoagulation per caridiology/primary team * Wean supplemental oxygen * Anticipate patient to be ready, from a renal standpoint, for d/c tomorrow on Bumex 1mg po BID (no metolazone); abx per primary team/urology; coumadin per cardiology Subjective Date of service: 08/07/17 Principal diagnosis: CHF cellulitis LLE Interval history: Patient denies SOB with ambulation. Reports left leg pain with ambulation Objective - Vital Signs Vital signs: Vital Signs - 12hr 08/07/17 08/07/17 08/07/17 07:40 10:00 15:09 Temperature 98.4 F Pulse Rate 66 71 Pulse Rate [ 71 Apical] Respiratory 20 18 Rate Blood Pressure Blood Pressure 142/73 [Right] O2 Sat by Pulse 100 100 Oximetry 08/07/17 08/07/17 15:10 15:12 Temperature 99.1 F Pulse Rate 65 71 Pulse Rate [ Apical] Respiratory 20 Rate Blood Pressure 143/62 Blood Pressure 143/62 [Right] O2 Sat by Pulse 96 Oximetry - General Appearance General appearance: well-developed, well-nourished EENT: ATNC Respiratory: Present: Clear to Ascultation Cardiology: regular, S1S2 Gastrointestinal: normal, no tenderness, no distended Integumentary: other (left LE erythema, edema, warm) Musculoskeletal: other (+ edema) Psychiatric: cooperative - Lab 07/30/17 08:29 08/07/17 06:01 Most recent lab results Calcium 8.2 mg/dL (8.4-10.2) L 08/07/17 06:01 Phosphorus 3.20 mg/dL (2.5-4.5) 08/06/17 05:56 Magnesium 1.80 mg/dL (1.7-2.3) 08/06/17 05:56
[2017-08-07] MEDS: COUMADIN PO SCH ×2 (19:04)
[2017-08-08] MEDS: THERMAZENE 50 GRAM TP SCH ×2 (02:24→11:17)
[2017-08-08] MEDS: APRESOLINE PO SCH (06:00)
[2017-08-08] MEDS: BUMEX IV SCH ×2 (06:29→19:44)
[2017-08-08] MEDS: PERCOCET 5/325 PO PRN (06:31)
[2017-08-08] MEDS: ceFAZolin 1 GM in NACL 0.9% 20 ML IV SCH (06:37)
[2017-08-08 08:27] LABS: Hematocrit 28.3 % (35.5-45.6); Hemoglobin 9.4 gm/dl (11.8-15.2); Mean Corpuscular HGB Conc 33 % (32-34); Mean Corpuscular Hemoglobin 30 pg (28-32); Mean Corpuscular Volume 92 fl (84-94); Red Blood Count 3.09 M/mm3 (3.65-5.03); Red Cell Distribution Width 17.2 % (13.2-15.2); White Blood Count 5.5 K/mm3 (4.5-11.0)
[2017-08-08 08:36] LABS: INR 1.37 (0.87-1.13)
[2017-08-08 08:37] LABS: Basophils % (Auto) 0.8 % (0.0-1.8); Eosinophils % (Auto) 3.2 % (0.0-4.3); Platelet Count 219 K/mm3 (140-440)
[2017-08-08 08:41] LABS: Anion Gap 14 mmol/L; BUN/Creatinine Ratio 28; Blood Urea Nitrogen 33 mg/dL (9-20); Carbon Dioxide 32 mmol/L (22-30); Chloride 96.2 mmol/L (98-107); Glucose 93 mg/dL (75-100); Potassium 4.6 mmol/L (3.6-5.0); Sodium 138 mmol/L (137-145)
[2017-08-08] MEDS: ZYLOPRIM PO SCH (11:16)
[2017-08-08] MEDS: PEPCID PO SCH (11:17)
[2017-08-08] MEDS: ZAROXOLYN PO SCH (11:17)
--- NOTE | 2017-08-08 14:41 | Progress Note ---
Assessment and Plan Impression * Nonoliguric acute kidney injury --Previously on HD for volume control; s/p HD x 2 treatments --Renal u/s without hydronephrosis * Scrotal cellulitis * Atrial fibrillation * Congestive heart failure * Peripheral edema * Mild hyperkalemia, resolved * Hypertension Recommendations * Continue to hold HD * IV abx per urology - Ancef * Anticoagulation per cardiology/primary team * Wean supplemental oxygen - remains on 1.5L * Remove supplement oxygen, if O2sats are stable, okay to d/c home w/ Bumex 1mg po BID (no metolazone); abx per primary team/urology; coumadin per cardiology * Okay to d/c to home with permcath - will arrange removal if volume status stable as an outpatient Subjective Date of service: 08/08/17 Principal diagnosis: CHF cellulitis LLE Interval history: Patient has no complaints - he remains on 1.5L [place] oxygen Objective - Vital Signs Vital signs: Vital Signs - 12hr 08/08/17 08/08/17 08/08/17 06:49 07:47 08:58 Temperature 97.6 F 99.0 F Pulse Rate 56 L 56 L Respiratory 18 20 Rate Blood Pressure 143/69 119/54 O2 Sat by Pulse 96 97 97 Oximetry - General Appearance General appearance: well-developed, well-nourished EENT: ATNC Cardiology: regular, S1S2 Gastrointestinal: normal Neurologic: alert and oriented x3 Musculoskeletal: other (LLE edema/erythema; right LE trace-1+; no thigh edema) Psychiatric: cooperative - Lab 08/08/17 07:54 08/08/17 07:54 Most recent lab results Calcium 8.0 mg/dL (8.4-10.2) L 08/08/17 07:54 Phosphorus 3.20 mg/dL (2.5-4.5) 08/06/17 05:56 Magnesium 1.80 mg/dL (1.7-2.3) 08/06/17 05:56
--- NOTE | 2017-08-08 14:49 | Progress Note ---
Assessment and Plan - Patient Problems (1) Cellulitis of left leg Status: Acute Plan to address problem: Patient started on Clindamycin for possible Staph cellulitis (2) CKD (chronic kidney disease) Status: Acute Qualifiers: Chronic kidney disease stage: stage 5, not on chronic dialysis Qualified Code(s): N18.5 - Chronic kidney disease, stage 5 Plan to address problem: For vascath tomorrow (3) Acute exacerbation of CHF (congestive heart failure) Status: Acute Qualifiers: Congestive heart failure type: combined Qualified Code(s): I50.43 - Acute on chronic combined systolic (congestive) and diastolic (congestive) heart failure Plan to address problem: Patient initiated on IV lAsix and Kcl Daily weights and Check Echo[place] [id number] (4) HTN (hypertension) Status: Chronic Qualifiers: Hypertension type: essential hypertension Qualified Code(s): I10 - Essential (primary) hypertension Plan to address problem: Cont Hydralazine (5) Morbid obesity with BMI of 50.0-59.9, adult Status: Chronic Plan to address problem: Counseled about weight loss requirements (6) Anemia Status: Chronic Qualifiers: Anemia type: iron deficiency Plan to address problem: Check Iron b12 and folic acid (7) DVT prophylaxis Status: Acute Plan to address problem: On lovenox Subjective Date of service: 08/08/17 Principal diagnosis: CHF cellulitis LLE Interval history: Improving Objective - Exam Narrative Exam: In slight distress - Constitutional Vitals: Vital Signs - 12hr 08/08/17 08/08/17 08/08/17 06:49 07:47 08:58 Temperature 97.6 F 99.0 F Pulse Rate 56 L 56 L Respiratory 18 20 Rate Blood Pressure 143/69 119/54 O2 Sat by Pulse 96 97 97 Oximetry General appearance: Present: no acute distress, well-nourished - EENT Eyes: PERRL, EOM intact ENT: hearing intact, clear oral mucosa Ears: bilateral: normal - Neck Neck: supple, normal ROM - Respiratory Respiratory effort: normal Respiratory: bilateral: CTA - Breasts Breasts: normal - Cardiovascular Rhythm: regular Heart Sounds: Present: S1 & S2. Absent: gallop, rub Extremities: pulses intact, No edema, normal color, Full ROM - Gastrointestinal General gastrointestinal: Present: soft, non-tender, non-distended, normal bowel sounds - Genitourinary Male genitourinary: normal - Integumentary Integumentary: clear, warm, dry - Musculoskeletal Musculoskeletal: 1, strength equal bilaterally - Neurologic Neurologic: moves all extremities - Psychiatric Psychiatric: memory intact, appropriate mood/affect, intact judgment & insight - Labs CBC & Chem 7: 08/08/17 07:54 08/09/17 06:40 Labs: Abnormal lab results 08/08/17 08/08/17 08/08/17 Range/Units 07:54 07:54 07:54 RBC 3.09 L (3.65-5.03) M/mm3 Hgb 9.4 L (11.8-15.2) gm/dl Hct 28.3 L (35.5-45.6) % RDW 17.2 H (13.2-15.2) % Lymph % (Auto) 10.7 L (13.4-35.0) % [place] % (Auto) 11.3 H (0.0-7.3) % Lymph # 0.6 L (1.2-5.4) K/mm3 Seg Neutrophils % 74.0 H (40.0-70.0) % PT 17.6 H (12.2-14.9) Sec. INR 1.37 H (0.87-1.13) Chloride 96.2 L (98-107) mmol/L Carbon Dioxide 32 H (22-30) mmol/L BUN 33 H (9-20) mg/dL Calcium 8.0 L (8.4-10.2) mg/dL
[2017-08-08] MEDS: COUMADIN PO SCH ×2 (19:44)
[2017-08-09 07:12] LABS: Anion Gap 14 mmol/L; BUN/Creatinine Ratio 27; Blood Urea Nitrogen 32 mg/dL (9-20); Calcium 8.3 mg/dL (8.4-10.2); Carbon Dioxide 32 mmol/L (22-30); Glucose 96 mg/dL (75-100); Potassium 4.8 mmol/L (3.6-5.0); Sodium 140 mmol/L (137-145)
[2017-08-09 07:16] LABS: INR 1.33 (0.87-1.13)
[2017-08-09 07:57] VITALS: BP 143/69
--- NOTE | 2017-08-09 09:11 | Progress Note ---
Subjective Principal diagnosis: CHF cellulitis LLE Interval history: Patient was seen today for follow-up, on many renal related issues Patient currently denies having any symptoms of chest pain pressure shortness of breath Better aware about renal related issues Interdisciplinary notes were reviewed Vitals labs intake and output medications were reviewed from today Allergies: Reviewed Social history: Reviewed Family history: Reviewed Physical examination HEENT: Oral mucosa moist no pharyngeal erythema Neck: Supple no JVD Chest: Clear to auscultation no crackles rales or wheezes Heart: Regular rate and rhythm S1-S2 heard no S3-S4 Abdomen: Soft nontender no renal bruit no CVA tenderness no suprapubic fullness Extremity: Mild edema dry skin no peripheral cyanosis pulses palpable Neurological: Alert awake Musculoskeletal: No joint effusion noted Assessment and plan acute kidney injury currently in remission Ultrasonogram of the kidneys: Unremarkable mild anemia; patient will need follow-up with his primary care physician upon discharge will need a follow-up appointment in the office within a week or 2 Avoid any form of nonsteroidal drugs Labs were discussed with patient explained and simple [place] does have good understanding off renal related issues, Will continue to follow and make recommendation from renal standpoint Objective - Vital Signs Vital signs: Vital Signs - 12hr 08/09/17 08/09/17 03:48 07:53 Temperature 97.9 F 100.2 F H Pulse Rate 70 59 L Respiratory 20 20 Rate Blood Pressure 129/55 143/69 O2 Sat by Pulse 93 95 Oximetry - Lab 08/08/17 07:54 08/09/17 06:40 Most recent lab results Calcium 8.3 mg/dL (8.4-10.2) L 08/09/17 06:40 Phosphorus 3.20 mg/dL (2.5-4.5) 08/06/17 05:56 Magnesium 1.80 mg/dL (1.7-2.3) 08/06/17 05:56
[2017-08-09] MEDS: PEPCID PO SCH (09:27)
[2017-08-09] MEDS: ZYLOPRIM PO SCH (09:27)
[2017-08-09] MEDS: ZAROXOLYN PO SCH (09:27)
[2017-08-09] MEDS: THERMAZENE 50 GRAM TP SCH (09:28)
[2017-08-09] MEDS: PERCOCET 5/325 PO PRN (09:30)
[2017-08-09 13:27] LABS: Albumin 2.7 g/dL (3.8-4.8); Gamma Globulin 2.3 g/dL (0.8-1.7)
[2017-08-09 13:27] LABS: Myeloperoxidase Antibody <1.0 AI (<1.0)
== END 2017-08-09 12:46 | disposition home or self-care (01) | DRG 673 ==
LOC: ED 07:00 → 4A 20:17 → 2B-ACE 08-01 20:51
PROVIDERS: ADMIT Internal Medicine; ATTEND Internal Medicine
PROC: 0JH63XZ Insertion of Tunneled Vascular Access Device into Chest Subcutaneous Tissue and Fascia, Percutaneous Approach (ICD-10-PCS; principal; 2017-08-02)
PROC: B244ZZZ Ultrasonography of Right Heart (ICD-10-PCS; 2017-08-02)
PROC: 02H633Z Insertion of Infusion Device into Right Atrium, Percutaneous Approach (ICD-10-PCS; 2017-08-02)
PROC: 5A1D70Z Performance of Urinary Filtration, Intermittent, Less than 6 Hours Per Day (ICD-10-PCS; 2017-08-02)
PROC: 5A1D70Z Performance of Urinary Filtration, Intermittent, Less than 6 Hours Per Day (ICD-10-PCS; 2017-08-03)
DX: N17.0 Acute kidney failure with tubular necrosis (principal); G93.41 Metabolic encephalopathy; I50.33 Acute on chronic diastolic (congestive) heart failure; I13.0 Hypertensive heart and chronic kidney disease with heart failure and stage 1 through stage 4 chronic kidney disease, or unspecified chronic kidney disease; Z68.43 Body mass index [BMI] 50.0-59.9, adult; L03.116 Cellulitis of left lower limb; I42.0 Dilated cardiomyopathy; E66.01 Morbid (severe) obesity due to excess calories; R79.89 Other specified abnormal findings of blood chemistry; N45.1 Epididymitis; M10.9 Gout, unspecified; I27.22 Pulmonary hypertension due to left heart disease; I27.23 Pulmonary hypertension due to lung diseases and hypoxia; D63.1 Anemia in chronic kidney disease; I48.2 Chronic atrial fibrillation; E87.5 Hyperkalemia; N18.3 Chronic kidney disease, stage 3 (moderate); R31.9 Hematuria, unspecified; Z95.810 Presence of automatic (implantable) cardiac defibrillator; I25.2 Old myocardial infarction; Z95.1 Presence of aortocoronary bypass graft; Z82.49 Family history of ischemic heart disease and other diseases of the circulatory system; Z79.01 Long term (current) use of anticoagulants; I27.81 Cor pulmonale (chronic)
CPT/HCPCS: 36415; 36558; 70450; 71010; 76770; 76937; 77001; 80048; 80053; 80061; 80074; 81001; 82140; 82550; 82553; 82607; 82747; 82803; 83036; 83550; 83735; 83880; 84100; 84165; 84484; 85025; 85379; 85610; 86021; 86038; 86160; 86225; 87040; 93005; 93010; 93306; 93975; 94760; 96365; 96366; C1750; G8978-GP; G8979-GP; J0690; J1170; J1644; J1940; J2270; J2405; J3370; J7030; J7040; J7512

== ENCOUNTER 2019-08-21 12:48 | Emergency (ER) | payer MEDICARE ==
--- NOTE | 2019-08-21 12:59 | Emergency Department Report ---
ED CPR HPI - General Stated Complaint: CARDIAC ARREST Time Seen by Provider: 08/21/19 12:53 Source: EMS Mode of arrival: Stretcher Limitations: Altered Mental Status, Physical Limitation - History of Present Illness Initial Comments: 84-year-old male presents for cardiopulmonary arrest. Patient was last seen sometime yesterdayby family. He lives alone. Family went to check on him today and found him unresponsive at home. Upon EMS arrival patient was on the floor in the bedroom, apneic, pulseless, in asystole. Accu-Chek 77. No improvement with resuscitation efforts and patient remains in asystole upon arrival Complaint: found unresponsive Place: home Initial Findings in the Field: unresponsive, no pulse, systole (asytole) ROSC in the Field: No Associated Injuries: No Treatments Prior to Arrival: intubation (7.0 et tube), chest compressions, epinephrine mgs # (3), other (narcane) - Related Data Home Medications Medication Instructions Recorded Confirmed Last Taken Allopurinol 300 mg PO DAILY 02/24/16 07/29/17 07/28/17 Colchicine 0.6 mg PO DAILY 02/24/16 07/29/17 07/28/17 Furosemide 20 mg PO DAILY 02/24/16 07/29/17 07/28/17 Hydralazine HCl [Apresoline TAB] 50 mg PO DAILY 02/24/16 07/29/17 07/28/17 Amlodipine Besylate [Norvasc] 10 mg PO QDAY 07/29/17 07/29/17 07/28/17 traMADoL [Ultram 50 MG tab] 50 mg PO Q6HR PRN 07/29/17 07/29/17 Unknown Previous Rx's Medication Instructions Recorded Last Taken Type Bumetanide [Bumex INJ] 1 mg PO Q12H 30 Days tab 08/09/17 Unknown Rx Clindamycin [Clindamycin CAP] 300 mg PO Q6H 10 Days capsule 08/09/17 Unknown Rx SILVER sulfADIAZINE 50 GRAM 1 applic TP BID #1 tube 08/09/17 Unknown Rx [Thermazene 50 Gram] Warfarin [Coumadin] 3 mg PO DAILY@1700 #30 tablet 08/09/17 Unknown Rx metOLazone [Zaroxolyn] 2.5 mg PO QDAY 30 Days tablet 08/09/17 Unknown Rx oxyCODONE /ACETAMINOPHEN [Percocet 1 tab PO Q6H PRN #20 tablet 08/09/17 Unknown Rx 5/325 mg] Allergies Allergy/AdvReac Type Severity Reaction Status Date / Time No Known Allergies Allergy Verified 02/24/16 11:14 ED Review of Systems ROS: Stated complaint: CARDIAC ARREST Other details as noted in HPI Comment: Unobtainable due to pts medical conditions ED Past Medical Hx - Past Medical History Hx Hypertension: Yes Hx Heart Attack/AMI: Yes - Surgical History Hx Coronary Stent: Yes - Social History Smoking Status: Unknown if ever smoked - Medications Home Medications: Home Medications Medication Instructions Recorded Confirmed Last Taken Type Allopurinol 300 mg PO DAILY 02/24/16 07/29/17 07/28/17 History Colchicine 0.6 mg PO DAILY 02/24/16 07/29/17 07/28/17 History Furosemide 20 mg PO DAILY 02/24/16 07/29/17 07/28/17 History Hydralazine HCl [Apresoline TAB] 50 mg PO DAILY 02/24/16 07/29/17 07/28/17 History Amlodipine Besylate [Norvasc] 10 mg PO QDAY 07/29/17 07/29/17 07/28/17 History traMADoL [Ultram 50 MG tab] 50 mg PO Q6HR PRN 07/29/17 07/29/17 Unknown History Bumetanide [Bumex INJ] 1 mg PO Q12H 30 Days tab 08/09/17 Unknown Rx Clindamycin [Clindamycin CAP] 300 mg PO Q6H 10 Days capsule 08/09/17 Unknown Rx SILVER sulfADIAZINE 50 GRAM 1 applic TP BID #1 tube 08/09/17 Unknown Rx [Thermazene 50 Gram] Warfarin [Coumadin] 3 mg PO DAILY@1700 #30 tablet 08/09/17 Unknown Rx metOLazone [Zaroxolyn] 2.5 mg PO QDAY 30 Days tablet 08/09/17 Unknown Rx oxyCODONE /ACETAMINOPHEN [Percocet 1 tab PO Q6H PRN #20 tablet 08/09/17 Unknown Rx 5/325 mg] ED Physical Exam - Other Other exam information: General: Unresponsive, obese Head: Atraumatic Eyes: Pupils fixed and unresponsive to light ENT: Orally intubated Neck: Normal appearance, no midline tenderness Chest: No spontaneous respirations, breath sounds with bagging CV: Pulseless asystole on monitor Abdomen: Soft, obese Back: Normal inspection Extremity: No deformity, no rigor mortis Neuro: GCS 3 Psych: Unresponsive Skin: warm to touch ED Medical Decision Making - Medical Decision Making Patient remained in asystole despite resuscitation efforts with unknown down time. Additional epinephrine provided after arrival without change. Time of 12:52pm. Family came to ED and they were informed of pt's . - Differential Diagnosis mi, pe, ich, cva, arrhythmia Critical Care Time: Yes Critical care time in (mins) excluding proc time.: 10 Critical care attestation.: If time is entered above; I have spent that time in minutes in the direct care of this critically ill patient, excluding procedure time. ED Disposition Clinical Impression: Cardiopulmonary arrest, Morbid obesity with BMI of 50.0-59.9, adult Disposition: DC-20 Is pt being admited?: No Condition: Stable Time of Disposition: 13:00
[2019-08-21] MEDS ORDERED: EPINEPHrine 1:10,000 1 MG/10 ML SYRINGE ONE (23:00)
== END 2019-08-21 18:04 ==
LOC: ED 12:48
DX: I46.9 Cardiac arrest, cause unspecified (principal); I10 Essential (primary) hypertension; I25.2 Old myocardial infarction; Z95.5 Presence of coronary angioplasty implant and graft; Z79.899 Other long term (current) drug therapy
CPT/HCPCS: 99285; J0171